=== PATIENT | male | born 1955 | race Caucasian/White ===

== ENCOUNTER 2017-07-03 13:27 | Emergency (ER) | payer BC ==
[2017-07-03] MEDS ORDERED: ONDANSETRON HCL INJ/PF 4 MG/2 ML SDV IV ONE (14:34)
[2017-07-03] MEDS ORDERED: NORMAL SALINE 1000 ML 1,000 ML IV ONE ×2 (14:34→18:09)
--- NOTE | 2017-07-03 14:38 | ER Document Report ---
ED Medical Screen (RME) - General Chief Complaint: Nausea Stated Complaint: NAUSEA Time Seen by Provider: 07/03/17 14:34 Notes: Patient states since Monday he has had some left lower quadrant pain and persistent nausea. As well as right flank pain. He states he has a history of kidney stones and diverticulitis in the past. TRAVEL OUTSIDE OF THE [place] IN LAST 30 DAYS: No - Related Data Allergies/Adverse Reactions: bismuth subsalicylate [From Pepto-Bismol] Allergy (Verified 07/03/17 13:29) Past Medical History - Past Medical History Cardiac Medical History: Reports: Hx Atrial Fibrillation, Hx Hypercholesterolemia, Hx Hypertension Neurological Medical History: Denies: Hx Seizures Endocrine Medical History: Reports: Hx Diabetes Mellitus Type 2 Renal/ Medical History: Reports: Hx Kidney Stones GI Medical History: Reports: Hx Diverticulitis Past Surgical History: Reports: Hx Cardiac Surgery - ABLASION, Hx Tonsillectomy - Immunizations Hx Diphtheria, Pertussis, Tetanus Vaccination: No Physical Exam - Vital signs Vitals: Temp Pulse Resp BP Pulse Ox 99.0 F 93 20 115/65 93 07/03/17 13:51 07/03/17 13:51 07/03/17 13:51 07/03/17 13:51 07/03/17 13:51 Course - Vital Signs Vital signs: Temp Pulse Resp BP Pulse Ox 99.0 F 93 20 115/65 93 07/03/17 13:51 07/03/17 13:51 07/03/17 13:51 07/03/17 13:51 07/03/17 13:51
[2017-07-03 15:30] LABS: ABSOLUTE BASOPHILS # (AUTO) 0.1 10^3/uL (0.0-0.2); ABSOLUTE EOSINOPHILS # (AUTO) 0.1 10^3/uL (0.0-0.6); ABSOLUTE LYMPHOCYTES (AUTO) 1.4 10^3/uL (0.5-4.7); ABSOLUTE MONOCYTES (AUTO) 1.2 10^3/uL (0.1-1.4); ABSOLUTE NEUT (AUTO) 11.9 10^3/uL (1.7-8.2); BASOPHILS % (AUTO) 0.4 % (0-2); EOSINOPHILS % (AUTO) 0.4 % (0-6); HEMATOCRIT 45.3 % (37.9-51.0); LYMPHOCYTES % (AUTO) 9.7 % (13-45); MEAN CORPUSCULAR HEMOGLOBIN 27.2 pg (27.0-33.4); MEAN CORPUSCULAR HGB CONC 33.2 g/dL (32.0-36.0); MEAN CORPUSCULAR VOLUME 82 fl (80-97); MONOCYTES % (AUTO) 7.9 % (3-13); PLATELET COUNT 273 10^3/uL (150-450); RED BLOOD COUNT 5.53 10^6/uL (4.35-5.55); RED CELL DISTRIBUTION WIDTH 15.3 % (11.5-14.0); SEGMENTED NEUTROPHILS % (AUTO) 81.6 % (42-78); TOTAL CELLS COUNTED % (AUTO) 100 %; WHITE BLOOD COUNT 14.5 10^3/uL (4.0-10.5)
[2017-07-03 15:49] LABS: ALANINE AMINOTRANSFERASE 70 U/L (21-72); ALBUMIN 4.6 g/dL (3.5-5.0); ALKALINE PHOSPHATASE 100 U/L (38-126); ANION GAP 14 (5-19); APPEARANCE,URINE CLOUDY; ASPARTATE AMINO TRANSFERASE 36 U/L (17-59); BILIRUBIN,DIRECT 0.5 mg/dL (0.0-0.4); BILIRUBIN,TOTAL 1.5 mg/dL (0.2-1.3); BILIRUBIN,URINE NEGATIVE (NEGATIVE); BLOOD UREA NITROGEN 24 mg/dL (7-20); CALCIUM 9.9 mg/dL (8.4-10.2); CALCIUM OXALATE CRYSTALS,URINE RARE /HPF; CARBON DIOXIDE 22 mmol/L (22-30); CHLORIDE 100 mmol/L (98-107); COLOR,URINE YELLOW; GLUCOSE 152 mg/dL (75-110); GLUCOSE, URINE NEGATIVE (NEGATIVE); KETONES,URINE TRACE mg/dL (NEGATIVE); LEUKOCYTE ESTERASE,URINE SMALL (NEGATIVE); LIPASE 69.1 U/L (23-300); NITRITE,URINE NEGATIVE (NEGATIVE); POTASSIUM 5.5 mmol/L (3.6-5.0); PROTEIN,URINE NEGATIVE (NEGATIVE); SODIUM 135.6 mmol/L (137-145); TOTAL PROTEIN 7.6 g/dL (6.3-8.2); TRIPLE PHOSPHATE CRYSTAL,URINE RARE /HPF; URINE SPECIFIC GRAVITY 1.021; UROBILINOGEN,URINE NEGATIVE mg/dL (<2.0)
--- NOTE | 2017-07-03 16:15 | RADIOLOGY REPORT (SQ) ---
EXAM DESCRIPTION: CT ABD/PELVIS NO ORAL OR IV COMPLETED DATE/TIME: 07/03/2017 3:56 pm REASON FOR STUDY: pain COMPARISON: 06/19/2014 TECHNIQUE: CT scan of the abdomen and pelvis performed without intravenous or oral contrast. Images reviewed with lung, soft tissue, and bone windows. Reconstructed coronal and sagittal MPR images revi ewed. All images stored on PACS. All CT scanners at this facility use dose modulation, iterative reconstruction, and/or weight based d osing when appropriate to reduce radiation dose to as low as reasonably achievable (ALARA). [facility]: Dose Right [facility]: CareDose [facility]: Dose Right [facility]: Teradose 4D [facility]: Smart [employer] RADIATION DOSE: CT Rad equipment meets quality standard of care and radiation dose reduction techniq ues were employed. CTDIvol: 19.2 mGy. DLP: 1154 mGy-cm.mGy. LIMITATIONS: None. FINDINGS: LOWER CHEST: No significant findings. No nodules or infiltrates. NON-CONTRASTED LIVER, SPLEEN, ADRENALS: The liver is somewhat low in density. There are no masses. The spleen and adrenal glands are normal. PANCREAS: No masses. No peripancreatic inflammatory changes. GALLBLADDER: The gallbladder appears to be contracted. There are no stones. RIGHT KIDNEY AND URETER: No suspicious masses. Assessment limited by lack of IV contrast. There is a 2 mm nonobstructing calculus. No hydronephrosis or hydroureter. LEFT KIDNEY AND URETER: No suspicious masses. Assessment limited by lack of IV contrast. There is a 10 x 12 mm intrarenal calculus. There is a 3 mm calculus at the left ureteral vesicle junction. M ild left hydronephrosis. AORTA AND RETROPERITONEUM: No aneurysm. No retroperitoneal masses or adenopathy. BOWEL AND PERITONEAL CAVITY: No obvious masses or inflammatory changes. No free fluid. APPENDIX: Normal. PELVIS, BLADDER, AND ABDOMINAL WALL:No abnormal masses. No free fluid. Bladder normal. BONES: No significant findings. OTHER: No other significant finding. IMPRESSION: 1. There is a relatively faint 3 mm calculus at the left ureteral vesicle junction resu lting in mild left hydronephrosis. 2. There is a 10 x 12 mm intrarenal calculus on the left. 3. There is fatty infiltration of the liver. COMMENT: Quality ID # [id number]: Final reports with documentation of one or more dose reduction techniques (e.g., Automated exposure control, adjustment of the mA and/or kV according to patient size, use of iterative reconstruction technique) TECHNICAL DOCUMENTATION: JOB ID: [id number] [employer]- All Rights Reserved Reading location - IP/workstation name: [email or web address]
[2017-07-03] MEDS ORDERED: METOCLOPRAMIDE HCL INJ/PF 10 MG/2 ML SDV IV ONE (18:09)
--- NOTE | 2017-07-03 18:09 | ER Document Report ---
ED GI/ - General Mode of Arrival: Ambulatory Information source: Patient TRAVEL OUTSIDE OF THE [place]. IN LAST 30 DAYS: No <TAMANNA QUINTERO - Last Filed: 07/03/17 21:04> <YANET HUI - Last Filed: 07/03/17 22:14> - General Chief Complaint: Nausea Stated Complaint: NAUSEA Time Seen by Provider: 07/03/17 14:34 Notes: Patient is a 62 year old male with a history of HTN, Type 2 diabetes,high cholesterol, diverticulitis and kidney stones presents to the emergency department complaining of left lower quadrant abdominal pain with associated symptoms of nausea and right flank pain onset 2 days ago. Patient states that he has been continuously vomiting for 2 days and states that this is his most concerning symptom. Patient denies any dysuria or fever. Patient states that he recently had a heart ablation. (TAMANNA QUINTERO) - Related Data Allergies/Adverse Reactions: bismuth subsalicylate [From Pepto-Bismol] Allergy (Verified 07/03/17 13:29) Past Medical History - General Information source: Patient - Social History Smoking Status: Unknown if Ever Smoked Chew tobacco use (# tins/day): No Frequency of alcohol use: None Drug Abuse: None Family History: Reviewed & Not Pertinent Patient has suicidal ideation: No Patient has homicidal ideation: No - Past Medical History Cardiac Medical History: Reports: Hx Atrial Fibrillation - ablation, Hx Hypercholesterolemia, Hx Hypertension Endocrine Medical History: Reports: Hx Diabetes Mellitus Type 2 Renal/ Medical History: Reports: Hx Kidney Stones GI Medical History: Reports: Hx Diverticulitis Past Surgical History: Reports: Hx Cardiac Surgery - ablation, Hx Tonsillectomy - Immunizations Hx Diphtheria, Pertussis, Tetanus Vaccination: No <TAMANNA QUINTERO - Last Filed: 07/03/17 21:04> Review of Systems - Review of Systems Constitutional: No symptoms reported EENT: No symptoms reported Cardiovascular: No symptoms reported Respiratory: No symptoms reported Gastrointestinal: See HPI, Abdominal pain, Nausea, Vomiting Genitourinary: See HPI, Flank pain Male Genitourinary: No symptoms reported Musculoskeletal: No symptoms reported Skin: No symptoms reported Hematologic/Lymphatic: No symptoms reported Neurological/Psychological: No symptoms reported -: Yes All other systems reviewed and negative <TAMANNA QUINTERO - Last Filed: 07/03/17 21:04> Physical Exam <LEONTAMANNA - Last Filed: 07/03/17 21:04> <YANET HUI - Last Filed: 07/03/17 22:14> - Vital signs Vitals: Temp Pulse Resp BP Pulse Ox 99.0 F 93 20 115/65 93 07/03/17 13:51 07/03/17 13:51 07/03/17 13:51 07/03/17 13:51 07/03/17 13:51 - Notes Notes: GENERAL: Alert, interacts well. No acute distress. Apeears uncomfortable. HEAD: Normocephalic, atraumatic. EYES: Pupils equal, round, and reactive to light. Extraocular movements intact. ENT: Oral mucosa dry, tongue midline. NECK: Full range of motion. Supple. Trachea midline. LUNGS: Clear to auscultation bilaterally, no wheezes, rales, or rhonchi. No respiratory distress. HEART: Regular rate and rhythm. No murmurs, gallops, or rubs. ABDOMEN: Soft, tender to palpation to the left pelvic area. Non-distended. Bowel sounds present in all 4 quadrants. EXTREMITIES: Moves all 4 extremities spontaneously. NEUROLOGICAL: Alert and oriented x3. Normal speech. PSYCH: Normal affect, normal mood. SKIN: Warm, dry, normal turgor. No rashes or lesions noted. (TAMANNA QUINTERO) Course - Laboratory Result Diagrams: 07/03/17 15:12 07/03/17 15:12 <TAMANNA QUINTERO - Last Filed: 07/03/17 21:04> - Laboratory Result Diagrams: 07/03/17 15:12 07/03/17 15:12 - Diagnostic Test Radiology reviewed: Reports reviewed <YANET HUI - Last Filed: 07/03/17 22:14> - Re-evaluation Re-evalutation: 07/03/17 18:36 Dr. Santana states the patient does not need to be transferred to [place] unless he spikes a fever. 07/03/17 19:48 Patient states he is currently feeling better. (TAMANNA QUINTERO) Patient presents with abdominal pain nausea and vomiting. Took Zofran at home without relief. CT showing ureteral stone. Patient also with some bacteria in urine. Discussed with Dr. Santana at [facility] who does not feel that the patient needs to be transferred at this time. Feels that elevation in BUN and creatinine is from vomiting. Patient was given Reglan and nausea able to take p.o. without difficulty. Pain is resolved. Nausea is resolved. Patient would prefer to go home at this time. He will be discharged home with medication for pain and nausea, as well as a prescription for Keflex. Urine culture has been sent. Patient is instructed to follow-up with urology and return immediately if there are any worsening or concerning symptoms. Understands and agrees with plan. Stable for discharge. (YANET HUI) - Vital Signs Vital signs: Temp Pulse Resp BP Pulse Ox 98.3 F 86 20 153/80 H 93 07/03/17 20:48 07/03/17 20:48 07/03/17 20:48 07/03/17 20:48 07/03/17 20:48 - Laboratory Laboratory results interpreted by me: 07/03/17 07/03/17 07/03/17 15:12 15:12 15:12 WBC 14.5 H RDW 15.3 H Seg Neutrophils % 81.6 H Lymphocytes % 9.7 L Absolute Neutrophils 11.9 H Sodium 135.6 L Potassium 5.5 H BUN 24 H Creatinine 1.58 H Est GFR ( Amer) 54 L Est GFR (Non-Af Amer) 45 L Glucose 152 H Total Bilirubin 1.5 H Direct Bilirubin 0.5 H Urine Ketones TRACE H Urine Blood MODERATE H Ur Leukocyte Esterase SMALL H Urine Ascorbic Acid 40 H Discharge <TAMANNA QUINTERO - Last Filed: 07/03/17 21:04> <YANET HUI - Last Filed: 07/03/17 22:14> - Discharge Clinical Impression: Ureteral stone UTI (urinary tract infection) Qualifiers: Urinary tract infection type: site unspecified Hematuria presence: with hematuria Qualified Code(s): N39.0 - Urinary tract infection, site not specified ; R31.9 - Hematuria, unspecified; R31.9 - Hematuria, unspecified Condition: Stable Disposition: HOME, SELF-CARE Instructions: Kidney Stone ([facility]), Urinary Tract Infection ([facility]) Additional Instructions: Please strain your urine. Follow-up with urology this week. Return immediately if you have any worsening or concerning symptoms. Prescriptions: Hydrocodone/Acetaminophen [[place] 5-325 mg Tablet] 1 tab PO Q4HP PRN #20 tablet PRN Reason: Cephalexin Monohydrate [Keflex 500 mg Capsule] 500 mg PO Q6H 5 Days #40 capsule Metoclopramide HCl [Reglan 10 mg Tablet] 1 tab PO TIDP PRN #25 tablet PRN Reason: Oxycodone HCl/Acetaminophen [Percocet 5-325 mg Tablet] 1 - 2 tab PO Q4H PRN #20 tablet PRN Reason: Referrals: WENDI SANTANA MD [NO LOCAL MD] - Follow up in 3-5 days CHARLIE MALDONADO MD [Primary Care Provider] - Follow up tomorrow Scribe Attestation: 07/03/17 22:14 I personally performed the services described in the documentation, reviewed and edited the documentation which was dictated to the scribe in my presence, and it accurately records my words and actions. (YANET HUI) Scribe Documentation - Scribe Written by Marcell:: Marcell Winters, 07/03/2017 18:33 acting as scribe for :: Jeanie <TAMANNA QUINTERO - Last Filed: 07/03/17 21:04>
[2017-07-03] MEDS ORDERED: CEPHALEXIN 500 MG CAPSULE PO ONE (20:09)
[2017-07-03] MEDS ORDERED: HYDROCODONE/ACETAMINOPHEN 5-325 MG (6 TAB/ER DISP) PO PRN (20:39)
[2017-07-03 21:06] VITALS: BP 153/80
== END 2017-07-03 21:06 | disposition home or self-care (01) ==
LOC: ER 13:27
DX: N13.2 Hydronephrosis with renal and ureteral calculous obstruction (principal); N39.0 Urinary tract infection, site not specified; R31.9 Hematuria, unspecified; R10.32 Left lower quadrant pain; R11.2 Nausea with vomiting, unspecified; I10 Essential (primary) hypertension; E11.9 Type 2 diabetes mellitus without complications; Z87.19 Personal history of other diseases of the digestive system; Z98.890 Other specified postprocedural states; Z88.8 Allergy status to other drugs, medicaments and biological substances
CPT/HCPCS: 99284; 96361; 96374; 96375; 36415; 87086; 83690; 85025; 80053; 81001; 74176; J2765; J2405; J7030

== ENCOUNTER 2017-10-21 15:42 | Emergency (ER) | payer BC ==
[2017-10-21] MEDS ORDERED: OXYCODONE-ACETAMINOPHEN 5-325 MG TABLET PO ONE (16:21)
[2017-10-21] MEDS ORDERED: ONDANSETRON 4 MG TAB.RAPDIS PO ONE (16:21)
--- NOTE | 2017-10-21 16:25 | ER Document Report ---
ED Medical Screen (RME) - General TRAVEL OUTSIDE OF THE [place]. IN LAST 30 DAYS: No <OLIVIA WARD - Last Filed: 10/21/17 16:25> <KYLEIGH HAND - Last Filed: 10/21/17 16:28> <MARLENI GARZA - Last Filed: 10/21/17 18:02> - General Chief Complaint: Flank Pain Stated Complaint: BLOOD IN URINE, SIDE PAIN, NAUSEA Time Seen by Provider: 10/21/17 16:13 Notes: Patient presents with hematuria and left lower quadrant pain for the last day. Feels similar to previous kidney stones he has had in the past. Chart review shows that patient had 3 mm left sided ureter vesicular junction stone back in June of this year. However, he also had a 10 x 12 mm stone that was intrarenal on the left. concern of if stone has displaced that he would possibly need lithotripsy versus stenting. Therefore, we will perform CT of abdomen pelvis for concern of obstructing stone. (KYLEIGH HAND) - Related Data Allergies/Adverse Reactions: bismuth subsalicylate [From Pepto-Bismol] Allergy (Verified 10/21/17 16:16) Past Medical History - Social History Chew tobacco use (# tins/day): No Frequency of alcohol use: None Drug Abuse: None - Past Medical History Cardiac Medical History: Reports: Hx Atrial Fibrillation - ablation, Hx Hypercholesterolemia, Hx Hypertension Neurological Medical History: Denies: Hx Seizures Endocrine Medical History: Reports: Hx Diabetes Mellitus Type 2 Renal/ Medical History: Reports: Hx Kidney Stones. Denies: Hx Peritoneal Dialysis GI Medical History: Reports: Hx Diverticulitis Past Surgical History: Reports: Hx Cardiac Surgery - ablation, Hx Tonsillectomy - Immunizations Hx Diphtheria, Pertussis, Tetanus Vaccination: No <OLIVIA WARD - Last Filed: 10/21/17 16:25> - Vital signs Vitals: Temp Pulse Resp BP Pulse Ox 97.7 F 86 20 119/72 94 10/21/17 15:59 10/21/17 15:59 10/21/17 15:59 10/21/17 15:59 10/21/17 15:59 Course - Laboratory Result Diagrams: 10/21/17 16:40 10/21/17 16:40 <MARLENI GARZA - Last Filed: 10/21/17 18:02> - Vital Signs Vital signs: Temp Pulse Resp BP Pulse Ox 97.7 F 86 20 119/72 94 10/21/17 15:59 10/21/17 15:59 10/21/17 15:59 10/21/17 15:59 10/21/17 15:59 - Laboratory Laboratory results interpreted by me: 10/21/17 10/21/17 10/21/17 16:30 16:40 16:40 WBC 15.0 H RDW 14.1 H Absolute Neutrophils 11.1 H Absolute Monocytes 1.8 H BUN 27 H Creatinine 1.30 H Est GFR (Non-Af Amer) 56 L Glucose 167 H Total Bilirubin 1.4 H Urine Ketones TRACE H Doctor's Discharge <OLIVIA WARD - Last Filed: 10/21/17 16:25> <KYLEIGH HAND - Last Filed: 10/21/17 16:28> <MARLENI GARZA - Last Filed: 10/21/17 18:02> - Discharge Referrals: CHARLIE MALDONADO MD [Primary Care Provider] - Follow up as needed
[2017-10-21] MEDS ORDERED: HYDROCODONE/ACETAMINOPHEN 5-325 MG TABLET PO ONE (16:32)
[2017-10-21 17:05] LABS: ABSOLUTE EOSINOPHILS # (AUTO) 0.1 10^3/uL (0.0-0.6); ABSOLUTE MONOCYTES (AUTO) 1.8 10^3/uL (0.1-1.4); ABSOLUTE NEUT (AUTO) 11.1 10^3/uL (1.7-8.2); BASOPHILS % (AUTO) 0.3 % (0-2); EOSINOPHILS % (AUTO) 0.5 % (0-6); HEMOGLOBIN 15.2 g/dL (13.5-17.0); LYMPHOCYTES % (AUTO) 13.3 % (13-45); MEAN CORPUSCULAR HEMOGLOBIN 28.2 pg (27.0-33.4); MEAN CORPUSCULAR HGB CONC 33.6 g/dL (32.0-36.0); MEAN CORPUSCULAR VOLUME 84 fl (80-97); MONOCYTES % (AUTO) 12.2 % (3-13); PLATELET COUNT 269 10^3/uL (150-450); RED BLOOD COUNT 5.38 10^6/uL (4.35-5.55); RED CELL DISTRIBUTION WIDTH 14.1 % (11.5-14.0); SEGMENTED NEUTROPHILS % (AUTO) 73.7 % (42-78); TOTAL CELLS COUNTED % (AUTO) 100 %
[2017-10-21 17:14] LABS: APPEARANCE,URINE SLIGHTLY-CLOUDY; BILIRUBIN,URINE NEGATIVE (NEGATIVE); CALCIUM OXALATE CRYSTALS,URINE MODERATE /HPF; COLOR,URINE YELLOW; GLUCOSE, URINE NEGATIVE (NEGATIVE); KETONES,URINE TRACE mg/dL (NEGATIVE); LEUKOCYTE ESTERASE,URINE NEGATIVE (NEGATIVE); NITRITE,URINE NEGATIVE (NEGATIVE); PROTEIN,URINE NEGATIVE (NEGATIVE); URINE SPECIFIC GRAVITY 1.023; UROBILINOGEN,URINE NEGATIVE mg/dL (<2.0)
--- NOTE | 2017-10-21 17:15 | RADIOLOGY REPORT (SQ) ---
EXAM DESCRIPTION: CT ABD/PELVIS NO ORAL OR IV COMPLETED DATE/TIME: 10/21/2017 4:59 pm REASON FOR STUDY: kidney stone COMPARISON: 07/03/2017 TECHNIQUE: CT scan of the abdomen and pelvis performed without intravenous or oral contrast. Images reviewed with lung, soft tissue, and bone windows. Reconstructed coronal and sagittal MPR images revi ewed. All images stored on PACS. All CT scanners at this facility use dose modulation, iterative reconstruction, and/or weight based d osing when appropriate to reduce radiation dose to as low as reasonably achievable (ALARA). [facility]: Dose Right [facility]: CareDose [facility]: Dose Right [facility]: Teradose 4D [facility]: [employer] RADIATION DOSE: CT Rad equipment meets quality standard of care and radiation dose reduction techniq ues were employed. CTDIvol: 19.2 mGy. DLP: 1183 mGy-cm.mGy. LIMITATIONS: None. FINDINGS: LOWER CHEST: No significant findings. No nodules or infiltrates. NON-CONTRASTED LIVER, SPLEEN, ADRENALS: Evaluation limited by lack of IV contrast. No identified sign ificant masses. Hepatic steatosis. PANCREAS: No masses. No peripancreatic inflammatory changes. GALLBLADDER: No identified stones by CT criteria. No inflammatory changes to suggest cholecystitis. RIGHT KIDNEY AND URETER: No suspicious masses. Assessment limited by lack of IV contrast. 2 punctat e, nonobstructing nephroliths. No hydronephrosis or hydroureter. LEFT KIDNEY AND URETER: No suspicious masses. Assessment limited by lack of IV contrast. Moderate h ydronephrosis on the basis of a 1.1 x 0.9 x 1.3 cm proximal ureterolith. AORTA AND RETROPERITONEUM: No aneurysm. No retroperitoneal masses or adenopathy. BOWEL AND PERITONEAL CAVITY: No obvious masses or inflammatory changes. No free fluid. APPENDIX: Normal. PELVIS, BLADDER, AND ABDOMINAL WALL:No abnormal masses. No free fluid. Bladder normal. BONES: No significant findings. OTHER: No other significant finding. IMPRESSION: 1. Moderate left-sided hydronephrosis on the basis of a 1.1 x 0.9 x 1.3 cm proximal ure terolith. 2. Hepatic steatosis. COMMENT: Quality ID # [id number]: Final reports with documentation of one or more dose reduction techniques (e.g., Automated exposure control, adjustment of the mA and/or kV according to patient size, use of iterative reconstruction technique) TECHNICAL DOCUMENTATION: JOB ID: [id number] [employer]- All Rights Reserved Reading location - IP/workstation name: [email or web address]
--- NOTE | 2017-10-21 17:15 | ER Document Report ---
ED General - General Chief Complaint: Flank Pain Stated Complaint: BLOOD IN URINE, SIDE PAIN, NAUSEA Time Seen by Provider: 10/21/17 16:13 Mode of Arrival: Ambulatory Information source: Patient Notes: 62-year-old male presents emergency department planes of left flank, left lower quadrant pain and hematuria. Patient states that this is been going on for 1 day. He states that he has had some kidney stones in the past. He states that this feels similar to his previous stones. He states that the last time he had a stone was in June. He says it was 3 mm in size. Patient has had associated nausea vomiting. He denies any diarrhea, constipation, penile discharge, testicular pain. TRAVEL OUTSIDE OF THE [place] IN LAST 30 DAYS: No - HPI Onset: Yesterday Onset/Duration: Sudden Quality of pain: Achy, Stabbing, Throbbing Severity: Moderate Associated symptoms: Nausea, Vomiting Exacerbated by: Denies Relieved by: Denies Similar symptoms previously: Yes Recently seen / treated by doctor: No - Related Data Allergies/Adverse Reactions: bismuth subsalicylate [From Pepto-Bismol] Allergy (Verified 10/21/17 16:16) Past Medical History - Social History Smoking Status: Never Smoker Chew tobacco use (# tins/day): No Frequency of alcohol use: None Drug Abuse: None Family History: Reviewed & Not Pertinent Patient has suicidal ideation: No Patient has homicidal ideation: No - Past Medical History Cardiac Medical History: Reports: Hx Atrial Fibrillation - ablation, Hx Hypercholesterolemia, Hx Hypertension Neurological Medical History: Denies: Hx Seizures Endocrine Medical History: Reports: Hx Diabetes Mellitus Type 2 Renal/ Medical History: Reports: Hx Kidney Stones. Denies: Hx Peritoneal Dialysis GI Medical History: Reports: Hx Diverticulitis Past Surgical History: Reports: Hx Cardiac Surgery - ablation, Hx Tonsillectomy - Immunizations Hx Diphtheria, Pertussis, Tetanus Vaccination: No Review of Systems - Review of Systems Constitutional: No symptoms reported EENT: No symptoms reported Cardiovascular: No symptoms reported Respiratory: No symptoms reported Gastrointestinal: Abdominal pain, Nausea, Vomiting Genitourinary: No symptoms reported Male Genitourinary: No symptoms reported Musculoskeletal: No symptoms reported Skin: No symptoms reported Hematologic/Lymphatic: No symptoms reported Neurological/Psychological: No symptoms reported -: Yes All other systems reviewed and negative Physical Exam - Vital signs Vitals: Temp Pulse Resp BP Pulse Ox 97.7 F 86 20 119/72 94 10/21/17 15:59 10/21/17 15:59 10/21/17 15:59 10/21/17 15:59 10/21/17 15:59 Interpretation: Normal - Notes Notes: PHYSICAL EXAMINATION: GENERAL: Well-appearing, well-nourished and in no acute distress. HEAD: Atraumatic, normocephalic. EYES: Pupils equal round and reactive to light, extraocular movements intact, sclera anicteric, conjunctiva are normal. ENT: Nares patent, oropharynx clear without exudates. Moist mucous membranes. NECK: Normal range of motion, supple without lymphadenopathy LUNGS: Breath sounds clear to auscultation bilaterally and equal. No wheezes rales or rhonchi. HEART: Regular rate and rhythm without murmurs ABDOMEN: Soft, nontender, nondistended abdomen. No guarding, no rebound. No masses appreciated. Musculoskeletal: Normal range of motion, no pitting or edema. No cyanosis. NEUROLOGICAL: Cranial nerves grossly intact. Normal speech, normal gait. Normal sensory, motor exams PSYCH: Normal mood, normal affect. SKIN: Warm, Dry, normal turgor, no rashes or lesions noted. Course - Re-evaluation Re-evalutation: 10/21/17 17:58 Exam unremarkable. Labs and imaging obtained. Labs significant for elevated WBC and slightly elevated creatinine. UA is significant for bacteria. CT abd/pelvis shows a L proximal ureter stone that has been previously evaluated. I will start the patient on antibiotics, pain medicine, nausea medicine and have him follow-up with urology. Patient is currently stable and asymptomatic. I discussed plan of care with the patient. He is agreeable with discharge home. 10/21/17 19:07 - Vital Signs Vital signs: Temp Pulse Resp BP Pulse Ox 97.7 F 86 20 119/72 94 10/21/17 15:59 10/21/17 15:59 10/21/17 15:59 10/21/17 15:59 10/21/17 15:59 - Laboratory Result Diagrams: 10/21/17 16:40 10/21/17 16:40 Laboratory results interpreted by me: 10/21/17 10/21/17 10/21/17 16:30 16:40 16:40 WBC 15.0 H RDW 14.1 H Absolute Neutrophils 11.1 H Absolute Monocytes 1.8 H BUN 27 H Creatinine 1.30 H Est GFR (Non-Af Amer) 56 L Glucose 167 H Total Bilirubin 1.4 H Urine Ketones TRACE H Discharge - Discharge Clinical Impression: Left flank pain Condition: Good Disposition: HOME, SELF-CARE Instructions: Abdominal Pain ([facility]) Prescriptions: Hydrocodone/Acetaminophen [[place] 5-325 mg Tablet] 1 tab PO Q4 #5 tablet Ondansetron [Zofran Odt 4 mg Tablet] 1 - 2 tab PO Q4H PRN #15 tab.rapdis PRN Reason: For Nausea/Vomiting Referrals: CHARLIE MALDONADO MD [Primary Care Provider] - Follow up as needed JACK HOLLAND II, MD [[facility]] - Follow up as needed
[2017-10-21 17:17] LABS: ALANINE AMINOTRANSFERASE 67 U/L (21-72); ALKALINE PHOSPHATASE 70 U/L (38-126); ANION GAP 13 (5-19); ASPARTATE AMINO TRANSFERASE 54 U/L (17-59); BILIRUBIN,DIRECT 0.3 mg/dL (0.0-0.4); BILIRUBIN,TOTAL 1.4 mg/dL (0.2-1.3); BLOOD UREA NITROGEN 27 mg/dL (7-20); CALCIUM 9.3 mg/dL (8.4-10.2); CARBON DIOXIDE 26 mmol/L (22-30); CHLORIDE 98 mmol/L (98-107); GLUCOSE 167 mg/dL (75-110); POTASSIUM 4.9 mmol/L (3.6-5.0); SODIUM 137.2 mmol/L (137-145); TOTAL PROTEIN 6.7 g/dL (6.3-8.2)
[2017-10-21 20:27] VITALS: BP 140/75
== END 2017-10-21 20:00 | disposition home or self-care (01) ==
LOC: ER 15:42
DX: N13.2 Hydronephrosis with renal and ureteral calculous obstruction (principal); R31.9 Hematuria, unspecified; R10.32 Left lower quadrant pain; R10.9 Unspecified abdominal pain; R11.2 Nausea with vomiting, unspecified; D72.829 Elevated white blood cell count, unspecified; I10 Essential (primary) hypertension; E11.9 Type 2 diabetes mellitus without complications; Z88.8 Allergy status to other drugs, medicaments and biological substances
CPT/HCPCS: 99284; 36415; 87086; 85025; 87088; 80053; 81001; 74176; S0119

== ENCOUNTER 2017-10-22 18:31 | Inpatient (IN) | payer BC ==
[2017-10-22] MEDS ORDERED: HYDROMORPHONE HCL INJ/PF 2 MG/ML AMPULE IV ONE (19:37)
[2017-10-22] MEDS ORDERED: NORMAL SALINE 1000 ML 1,000 ML IV ONE (19:37)
[2017-10-22] MEDS ORDERED: METOCLOPRAMIDE HCL INJ/PF 10 MG/2 ML SDV IV ONE (19:37)
--- NOTE | 2017-10-22 19:37 | ER Document Report ---
ED Medical Screen (RME) - General Chief Complaint: Possible Kidney Stone Stated Complaint: LEFT FLANK PAIN,NAUSEA Time Seen by Provider: 10/22/17 19:36 Mode of Arrival: Ambulatory Information source: Patient, COUNTS INCLUDE 234 BEDS AT THE [facility] Records Notes: 62-year-old male who was diagnosed with a kidney stone yesterday presents with complaints of continued pain nausea vomiting inability to keep anything down I have greeted and performed a rapid initial assessment of this patient. A comprehensive ED assessment and evaluation of the patient, analysis of test results and completion of the medical decision making process will be conducted by additional ED providers. PHYSICAL EXAMINATION: GENERAL: Well-appearing, well-nourished and in no acute distress. HEAD: Atraumatic, normocephalic. EYES: Pupils equal round extraocular movements intact, conjunctiva are normal. ENT: Nares patent NECK: Normal range of motion LUNGS: No respiratory distress Musculoskeletal: Normal range of motion NEUROLOGICAL: Normal speech, normal gait. PSYCH: Normal mood, normal affect. SKIN: Warm, Dry, normal turgor, no rashes or lesions noted. TRAVEL OUTSIDE OF THE [place] IN LAST 30 DAYS: No - Related Data Allergies/Adverse Reactions: bismuth subsalicylate [From Pepto-Bismol] Allergy (Verified 10/22/17 19:31) Past Medical History - Social History Chew tobacco use (# tins/day): No Frequency of alcohol use: None Drug Abuse: None - Past Medical History Cardiac Medical History: Reports: Hx Atrial Fibrillation - ablation, Hx Hypercholesterolemia, Hx Hypertension Neurological Medical History: Denies: Hx Seizures Endocrine Medical History: Reports: Hx Diabetes Mellitus Type 2 Renal/ Medical History: Reports: Hx Kidney Stones. Denies: Hx Peritoneal Dialysis GI Medical History: Reports: Hx Diverticulitis Past Surgical History: Reports: Hx Cardiac Surgery - ablation, Hx Tonsillectomy - Immunizations Hx Diphtheria, Pertussis, Tetanus Vaccination: No Physical Exam - Vital signs Vitals: Temp Pulse Resp BP Pulse Ox 98.4 F 98 24 H 141/77 H 96 10/22/17 18:50 10/22/17 18:50 10/22/17 18:50 10/22/17 18:50 10/22/17 18:50 Course - Vital Signs Vital signs: Temp Pulse Resp BP Pulse Ox 98.4 F 98 24 H 141/77 H 96 10/22/17 18:50 10/22/17 18:50 10/22/17 18:50 10/22/17 18:50 10/22/17 18:50 Doctor's Discharge - Discharge Referrals: CHARLIE MALDONADO MD [Primary Care Provider] - Follow up as needed
[2017-10-22 20:35] LABS: ABSOLUTE LYMPHOCYTES (AUTO) 1.5 10^3/uL (0.5-4.7); ABSOLUTE MONOCYTES (AUTO) 1.4 10^3/uL (0.1-1.4); ABSOLUTE NEUT (AUTO) 11.4 10^3/uL (1.7-8.2); BASOPHILS % (AUTO) 0.1 % (0-2); EOSINOPHILS % (AUTO) 0.3 % (0-6); HEMOGLOBIN 14.7 g/dL (13.5-17.0); LYMPHOCYTES % (AUTO) 10.3 % (13-45); MEAN CORPUSCULAR HEMOGLOBIN 27.8 pg (27.0-33.4); MEAN CORPUSCULAR HGB CONC 33.4 g/dL (32.0-36.0); MEAN CORPUSCULAR VOLUME 83 fl (80-97); MONOCYTES % (AUTO) 9.8 % (3-13); PLATELET COUNT 285 10^3/uL (150-450); RED BLOOD COUNT 5.28 10^6/uL (4.35-5.55); RED CELL DISTRIBUTION WIDTH 14.2 % (11.5-14.0); SEGMENTED NEUTROPHILS % (AUTO) 79.5 % (42-78); TOTAL CELLS COUNTED % (AUTO) 100 %; WHITE BLOOD COUNT 14.3 10^3/uL (4.0-10.5)
[2017-10-22 20:51] LABS: ALANINE AMINOTRANSFERASE 65 U/L (21-72); ALKALINE PHOSPHATASE 81 U/L (38-126); ANION GAP 15 (5-19); ASPARTATE AMINO TRANSFERASE 43 U/L (17-59); BILIRUBIN,DIRECT 0.5 mg/dL (0.0-0.4); BILIRUBIN,TOTAL 1.8 mg/dL (0.2-1.3); BLOOD UREA NITROGEN 24 mg/dL (7-20); CALCIUM 9.3 mg/dL (8.4-10.2); CARBON DIOXIDE 24 mmol/L (22-30); CHLORIDE 96 mmol/L (98-107); GLUCOSE 197 mg/dL (75-110); POTASSIUM 4.8 mmol/L (3.6-5.0); SODIUM 135.4 mmol/L (137-145); TOTAL PROTEIN 6.7 g/dL (6.3-8.2)
--- NOTE | 2017-10-22 21:14 | ER Document Report ---
ED GI/ - General Chief Complaint: Possible Kidney Stone Stated Complaint: LEFT FLANK PAIN,NAUSEA Time Seen by Provider: 10/22/17 19:36 Mode of Arrival: Ambulatory Notes: Patient is a 62-year-old male that comes emergency department for chief complaint of pain to his left flank and abdomen on the left side along with being very nauseated and having multiple episodes of dry heaves today. He has had about 5 episodes of vomiting today. Patient was seen here yesterday, diagnosed with a left-sided ureterolithiasis, patient states that he wanted to go home, he is taking his medications at home but they do not seem to be working. Patient denies fever or chills. Denies dysuria. Denies any other complaints. Patient has had kidney stones in the past which he has passed. Other medical history includes atrial fibrillation (post ablation) and Eliquis although he has not taken Eliquis for the past 5 days anticipating a back injection. TRAVEL OUTSIDE OF THE [place] IN LAST 30 DAYS: No - Related Data Allergies/Adverse Reactions: bismuth subsalicylate [From Pepto-Bismol] Allergy (Verified 10/22/17 19:31) Past Medical History - General Information source: Patient, [facility] Records - Social History Smoking Status: Never Smoker Chew tobacco use (# tins/day): No Frequency of alcohol use: None Drug Abuse: None Family History: Reviewed & Not Pertinent Patient has suicidal ideation: No Patient has homicidal ideation: No - Past Medical History Cardiac Medical History: Reports: Hx Atrial Fibrillation - ablation, Hx Hypercholesterolemia, Hx Hypertension Neurological Medical History: Denies: Hx Seizures Endocrine Medical History: Reports: Hx Diabetes Mellitus Type 2 Renal/ Medical History: Reports: Hx Kidney Stones. Denies: Hx Peritoneal Dialysis GI Medical History: Reports: Hx Diverticulitis Past Surgical History: Reports: Hx Cardiac Surgery - ablation, Hx Tonsillectomy - Immunizations Hx Diphtheria, Pertussis, Tetanus Vaccination: No Review of Systems - Review of Systems Constitutional: No symptoms reported EENT: No symptoms reported Cardiovascular: No symptoms reported Respiratory: No symptoms reported Gastrointestinal: See HPI Genitourinary: See HPI Male Genitourinary: No symptoms reported Musculoskeletal: No symptoms reported Skin: No symptoms reported Hematologic/Lymphatic: No symptoms reported Neurological/Psychological: No symptoms reported Physical Exam - Vital signs Vitals: Temp Pulse Resp BP Pulse Ox 98.4 F 98 24 H 141/77 H 96 10/22/17 18:50 10/22/17 18:50 10/22/17 18:50 10/22/17 18:50 10/22/17 18:50 - Notes Notes: GENERAL: Alert, interacts well. Patient slightly restless and mildly uncomfortable in appearance but no severe distress. HEAD: Normocephalic, atraumatic. EYES: Pupils equal, round, and reactive to light. Extraocular movements intact. ENT: Oral mucosa moist, tongue midline. NECK: Full range of motion. Supple. Trachea midline. LUNGS: Clear to auscultation bilaterally, no wheezes, rales, or rhonchi. No respiratory distress. HEART: Regular rate and rhythm. No murmur ABDOMEN: Soft, non-tender. Non-distended. Bowel sounds present in all 4 quadrants. EXTREMITIES: Moves all 4 extremities spontaneously. No edema, normal radial and dorsalis pedis pulses bilaterally. No cyanosis. BACK: no cervical, thoracic, lumbar midline tenderness. Right CVA tenderness. Normal distal neurovascular exam. NEUROLOGICAL: Alert and oriented x3. Normal speech. [cranial nerves II through XII grossly intact]. SKIN: Warm, dry, normal turgor. No rashes or lesions noted. Course - Re-evaluation Re-evalutation: Patient appears mildly uncomfortable but not in any severe distress. Soft abdomen. He still reports he is extremely nauseated. He has had dry heaves multiple times a day although he did take his medications earlier. No fever. CBC without significant change, chemistry shows renal insufficiency but similar to prior. Urine shows ketones and elevated specific gravity consistent with dehydration. Giving IV fluids and medications. Patient's CAT scan shows a left proximal ureter obstructing stone with hydronephrosis, this is a very large stone at 1.3 cm. Unfortunately patient has done very poorly with outpatient management, even though this was attempted and patient wanted to attempt this. Called and spoke with Dr. Elliott, urology flight information expediter, after discussion recommendation is for patient to be admitted to hospitalist service with urology consult, requests the patient be kept n.p.o. after midnight and not be given his Eliquis. He states that he might need to keep patient until Monday, might need the laser. 10/22/17 21:35 Patient requesting to be given his Tekosyn, told never to miss a dose by his pen tender. Called and spoke with Dr. Monroy, on-call for Dr. Bassett (patient's primary care provider), patient will be admitted to telemetry full admission. - Vital Signs Vital signs: Temp Pulse Resp BP Pulse Ox 98.4 F 98 24 H 141/77 H 96 10/22/17 18:50 10/22/17 18:50 10/22/17 18:50 10/22/17 18:50 10/22/17 18:50 - Laboratory Result Diagrams: 10/22/17 19:46 10/22/17 19:46 Laboratory results interpreted by me: 10/22/17 10/22/17 10/22/17 19:46 19:46 21:20 WBC 14.3 H RDW 14.2 H Seg Neutrophils % 79.5 H Lymphocytes % 10.3 L Absolute Neutrophils 11.4 H Sodium 135.4 L Chloride 96 L BUN 24 H Creatinine 1.37 H Est GFR (Non-Af Amer) 53 L Glucose 197 H Total Bilirubin 1.8 H Direct Bilirubin 0.5 H Urine Protein 30 H Urine Glucose (UA) 50 H Urine Ketones 20 H Urine Urobilinogen 2.0 H Urine Ascorbic Acid 40 H Discharge - Discharge Clinical Impression: Ureterolithiasis, Flank pain, Acute renal insufficiency Vomiting Qualifiers: Vomiting type: unspecified Vomiting Intractability: intractable Nausea presence : with nausea Qualified Code(s): R11.2 - Nausea with vomiting, unspecified Condition: Stable Disposition: ADMITTED INPATIENT Admitting Provider: Eliana - for Dr. Bassett Unit Admitted: Telemetry
[2017-10-22] MEDS ORDERED: DIPHENHYDRAMINE HCL 50 MG/ML VIAL IV ONE (21:27)
[2017-10-22] MEDS ORDERED: DOFETILIDE 125 MCG CAPSULE PO ONE (21:34)
[2017-10-22] MEDS ORDERED: DOFETILIDE 125 MCG CAPSULE ONE (21:46)
[2017-10-22 21:55] LABS: APPEARANCE,URINE SLIGHTLY-CLOUDY; BILIRUBIN,URINE NEGATIVE (NEGATIVE); COLOR,URINE AMBER; GLUCOSE, URINE 50 mg/dL (NEGATIVE); KETONES,URINE 20 mg/dL (NEGATIVE); LEUKOCYTE ESTERASE,URINE NEGATIVE (NEGATIVE); NITRITE,URINE NEGATIVE (NEGATIVE); PROTEIN,URINE 30 mg/dL (NEGATIVE); URINE SPECIFIC GRAVITY 1.028
[2017-10-22] MEDS ORDERED: OXYCODONE-ACETAMINOPHEN 5-325 MG TABLET PO PRN (22:19)
[2017-10-22] MEDS ORDERED: NORMAL SALINE 1000 ML 1,000 ML IV PRN (22:21)
[2017-10-22] MEDS ORDERED: ATORVASTATIN CALCIUM 10 MG TABLET PO ONE (22:30)
[2017-10-22] MEDS: CEPHALEXIN 500 MG CAPSULE PO SCH (23:15)
[2017-10-23] MEDS: HYDROCODONE/ACETAMINOPHEN 5-325 MG TABLET PO SCH ×2 (01:51→06:10)
[2017-10-23] MEDS ORDERED: MORPHINE SULFATE 10 MG/ML INJ IV ONE (05:00)
[2017-10-23] MEDS: HEPARIN SOD (PORCINE) 5,000 UNIT/ML 1 ML SYRINGE SUBCUT SCH ×3 (05:28→23:26)
[2017-10-23] MEDS: CEPHALEXIN 500 MG CAPSULE PO SCH ×2 (05:28→23:26)
[2017-10-23 07:13] LABS: ABSOLUTE EOSINOPHILS # (AUTO) 0.1 10^3/uL (0.0-0.6); ABSOLUTE LYMPHOCYTES (AUTO) 1.4 10^3/uL (0.5-4.7); ABSOLUTE MONOCYTES (AUTO) 1.5 10^3/uL (0.1-1.4); ABSOLUTE NEUT (AUTO) 8.2 10^3/uL (1.7-8.2); BASOPHILS % (AUTO) 0.2 % (0-2); EOSINOPHILS % (AUTO) 0.7 % (0-6); HEMATOCRIT 41.6 % (37.9-51.0); HEMOGLOBIN 13.9 g/dL (13.5-17.0); LYMPHOCYTES % (AUTO) 12.8 % (13-45); MEAN CORPUSCULAR HEMOGLOBIN 28.1 pg (27.0-33.4); MEAN CORPUSCULAR HGB CONC 33.5 g/dL (32.0-36.0); MEAN CORPUSCULAR VOLUME 84 fl (80-97); PLATELET COUNT 203 10^3/uL (150-450); RED BLOOD COUNT 4.97 10^6/uL (4.35-5.55); RED CELL DISTRIBUTION WIDTH 13.8 % (11.5-14.0); SEGMENTED NEUTROPHILS % (AUTO) 73.3 % (42-78); TOTAL CELLS COUNTED % (AUTO) 100 %; WHITE BLOOD COUNT 11.2 10^3/uL (4.0-10.5)
[2017-10-23 07:35] LABS: BLOOD UREA NITROGEN 22 mg/dL (7-20); CALCIUM 8.6 mg/dL (8.4-10.2); GLUCOSE 135 mg/dL (75-110)
[2017-10-23 07:36] LABS: ANION GAP 11 (5-19); CARBON DIOXIDE 27 mmol/L (22-30); CHLORIDE 99 mmol/L (98-107); POTASSIUM 4.3 mmol/L (3.6-5.0); SODIUM 137.2 mmol/L (137-145)
--- NOTE | 2017-10-23 07:36 | PDOC CONSULTATION ---
Consultation Consult Date: 10/23/17 Consult reason:: Left UPJ stone History of Present Illness Admission Date/PCP: 10/22/17 22:15 CHARLIE MALDONADO Patient complains of: Left flank pain and nausea for 3 days History of Present Illness: LEATHA CAPONE is a 62 year old male Past Medical History Cardiac Medical History: Reports: Atrial Fibrillation - ablation, Hyperlipidema , Hypertension Neurological Medical History: Denies: Seizures Endocrine Medical History: Reports: Diabetes Mellitus Type 2 GI Medical History: Reports: Diverticulitis Past Surgical History Past Surgical History: Reports: Tonsillectomy Social History Smoking Status: Never Smoker Frequency of Alcohol Use: None Hx Recreational Drug Use: No Drugs: None Hx Prescription Drug Abuse: No Family History Family History: Reviewed & Not Pertinent Parental Family History Reviewed: No Children Family History Reviewed: No Sibling(s) Family History Reviewed.: No Medication/Allergy Home Medications: Atorvastatin Calcium [Lipitor] 10 mg PO DAILY #30 tablet 06/26/14 Glimepiride [Amaryl 4 mg Tablet] 4 mg PO DAILY #30 tablet 06/26/14 Isosorbide Mononitrate [Imdur 60 mg Tablet.er] 120 mg PO DAILY #30 tab.er.24h Tamsulosin HCl 0.4 mg PO DAILY #30 cap.er.24h 06/26/14 Doxazosin Mesylate 4 mg PO QHS 06/09/15 Metformin HCl [Glucophage 850 mg Tablet] 850 mg PO BID 06/09/15 Olmesartan Medoxomil [Benicar] 40 mg PO DAILY 06/09/15 Apixaban [Eliquis 5 mg Tablet] 5 mg PO Q12 01/04/17 Diltiazem HCl [Diltiazem 24Hr ER] 360 mg PO DAILY 01/04/17 Dofetilide [Dofetilide] 250 mcg PO BID 01/04/17 Fluticasone Propionate [Flonase Nasal [place] 50 Mcg/[place] 16 gm] 1 spray NASL DAILY 01/04/17 Labetalol HCl [Trandate] 300 mg PO BID 01/04/17 Levocetirizine Dihydrochloride [Xyzal] 5 mg PO QPM 01/04/17 Ondansetron [Zofran Odt 4 mg Tablet] 4 mg PO Q4HP PRN 01/04/17 Spironolactone 25 mg PO DAILY 01/04/17 Cephalexin Monohydrate [Keflex 500 mg Capsule] 500 mg PO Q6H 5 Days #40 capsule 07/03/17 Hydrocodone/Acetaminophen [Sloan 5-325 mg Tablet] 1 tab PO Q4HP PRN #20 tablet 07/03/17 Metoclopramide HCl [Reglan 10 mg Tablet] 1 tab PO TIDP PRN #25 tablet 07/03/17 Oxycodone HCl/Acetaminophen [Percocet 5-325 mg Tablet] 1 - 2 tab PO Q4H PRN #20 tablet 07/03/17 Cephalexin Monohydrate [Keflex 500 mg Capsule] 500 mg PO Q6H 5 Days #20 capsule 10/21/17 Hydrocodone/Acetaminophen [Sloan 5-325 mg Tablet] 1 tab PO Q4 #5 tablet Ondansetron [Zofran Odt 4 mg Tablet] 1 - 2 tab PO Q4H PRN #15 tab.rapdis Allergies/Adverse Reactions: bismuth subsalicylate [From Pepto-Bismol] Allergy (Verified 10/22/17 19:31) Physical Exam Vital Signs: Temp Pulse Resp BP Pulse Ox 97.4 F 74 22 H 166/92 H 94 10/23/17 03:39 10/23/17 03:39 10/23/17 03:39 10/23/17 05:31 10/23/17 03:39 Intake & Output 10/22/17 10/23/17 10/24/17 06:59 06:59 06:59 Intake Total 560 Balance 560 Weight 142.4 kg Results Laboratory Results: 10/23/17 06:32 10/23/17 06:32 WBC 11.2 H RBC 4.97 Hgb 13.9 Hct 41.6 MCV 84 MCH 28.1 MCHC 33.5 RDW 13.8 Plt Count 203 Seg Neutrophils % 73.3 Lymphocytes % 12.8 L Monocytes % 13.0 Eosinophils % 0.7 Basophils % 0.2 Absolute Neutrophils 8.2 Absolute Lymphocytes 1.4 Absolute Monocytes 1.5 H Absolute Eosinophils 0.1 Absolute Basophils 0.0 Status: Image reviewed by me - There is an 11 X 9 mm stone in the left UPJ Assessment & Plan - Plan Summary Plan Summary: This patient is a 62 year old male with a history of stones in the past. He has had this stone since 2012 and it has progressively gotten larger. He has been to the ER twice with it recently. It is of a size that will probably not pass. Options were discussed with him for treatment or observation. He wishes to proceed with ureteroscopy and laser stone fragmentation. He will need a stent and that was discussed with him I will post him in the OR and hope the laser is available.
--- NOTE | 2017-10-23 08:36 | PDOC H&P ---
History of Present Illness Admission Date/PCP: 10/22/17 22:15 CHARLIE ОЛЕГHIGINIOHernán Patient complains of: Left flank pain, Nausea History of Present Illness: LEATHA CAPONE is a 62 year old male known to my practice who presented to the ED with compliant of left flank pain with nausea and vomiting as well as dry heaving. Patient has his of left side ureterolithiasis and noticed episode of hematuria about 3 days prior to presentation to the ED. He denied any fever or chills. His initial evaluation in the ED did confirm left ureterolithiasis. He was managed with IV Diluadid and any anti emetic therapy with some pain nad symptom relief. He was seen in consultation by urologist with plan for possible ureteroscopy and laser blasting of the renal stone. His morbidities include chronic Atrial Fibrillation, Hypertension, Hyperlipidemia, BPH with LUTS, Diabetes mellitus type 2, seasonal Allergy, Morbid Obesity, and Hypogonadisim. He will be admitted to telemetry bed for further evaluation and management. Past Medical History Cardiac Medical History: Reports: Atrial Fibrillation - ablation, Hyperlipidema , Hypertension Neurological Medical History: Denies: Seizures Endocrine Medical History: Reports: Diabetes Mellitus Type 2 GI Medical History: Reports: Diverticulitis Past Surgical History Past Surgical History: Reports: Tonsillectomy Social History Smoking Status: Never Smoker Frequency of Alcohol Use: None Hx Recreational Drug Use: No Drugs: None Hx Prescription Drug Abuse: No Family History Family History: Reviewed & Not Pertinent Parental Family History Reviewed: Yes Children Family History Reviewed: Yes Sibling(s) Family History Reviewed.: Yes Medication/Allergy Home Medications: Atorvastatin Calcium [Lipitor] 10 mg PO DAILY #30 tablet 06/26/14 Glimepiride [Amaryl 4 mg Tablet] 4 mg PO DAILY #30 tablet 06/26/14 Isosorbide Mononitrate [Imdur 60 mg Tablet.er] 120 mg PO DAILY #30 tab.er.24h Tamsulosin HCl 0.4 mg PO DAILY #30 cap.er.24h 06/26/14 Doxazosin Mesylate 4 mg PO QHS 06/09/15 Metformin HCl [Glucophage 850 mg Tablet] 850 mg PO BID 06/09/15 Olmesartan Medoxomil [Benicar] 40 mg PO DAILY 06/09/15 Apixaban [Eliquis 5 mg Tablet] 5 mg PO Q12 01/04/17 Diltiazem HCl [Diltiazem 24Hr ER] 360 mg PO DAILY 01/04/17 Dofetilide [Dofetilide] 250 mcg PO BID 01/04/17 Fluticasone Propionate [Flonase Nasal [place] 50 Mcg/[place] 16 gm] 1 spray NAREB DAILY 01/04/17 Labetalol HCl [Trandate] 300 mg PO Q12 01/04/17 Levocetirizine Dihydrochloride [Xyzal] 5 mg PO QPM 01/04/17 Spironolactone 25 mg PO DAILY 01/04/17 Gabapentin [Neurontin 300 mg Capsule] 300 mg PO Q8HP PRN 10/23/17 Promethazine HCl [Phenergan 25 mg Tablet] 25 mg PO Q6HP PRN 10/23/17 Allergies/Adverse Reactions: bismuth subsalicylate [From Pepto-Bismol] Allergy (Verified 10/22/17 19:31) Review of Systems Constitutional: ABSENT: chills, fever(s), headache(s), weight gain, weight loss Eyes: ABSENT: visual disturbances Ears: ABSENT: hearing changes Nose, Mouth, and Throat: ABSENT: as per HPI, headache(s), mouth pain, sore throat, vertigo, other Cardiovascular: ABSENT: chest pain, dyspnea on exertion, edema, orthropnea, palpitations Respiratory: ABSENT: cough, hemoptysis Gastrointestinal: PRESENT: abdominal pain - left flank region, nausea, vomiting. ABSENT: as per HPI, bloating, coffee ground emesis, constipation, diarrhea, dysphagia, heartburn, hematemesis, hematochezia, melena, other Genitourinary: PRESENT: hematuria. ABSENT: as per HPI, difficulty urinating, dysuria, nocturia, other Musculoskeletal: ABSENT: joint swelling Integumentary: ABSENT: rash, wounds Neurological: ABSENT: abnormal gait, abnormal speech, confusion, dizziness, focal weakness, syncope Psychiatric: ABSENT: anxiety, depression, homidical ideation, suicidal ideation Endocrine: ABSENT: cold intolerance, heat intolerance, polydipsia, polyuria Hematologic/Lymphatic: ABSENT: easy bleeding, easy bruising, lymphadenopathy Allergic/Immunologic: ABSENT: seasonal rhinorrhea Physical Exam Vital Signs: Temp Pulse Resp BP Pulse Ox 97.4 F 74 22 H 166/92 H 94 10/23/17 03:39 10/23/17 03:39 10/23/17 03:39 10/23/17 05:31 10/23/17 03:39 Intake & Output 10/22/17 10/23/17 10/24/17 06:59 06:59 06:59 Intake Total 560 Balance 560 Weight 142.4 kg General appearance: PRESENT: mild distress - from renal stone pain, morbidly obese Head exam: PRESENT: atraumatic, normocephalic Eye exam: PRESENT: conjunctiva pink, EOMI, PERRLA. ABSENT: scleral icterus Ear exam: PRESENT: normal external ear exam Mouth exam: PRESENT: moist, tongue midline Neck exam: PRESENT: full ROM. ABSENT: carotid bruit, JVD, lymphadenopathy, thyromegaly Respiratory exam: PRESENT: clear to auscultation warner Cardiovascular exam: PRESENT: RRR. ABSENT: diastolic murmur, rubs, systolic murmur Pulses: PRESENT: +2 pedal pulses bilateral Vascular exam: PRESENT: normal capillary refill. ABSENT: pallor GI/Abdominal exam: PRESENT: normal bowel sounds, soft, tenderness - Left CVA tenderness. ABSENT: distended, guarding, mass, organolmegaly, rebound Rectal exam: PRESENT: deferred Extremities exam: ABSENT: pedal edema Musculoskeletal exam: PRESENT: normal inspection Neurological exam: PRESENT: alert, awake, oriented to person, oriented to place , oriented to time, oriented to situation, CN II-XII grossly intact. ABSENT: motor sensory deficit Psychiatric exam: PRESENT: appropriate affect, normal mood. ABSENT: homicidal ideation, suicidal ideation Skin exam: PRESENT: dry, intact, warm. ABSENT: cyanosis, rash Results Laboratory Results: 10/23/17 06:32 10/23/17 06:32 10/23/17 10/23/17 06:32 06:32 WBC 11.2 H RBC 4.97 Hgb 13.9 Hct 41.6 MCV 84 MCH 28.1 MCHC 33.5 RDW 13.8 Plt Count 203 Seg Neutrophils % 73.3 Lymphocytes % 12.8 L Monocytes % 13.0 Eosinophils % 0.7 Basophils % 0.2 Absolute Neutrophils 8.2 Absolute Lymphocytes 1.4 Absolute Monocytes 1.5 H Absolute Eosinophils 0.1 Absolute Basophils 0.0 Sodium 137.2 Potassium 4.3 Chloride 99 Carbon Dioxide 27 Anion Gap 11 BUN 22 H Creatinine 1.28 H Est GFR ( Amer) > 60 Est GFR (Non-Af Amer) 57 L Glucose 135 H Calcium 8.6 Assessment & Plan - Diagnosis (1) Ureterolithiasis Is this a current diagnosis for this admission?: Yes Plan: See admitting attending physician orders. (2) BPH loc w urin obs/LUTS Is this a current diagnosis for this admission?: Yes Plan: See admitting attending physician orders. (3) Diabetes mellitus Qualifiers: Diabetes mellitus type: type 2 Diabetes mellitus long-term insulin use: without watermelon inspector use Diabetes mellitus complication status: with hyperglycemia Qualified Code(s): E11.65 - Type 2 diabetes mellitus with hyperglycemia Is this a current diagnosis for this admission?: Yes Plan: See admitting attending physician orders. (4) Chronic atrial fibrillation Is this a current diagnosis for this admission?: Yes Plan: See admitting attending physician orders. (5) Hypertension Qualifiers: Hypertension type: essential hypertension Qualified Code(s): I10 - Essential (primary) hypertension Is this a current diagnosis for this admission?: Yes Plan: See admitting attending physician orders. (6) HLD (hyperlipidemia) Qualifiers: Hyperlipidemia type: pure hypercholesterolemia Qualified Code(s): E78.00 - Pure hypercholesterolemia, unspecified; E78.0 - Pure hypercholesterolemia Is this a current diagnosis for this admission?: Yes Plan: See admitting attending physician orders. (7) Seasonal allergic rhinitis Qualifiers: Allergic rhinitis trigger: unspecified Qualified Code(s): J30.2 - Other seasonal allergic rhinitis Is this a current diagnosis for this admission?: Yes Plan: See admitting attending physician orders. (8) Hypogonadism in male Is this a current diagnosis for this admission?: Yes Plan: See admitting attending physician orders. (9) Morbid obesity with BMI of 40.0-44.9, adult Is this a current diagnosis for this admission?: Yes Plan: See admitting attending physician orders. - Time Time Spent: 50 to 70 Minutes Medications reviewed and adjusted accordingly: Yes Anticipated discharge: Home Within: Other - Inpatient Certification Based on my medical assessment, after consideration of the patient's comorbidities, presenting symptoms, or acuity I expect that the services needed warrant INPATIENT care.: Yes I certify that my determination is in accordance with my understanding of Medicare's requirements for reasonable and necessary INPATIENT services [42 CFR 412.3e].: Yes Medical Necessity: Need Close Monitoring Due to Risk of Patient Decompensation, Need For IV Fluids, Need For Continuous Telemetry Monitoring, Need for IV Antibiotics, Need for Surgery, Risk of Complication if Not Cared For in Hospital Post Hospital Care: D/C Spice Mixer Documentation - Plan Summary Plan Summary: See admitting attending physician orders.
[2017-10-23] MEDS ORDERED: HYDROMORPHONE HCL INJ/PF 2 MG/ML AMPULE IV PRN ×2 (08:37→16:41)
[2017-10-23] MEDS ORDERED: DEXTROSE 40% GEL 15 GM TUBE PO PRN ×2 (08:39)
[2017-10-23] MEDS ORDERED: GLUCAGON,HUMAN RECOMB 1 MG INJ IM PRN (08:39)
[2017-10-23] MEDS ORDERED: DEXTROSE 50%-WATER 25 GM/50 ML DISP.SYRIN IV PRN ×2 (08:39)
[2017-10-23] MEDS: FLUTICASONE NASAL SPRAY 50 MCG/SPRY 120 SPRAY/16 GM NAREB SCH (09:16)
[2017-10-23] MEDS: LABETALOL HCL 200 MG TABLET PO SCH ×2 (09:16→18:59)
[2017-10-23] MEDS: DOFETILIDE 125 MCG CAPSULE PO SCH ×2 (09:18→18:59)
[2017-10-23] MEDS: SPIRONOLACTONE 25 MG TABLET PO SCH (09:19)
[2017-10-23] MEDS: ISOSORBIDE MONONITRATE 60 MG TAB.ER.24H PO SCH (09:19)
[2017-10-23] MEDS: TAMSULOSIN HCL 0.4 MG CAP.SR.24H PO SCH (09:19)
[2017-10-23] MEDS: DILTIAZEM HCL 120 MG CAP.SR.24H PO SCH (09:20)
[2017-10-23] MEDS ORDERED: LIDOCAINE 2% URO-JET 5 ML KIT ONE (10:27)
[2017-10-23] MEDS ORDERED: CEFTRIAXONE SODIUM 1,000 MG in DEXTROSE 5%-WATER 50 ML IV ONE (12:00)
[2017-10-23] MEDS ORDERED: LIDOCAINE 2% INJ-PF (20 MG/ML) 10 ML AMPUL ONE (13:01)
[2017-10-23] MEDS ORDERED: DEXAMETHASONE SOD PHOSPHATE INJ 4 MG/1 ML VIAL ONE (13:02)
[2017-10-23] MEDS ORDERED: MIDAZOLAM 2 MG/2 ML INJ ONE (13:02)
[2017-10-23] MEDS ORDERED: FENTANYL CITRATE INJ/PF 100 MCG/2 ML AMPUL ONE (13:02)
[2017-10-23] MEDS ORDERED: PROPOFOL INJ 200 MG/20 ML VIAL IV ONE (13:02)
[2017-10-23] MEDS ORDERED: SUCCINYLCHOLINE CHLORIDE INJ 200 MG/10 ML VIAL ONE (14:19)
[2017-10-23] MEDS ORDERED: DIPHENHYDRAMINE HCL 50 MG/ML VIAL IV PRN (16:21)
[2017-10-23] MEDS ORDERED: PROMETHAZINE HCL INJ 25 MG/1 ML VIAL IV PRN ×2 (16:21)
[2017-10-23] MEDS ORDERED: FENTANYL CITRATE INJ/PF 100 MCG/2 ML AMPUL IV PRN ×3 (16:21)
[2017-10-23] MEDS ORDERED: MEPERIDINE HCL/PF INJ 25 MG/1 ML DISP.SYRIN IV PRN (16:21)
[2017-10-23] MEDS ORDERED: MORPHINE SULFATE 10 MG/ML INJ IV PRN (16:21)
[2017-10-23] MEDS ORDERED: ONDANSETRON HCL INJ/PF 4 MG/2 ML SDV IV PRN (16:21)
--- NOTE | 2017-10-23 16:34 | Operative Report ---
Operative Report DATE OF SURGERY: 10/23/17 PREOPERATIVE DIAGNOSIS: Left UPJ stone with obstruction POSTOPERATIVE DIAGNOSIS: Same OPERATION: Cystoscopy, flexible ureteroscopy, holmium laser stone fragmentation , stone dusting, placement of left ureteral stent SURGEON: JACK HOLLAND II ANESTHESIA: GA TISSUE REMOVED OR ALTERED: Left UPJ stone fragmented PROCEDURE: Operative note Preop diagnosis: Left UPJ stone with obstruction Postoperative diagnosis: Same Procedure: Cystoscopy, ureteroscopy, laser stone fragmentation and stone dusting , placement of left ureteral stent, 6 [place] 26 cm graft Anesthesia: General Surgeon: Earl Seizure: The patient was taken to the cystoscopy suite and placed on the table. After adequate general anesthesia he was placed into the lithotomy position and prepped and draped in usual sterile fashion. Cystoscopy was carried out with a 22 [place] panendoscope. The left ureteral orifice was visualized. It was cannulated with a 0.035 guidewire. Guidewire was left in place and the cystoscope removed. A flexible ureteroscope was then placed beside the guidewire and advanced to the stone. The holmium laser was then used to fragment the stone into smaller pieces. The stone migrated proximally into the lower pole of the left kidney. The flexible ureteroscope was used to locate the stone and fragmentation continued. Small pieces of the stone were noted during the fragmentation process. At the termination of the procedure no definite stone fragments could be identified. It is possible that there are some larger stone fragments still present however it is felt that most of these would pass especially after stent placement. The procedure was terminated, the guidewire was used then to place a 6 [place] 26 cm double-pigtail stent in the left ureter utilizing the exchange technique. Once the stent was in good position fluoroscopically and by direct vision in the bladder, the cystoscope was then used to drain the bladder and the cystoscope removed. The patient was returned to PACU in satisfactory condition.
[2017-10-23] MEDS ORDERED: ONDANSETRON 4 MG TAB.RAPDIS PO PRN (16:41)
[2017-10-23] MEDS ORDERED: KETOROLAC TROMETHAMINE INJ/PF 30 MG/1 ML SDV IV PRN (16:42)
[2017-10-23] MEDS: NORMAL SALINE 1000 ML 1,000 ML IV PRN (17:14)
[2017-10-23] MEDS: METOCLOPRAMIDE HCL INJ/PF 10 MG/2 ML SDV IV PRN (17:40)
--- NOTE | 2017-10-23 18:41 | RADIOLOGY REPORT (SQ) ---
EXAM DESCRIPTION: NO CHG FLUORO; PYELOGRAM RETROGRADE COMPLETED DATE/TIME: 10/23/2017 4:23 pm; 10/23/2017 4:24 pm REASON FOR STUDY: RETROGRADE LEFT SIDE WITH LITHROTRISPY COMPARISON: CT scan 04/05/2016 FLUOROSCOPY TIME: 3 minutes 24 seconds 20 Images saved to PACS LIMITATIONS: None. PROCEDURE: Instrumentation of the left ureter with ureteral stent. FINDINGS: Instrumentation left ureter with ureteral stent. IMPRESSION: Instrumentation left ureter with ureteral stent. COMMENT: PQRS 6045F: Fluoroscopy time of the procedure is documented in the report. TECHNICAL DOCUMENTATION: JOB ID: [id number] [employer]- All Rights Reserved Reading location - IP/workstation name: [email or web address]
--- NOTE | 2017-10-23 18:41 | RADIOLOGY REPORT (SQ) ---
EXAM DESCRIPTION: NO CHG FLUORO; PYELOGRAM RETROGRADE COMPLETED DATE/TIME: 10/23/2017 4:23 pm; 10/23/2017 4:24 pm REASON FOR STUDY: RETROGRADE LEFT SIDE WITH LITHROTRISPY COMPARISON: CT scan 04/05/2016 FLUOROSCOPY TIME: 3 minutes 24 seconds 20 Images saved to PACS LIMITATIONS: None. PROCEDURE: Instrumentation of the left ureter with ureteral stent. FINDINGS: Instrumentation left ureter with ureteral stent. IMPRESSION: Instrumentation left ureter with ureteral stent. COMMENT: PQRS 6045F: Fluoroscopy time of the procedure is documented in the report. TECHNICAL DOCUMENTATION: JOB ID: [id number] [employer]- All Rights Reserved Reading location - IP/workstation name: [email or web address]
[2017-10-23] MEDS: INSULIN LISPRO 100 UNIT/ML 3 ML VIAL SUBCUT PRN (18:47)
[2017-10-23] MEDS: HYDROMORPHONE HCL INJ/PF 2 MG/ML AMPULE IV PRN (21:42)
[2017-10-23] MEDS ORDERED: DOXAZOSIN MESYLATE 4 MG TABLET PO SCH (22:00)
[2017-10-23] MEDS ORDERED: ATORVASTATIN CALCIUM 10 MG TABLET PO SCH (22:00)
[2017-10-23] MEDS ORDERED: DOXAZOSIN MESYLATE 2 MG TABLET PO SCH (22:00)
[2017-10-24] MEDS: INSULIN LISPRO 100 UNIT/ML 3 ML VIAL SUBCUT PRN ×2 (00:29→12:25)
[2017-10-24] MEDS: NORMAL SALINE 1000 ML 1,000 ML IV PRN ×3 (01:33→18:12)
[2017-10-24] MEDS: HYDROMORPHONE HCL INJ/PF 2 MG/ML AMPULE IV PRN (04:06)
[2017-10-24] MEDS: METOCLOPRAMIDE HCL INJ/PF 10 MG/2 ML SDV IV PRN ×2 (04:07→16:00)
[2017-10-24 04:42] LABS: ABSOLUTE LYMPHOCYTES (AUTO) 1.1 10^3/uL (0.5-4.7); ABSOLUTE MONOCYTES (AUTO) 1.3 10^3/uL (0.1-1.4); ABSOLUTE NEUT (AUTO) 9.2 10^3/uL (1.7-8.2); BASOPHILS % (AUTO) 0.3 % (0-2); EOSINOPHILS % (AUTO) 0.1 % (0-6); HEMATOCRIT 40.2 % (37.9-51.0); HEMOGLOBIN 13.6 g/dL (13.5-17.0); LYMPHOCYTES % (AUTO) 9.5 % (13-45); MEAN CORPUSCULAR HEMOGLOBIN 28.1 pg (27.0-33.4); MEAN CORPUSCULAR HGB CONC 33.8 g/dL (32.0-36.0); MEAN CORPUSCULAR VOLUME 83 fl (80-97); MONOCYTES % (AUTO) 10.8 % (3-13); PLATELET COUNT 241 10^3/uL (150-450); RED BLOOD COUNT 4.84 10^6/uL (4.35-5.55); RED CELL DISTRIBUTION WIDTH 14.1 % (11.5-14.0); SEGMENTED NEUTROPHILS % (AUTO) 79.3 % (42-78); TOTAL CELLS COUNTED % (AUTO) 100 %; WHITE BLOOD COUNT 11.6 10^3/uL (4.0-10.5)
[2017-10-24 04:57] LABS: ANION GAP 12 (5-19); BLOOD UREA NITROGEN 25 mg/dL (7-20); CALCIUM 8.3 mg/dL (8.4-10.2); CARBON DIOXIDE 25 mmol/L (22-30); CHLORIDE 103 mmol/L (98-107); GLUCOSE 266 mg/dL (75-110); POTASSIUM 4.4 mmol/L (3.6-5.0); SODIUM 140.1 mmol/L (137-145)
[2017-10-24] MEDS: CEPHALEXIN 500 MG CAPSULE PO SCH ×3 (06:27→18:03)
[2017-10-24] MEDS: HEPARIN SOD (PORCINE) 5,000 UNIT/ML 1 ML SYRINGE SUBCUT SCH ×2 (06:27→14:29)
--- NOTE | 2017-10-24 08:19 | PDOC PROGRESS REPORT ---
Subjective Progress Note for:: 10/24/17 Subjective:: No fever or chills. Hematuria continue. Left flank pain less. No nausea or vomiting. No chest pain or difficulty with breathing. Hyperglycemia is improving. There is persistent leukocytosis with left shift.. Urine culture pending. Reason For Visit: LEFT KIDNEY STONE,LEFT HYDRONEPHROSIS Physical Exam Vital Signs: Temp Pulse Resp BP Pulse Ox 97.6 F 72 17 159/86 H 94 10/24/17 03:15 10/24/17 03:15 10/23/17 22:05 10/24/17 03:15 10/24/17 03:15 Intake & Output 10/23/17 10/24/17 10/25/17 06:59 06:59 06:59 Intake Total 560 6510 Output Total 2900 Balance 560 3610 Weight 142.4 kg 144.8 kg General appearance: PRESENT: no acute distress, morbidly obese Head exam: PRESENT: atraumatic, normocephalic Mouth exam: PRESENT: moist Respiratory exam: PRESENT: clear to auscultation warner Cardiovascular exam: PRESENT: RRR. ABSENT: diastolic murmur, rubs, systolic murmur Vascular exam: ABSENT: pallor GI/Abdominal exam: PRESENT: normal bowel sounds, soft. ABSENT: distended, guarding, mass, organolmegaly, rebound, tenderness Extremities exam: ABSENT: pedal edema Musculoskeletal exam: PRESENT: normal inspection Neurological exam: PRESENT: alert, awake, oriented to person, oriented to place , oriented to time, oriented to situation, CN II-XII grossly intact. ABSENT: motor sensory deficit Psychiatric exam: PRESENT: appropriate affect, normal mood. ABSENT: homicidal ideation, suicidal ideation Skin exam: PRESENT: dry, intact, warm. ABSENT: cyanosis, rash Results Laboratory Results: 10/24/17 04:14 10/24/17 04:14 10/24/17 10/24/17 04:14 04:14 WBC 11.6 H RBC 4.84 Hgb 13.6 Hct 40.2 MCV 83 MCH 28.1 MCHC 33.8 RDW 14.1 H Plt Count 241 Seg Neutrophils % 79.3 H Lymphocytes % 9.5 L Monocytes % 10.8 Eosinophils % 0.1 Basophils % 0.3 Absolute Neutrophils 9.2 H Absolute Lymphocytes 1.1 Absolute Monocytes 1.3 Absolute Eosinophils 0.0 Absolute Basophils 0.0 Sodium 140.1 Potassium 4.4 Chloride 103 Carbon Dioxide 25 Anion Gap 12 BUN 25 H Creatinine 1.23 Est GFR ( Amer) > 60 Est GFR (Non-Af Amer) > 60 Glucose 266 H Calcium 8.3 L Impressions: Fluoroscopy 10/23/17 00:00 IMPRESSION: Instrumentation left ureter with ureteral stent. Retrograde Pyelogram 10/23/17 00:00 IMPRESSION: Instrumentation left ureter with ureteral stent. Assessment & Plan - Diagnosis (1) Ureterolithiasis Is this a current diagnosis for this admission?: Yes Plan: Status post cystoscopy, flexible ureteroscopy, holmium laser stone fragmentation , stone dusting, and placement of left ureteral stent. Monitor hematuria improvement. Follow up on urine culture. Continue oral Keflex coverage. (2) BPH loc w urin obs/LUTS Is this a current diagnosis for this admission?: Yes Plan: Continue current mediation management. (3) Diabetes mellitus Qualifiers: Diabetes mellitus type: type 2 Diabetes mellitus custodial insulin use: without dedicated intermodal truck driver use Diabetes mellitus complication status: with hyperglycemia Qualified Code(s): E11.65 - Type 2 diabetes mellitus with hyperglycemia Is this a current diagnosis for this admission?: Yes Plan: Continue current mediation management. (4) Chronic atrial fibrillation Is this a current diagnosis for this admission?: Yes Plan: Continue current mediation management. (5) Hypertension Qualifiers: Hypertension type: essential hypertension Qualified Code(s): I10 - Essential (primary) hypertension Is this a current diagnosis for this admission?: Yes Plan: Continue current mediation management. (6) HLD (hyperlipidemia) Qualifiers: Hyperlipidemia type: pure hypercholesterolemia Qualified Code(s): E78.00 - Pure hypercholesterolemia, unspecified; E78.0 - Pure hypercholesterolemia Is this a current diagnosis for this admission?: Yes Plan: Continue current mediation management. (7) Seasonal allergic rhinitis Qualifiers: Allergic rhinitis trigger: unspecified Qualified Code(s): J30.2 - Other seasonal allergic rhinitis Is this a current diagnosis for this admission?: Yes Plan: Continue current mediation management. (8) Hypogonadism in male Is this a current diagnosis for this admission?: Yes Plan: Continue current mediation management. (9) Morbid obesity with BMI of 40.0-44.9, adult Is this a current diagnosis for this admission?: Yes Plan: Continue current management. - Time Time Spent with patient: 25-34 minutes Medications reviewed and adjusted accordingly: Yes Anticipated discharge: Home Within: Other - Inpatient Certification Based on my medical assessment, after consideration of the patient's comorbidities, presenting symptoms, or acuity I expect that the services needed warrant INPATIENT care.: Yes I certify that my determination is in accordance with my understanding of Medicare's requirements for reasonable and necessary INPATIENT services [42 CFR 412.3e].: Yes Medical Necessity: Need Close Monitoring Due to Risk of Patient Decompensation, Need For IV Fluids, Need For Continuous Telemetry Monitoring, Risk of Complication if Not Cared For in Hospital Post Hospital Care: D/C Cleaner And Preparer Documentation - Plan Summary Plan Summary: Continue current mediation management. Follow up on urine culture findings.
[2017-10-24] MEDS ORDERED: GLIMEPIRIDE 4 MG TABLET PO SCH (10:00)
[2017-10-24] MEDS ORDERED: MULTIVITAMIN TABLET PO SCH (10:00)
[2017-10-24] MEDS ORDERED: DOFETILIDE 125 MCG CAPSULE PO SCH (10:00)
[2017-10-24] MEDS ORDERED: LOSARTAN POTASSIUM 50 MG TABLET PO SCH (10:00)
[2017-10-24] MEDS ORDERED: (PENDING PHARMACY ID) (Olmesartan Medoxomil [Benicar] 40 MG) PO SCH (10:00)
[2017-10-24] MEDS: DILTIAZEM HCL 120 MG CAP.SR.24H PO SCH (10:51)
[2017-10-24] MEDS: TAMSULOSIN HCL 0.4 MG CAP.SR.24H PO SCH (10:51)
[2017-10-24] MEDS: ISOSORBIDE MONONITRATE 60 MG TAB.ER.24H PO SCH (10:51)
[2017-10-24] MEDS: SPIRONOLACTONE 25 MG TABLET PO SCH (10:52)
[2017-10-24] MEDS: FLUTICASONE NASAL SPRAY 50 MCG/SPRY 120 SPRAY/16 GM NAREB SCH (10:56)
[2017-10-24] MEDS: METFORMIN HCL 850 MG TABLET PO SCH ×2 (10:56→17:59)
[2017-10-24] MEDS: LABETALOL HCL 200 MG TABLET PO SCH ×2 (10:59→18:01)
[2017-10-24 11:08] LABS: APPEARANCE,URINE CLOUDY; BILIRUBIN,URINE NEGATIVE (NEGATIVE); COLOR,URINE YELLOW; GLUCOSE, URINE >=500 mg/dL (NEGATIVE); KETONES,URINE NEGATIVE (NEGATIVE); LEUKOCYTE ESTERASE,URINE SMALL (NEGATIVE); NITRITE,URINE NEGATIVE (NEGATIVE); PROTEIN,URINE 100 mg/dL (NEGATIVE)
[2017-10-24] MEDS ORDERED: CETIRIZINE 5 MG TABLET PO SCH (18:00)
[2017-10-25 00:24] VITALS: BP 123/75
--- NOTE | 2017-10-27 12:00 | PDOC DISCHARGE SUMMARY ---
General - Admit/Disc Date/PCP Admission Date/Primary Care Provider: 10/22/17 22:15 CHARLIERUBEN MALDONADO Discharge Date: 10/24/17 - Discharge Diagnosis (1) Ureterolithiasis Is this a current diagnosis for this admission?: Yes Summary: post cystoscopy and flexible ureteroscopy with laser fragmentation and ureter stent placement. Less hematuria and no left flank pain so far today. (2) BPH loc w urin obs/LUTS Is this a current diagnosis for this admission?: Yes Summary: Continue all preadmission medication management. (3) Diabetes mellitus Is this a current diagnosis for this admission?: Yes Summary: Continue all preadmission medication management. (4) Chronic atrial fibrillation Is this a current diagnosis for this admission?: Yes Summary: Continue all preadmission medication management. Hold restart on Eliquis due to persistent hematuria. (5) Hypertension Is this a current diagnosis for this admission?: Yes Summary: Continue all preadmission medication management. (6) HLD (hyperlipidemia) Is this a current diagnosis for this admission?: Yes Summary: Continue all preadmission medication management. (7) Seasonal allergic rhinitis Is this a current diagnosis for this admission?: Yes Summary: Continue all preadmission medication management. (8) Hypogonadism in male Is this a current diagnosis for this admission?: Yes Summary: Continue all preadmission medication management. (9) Morbid obesity with BMI of 40.0-44.9, adult Is this a current diagnosis for this admission?: Yes Summary: Continue all preadmission medication management. - Additional Information Resuscitation Status: Full Code Prescriptions: Metoclopramide HCl [Metoclopramide HCl Odt] 5 mg PO QIDP PRN #20 tab.rapdis PRN Reason: For Nausea/Vomiting Home Medications: Glimepiride [Amaryl 4 mg Tablet] 4 mg PO DAILY #30 tablet 06/26/14 Isosorbide Mononitrate [Imdur 60 mg Tablet.er] 120 mg PO DAILY #30 tab.er.24h Doxazosin Mesylate 4 mg PO QHS 06/09/15 Metformin HCl [Glucophage 850 mg Tablet] 850 mg PO BID 06/09/15 Olmesartan Medoxomil [Benicar] 40 mg PO DAILY 06/09/15 Apixaban [Eliquis 5 mg Tablet] 5 mg PO Q12 01/04/17 Diltiazem HCl [Diltiazem 24Hr ER] 360 mg PO DAILY 01/04/17 Dofetilide 250 mcg PO Q12 01/04/17 Fluticasone Propionate [Flonase Nasal [place] 50 Mcg/[place] 16 gm] 1 spray NAREB DAILY 01/04/17 Labetalol HCl [Trandate] 150 mg PO Q12 01/04/17 Levocetirizine Dihydrochloride [Xyzal] 5 mg PO QPM 01/04/17 Spironolactone 25 mg PO DAILY 01/04/17 Ascorbic Acid [Vitamin C 500 mg Tablet] 1,000 mg PO DAILY 10/23/17 Atorvastatin Calcium [Lipitor 10 mg Tablet] 10 mg PO QHS 10/23/17 Cephalexin Monohydrate [Keflex 500 mg Capsule] 500 mg PO Q6 MDD STARTED 10/22 Multivitamin [Tab-A-Priyank (Multiple Vitamin) Tablet] 1 tab PO DAILY 10/23/17 Promethazine HCl [Phenergan 25 mg Tablet] 25 mg PO Q6HP PRN 10/23/17 Tamsulosin HCl [Flomax 0.4 mg Cap.sr] 0.4 mg PO QPM 10/23/17 Metoclopramide HCl [Metoclopramide HCl Odt] 5 mg PO QIDP PRN #20 tab.rapdis 07/09 History of Present Illness Patient complains of: Left flank pain History of Present Illness: LEATHA CAPONE is a 62 year old male known to my practice who presented to the ED with compliant of left flank pain with nausea and vomiting as well as dry heaving. Patient has his of left side ureterolithiasis and noticed episode of hematuria about 3 days prior to presentation to the ED. He denied any fever or chills. His initial evaluation in the ED did confirm left ureterolithiasis. He was managed with IV Diluadid and any anti emetic therapy with some pain nad symptom relief. He was seen in consultation by urologist with plan for possible ureteroscopy and laser blasting of the renal stone. His morbidities include chronic Atrial Fibrillation, Hypertension, Hyperlipidemia, BPH with LUTS, Diabetes mellitus type 2, seasonal Allergy, Morbid Obesity, and Hypogonadisim. He will be admitted to telemetry bed for further evaluation and management. Hospital Course Hospital Course: Patient was admitted to Telemetry bed and seen in consultation by urologist, Dr. Elliott. He had cystoscopy with flexible ureteroscopy with laser fragmentation of left UPJ renal calculi. Post operatively pain was adequately controlled on IV Dilaudid and eventually weaned off. His nausea and vomiting was managed with IV Reglan and eventually transition to oral. He remain pain free today prior to his discharge. No fever or chills. Hematuria did persist but lighting up. Patient will continue on oral Keflex coverage. We will follow up on is urine culture findings but so far no growth to date. He will be discharge home today and follow up in the office as instructed upon discharge. Physical Exam Vital Signs: Temp Pulse Resp BP Pulse Ox 98.6 F 81 21 H 132/62 H 97 10/24/17 16:05 10/24/17 16:05 10/24/17 16:05 10/24/17 16:05 10/24/17 16:05 Intake & Output 10/23/17 10/24/17 10/25/17 06:59 06:59 06:59 Intake Total 560 6510 852 Output Total 2900 1250 Balance 560 3610 -398 Weight 142.4 kg 144.8 kg Physical Exam: General appearance: PRESENT: no acute distress, morbidly obese Head exam: PRESENT: atraumatic, normocephalic Mouth exam: PRESENT: moist Respiratory exam: PRESENT: clear to auscultation warner Cardiovascular exam: PRESENT: RRR. ABSENT: diastolic murmur, rubs, systolic murmur Vascular exam: ABSENT: pallor GI/Abdominal exam: PRESENT: normal bowel sounds, soft. ABSENT: distended, guarding, mass, organolmegaly, rebound, tenderness Extremities exam: ABSENT: pedal edema Musculoskeletal exam: PRESENT: normal inspection Neurological exam: PRESENT: alert, awake, oriented to person, oriented to place , oriented to time, oriented to situation, CN II-XII grossly intact. ABSENT: motor sensory deficit Psychiatric exam: PRESENT: appropriate affect, normal mood. ABSENT: homicidal ideation, suicidal ideation Skin exam: PRESENT: dry, intact, warm. ABSENT: cyanosis, rash Results Laboratory Results: 10/24/17 04:14 10/24/17 04:14 10/24/17 10/24/17 10/24/17 04:14 04:14 10:44 WBC 11.6 H RBC 4.84 Hgb 13.6 Hct 40.2 MCV 83 MCH 28.1 MCHC 33.8 RDW 14.1 H Plt Count 241 Seg Neutrophils % 79.3 H Lymphocytes % 9.5 L Monocytes % 10.8 Eosinophils % 0.1 Basophils % 0.3 Absolute Neutrophils 9.2 H Absolute Lymphocytes 1.1 Absolute Monocytes 1.3 Absolute Eosinophils 0.0 Absolute Basophils 0.0 Sodium 140.1 Potassium 4.4 Chloride 103 Carbon Dioxide 25 Anion Gap 12 BUN 25 H Creatinine 1.23 Est GFR ( Amer) > 60 Est GFR (Non-Af Amer) > 60 Glucose 266 H Calcium 8.3 L Urine Color YELLOW Urine Appearance CLOUDY Urine pH 5.0 Ur Specific [place] 1.020 Urine Protein 100 H Urine Glucose (UA) >=500 H Urine Ketones NEGATIVE Urine Blood LARGE H Urine Nitrite NEGATIVE Ur Leukocyte Esterase SMALL H Urine WBC (Auto) 56 Urine RBC (Auto) >182 Impressions: Fluoroscopy 10/23/17 00:00 IMPRESSION: Instrumentation left ureter with ureteral stent. Retrograde Pyelogram 10/23/17 00:00 IMPRESSION: Instrumentation left ureter with ureteral stent. Qualifiers - * PATIENT BEING DISCHARGED WITH ANY OF THE FOLLOWING DIAGNOSIS: No Plan Discharge Plan: D/C home today. Follow up in the office as instructed upon discharge.
[2017-11-02 12:40] LABS: COLOR Tan (.); URIC ACID 100 % (.); WEIGHT 9.3 mg (.)
[2017-11-02 14:00] LABS: STONE ANALYSIS COMMENT 2 Note: (.)
== END 2017-10-24 21:00 | disposition home or self-care (01) | DRG 660 ==
LOC: ER 18:31 → EH 22:15 → 5 10-23 03:36
PROVIDERS: ADMIT Internal Medicine Geriatric Medicine; ATTEND Internal Medicine Geriatric Medicine
PROC: 0TC78ZZ Extirpation of Matter from Left Ureter, Via Natural or Artificial Opening Endoscopic (ICD-10-PCS; 2017-10-23)
PROC: 0T778DZ Dilation of Left Ureter with Intraluminal Device, Via Natural or Artificial Opening Endoscopic (ICD-10-PCS; 2017-10-23)
PROC: 0TC18ZZ Extirpation of Matter from Left Kidney, Via Natural or Artificial Opening Endoscopic (ICD-10-PCS; principal; 2017-10-23 13:30)
DX: N20.2 Calculus of kidney with calculus of ureter (principal); Z68.41 Body mass index [BMI] 40.0-44.9, adult; I10 Essential (primary) hypertension; N40.1 Benign prostatic hyperplasia with lower urinary tract symptoms; E29.1 Testicular hypofunction; E66.01 Morbid (severe) obesity due to excess calories; Z79.84 Long term (current) use of oral hypoglycemic drugs; E11.65 Type 2 diabetes mellitus with hyperglycemia; I48.2 Chronic atrial fibrillation; J30.2 Other seasonal allergic rhinitis; Z79.899 Other long term (current) drug therapy
CPT/HCPCS: 36415; 74420; 80048; 80053; 81001; 82370; 82962; 85025; 87086; 918; 96361; 96374; 96375; 99285; C1758; C1769; C2617; J0330; J0696; J1100; J1170; J1200; J1644; J1815; J1885; J2250; J2270; J2704; J2765; J3010; J3490; J7030

== ENCOUNTER → 2017-11-03 | Outpatient (CLI) | payer BC ==
--- NOTE | 2017-11-03 10:23 | RADIOLOGY REPORT (SQ) ---
EXAM DESCRIPTION: KUB/ABDOMEN (SINGLE VIEW) COMPLETED DATE/TIME: 11/03/2017 10:05 am REASON FOR STUDY: ENCOUNTER FOR SURGICAL AFTCR FOLLOWING SURGERY ON THE SYS Z48.816 ENCOUNTER FO R SURGICAL AFTCR FOLLOWING SURGERY ON TH COMPARISON: None. NUMBER OF VIEWS: One view. TECHNIQUE: Supine radiographic image of the abdomen acquired. LIMITATIONS: None. FINDINGS: BOWEL GAS PATTERN: Normal bowel gas pattern. No dilated loops. CALCIFICATIONS: No suspicious calcifications. SOFT TISSUES: No gross mass or suggestion of organomegaly. HARDWARE: Double-J stent is identified in position on the left. BONES: No acute fracture. No worrisome bone lesions. OTHER: No other significant finding. IMPRESSION: NO RADIOGRAPHIC EVIDENCE FOR ACUTE ABDOMINAL DISEASE. TECHNICAL DOCUMENTATION: JOB ID: [id number] [employer]- All Rights Reserved Reading location - IP/workstation name: [email or web address]
== END ==
LOC: RAD 09:44
PROVIDERS: ATTEND Internal Medicine Geriatric Medicine
DX: Z48.816 Encounter for surgical aftercare following surgery on the genitourinary system (principal)
CPT/HCPCS: 74018

== ENCOUNTER 2017-11-08 00:23 | Emergency (ER) | payer BC ==
[2017-11-08] MEDS ORDERED: METOCLOPRAMIDE HCL INJ/PF 10 MG/2 ML SDV IV ONE (01:01)
[2017-11-08] MEDS ORDERED: FENTANYL CITRATE INJ/PF 100 MCG/2 ML AMPUL IV ONE (01:01)
[2017-11-08] MEDS ORDERED: NORMAL SALINE 1000 ML 1,000 ML IV ONE (01:01)
--- NOTE | 2017-11-08 01:04 | ER Document Report ---
ED GI/ - General Chief Complaint: Back Pain Stated Complaint: BACK AND RIGHT SIDE PAIN Time Seen by Provider: 11/08/17 00:57 Notes: Patient is a 62-year-old male comes emergency department for chief complaint of sudden onset right mid to lower abdominal pain with radiation around to his right flank, he has vomited 4 times, he does have a history of kidney stones, he actually had a left-sided stent removed earlier today after successfully passing a 13 cm kidney stone from the left kidney. He denies fever or chills. TRAVEL OUTSIDE OF THE [place] IN LAST 30 DAYS: No - Related Data Allergies/Adverse Reactions: bismuth subsalicylate [From Pepto-Bismol] Allergy (Verified 10/22/17 19:31) Past Medical History - General Information source: Patient, Relative - Social History Smoking Status: Never Smoker Frequency of alcohol use: None Drug Abuse: None Lives with: Family Family History: Reviewed & Not Pertinent - Past Medical History Cardiac Medical History: Reports: Hx Atrial Fibrillation - ablation, Hx Hypercholesterolemia, Hx Hypertension Neurological Medical History: Denies: Hx Seizures Endocrine Medical History: Reports: Hx Diabetes Mellitus Type 2 Renal/ Medical History: Reports: Hx Kidney Stones. Denies: Hx Peritoneal Dialysis GI Medical History: Reports: Hx Diverticulitis Past Surgical History: Reports: Hx Cardiac Surgery - ablation, Hx Tonsillectomy - Immunizations Hx Diphtheria, Pertussis, Tetanus Vaccination: No Hx Pneumococcal Vaccination: 04/24/15 Review of Systems - Review of Systems Constitutional: No symptoms reported EENT: No symptoms reported Cardiovascular: No symptoms reported Respiratory: No symptoms reported Gastrointestinal: See HPI Genitourinary: See HPI Male Genitourinary: No symptoms reported Musculoskeletal: No symptoms reported Skin: No symptoms reported Hematologic/Lymphatic: No symptoms reported Neurological/Psychological: No symptoms reported Physical Exam - Vital signs Vitals: Resp 20 11/08/17 01:08 - Notes Notes: GENERAL: Alert, interacts well. Patient appears to be in a lot of pain, flushed , having trouble holding still HEAD: Normocephalic, atraumatic. EYES: Pupils equal, round, and reactive to light. Extraocular movements intact. ENT: Oral mucosa moist, tongue midline. NECK: Full range of motion. Supple. Trachea midline. LUNGS: Clear to auscultation bilaterally, no wheezes, rales, or rhonchi. No respiratory distress. HEART: Regular rate and rhythm. No murmur ABDOMEN: Tender in the mid right to lower right abdominal areas, remaining abdomen is benign, no rigidity or rebound tenderness. EXTREMITIES: Moves all 4 extremities spontaneously. No edema, normal radial and dorsalis pedis pulses bilaterally. No cyanosis. BACK: no cervical, thoracic, lumbar midline tenderness. No saddle anesthesia, normal distal neurovascular exam. NEUROLOGICAL: Alert and oriented x3. Normal speech. [cranial nerves II through XII grossly intact]. PSYCH: Anxious SKIN: Warm, dry, normal turgor. No rashes or lesions noted. Course - Re-evaluation Re-evalutation: Patient appears to be in a lot of pain, has right abdominal tenderness in the mid to lower abdomen, no overt CVA tenderness. He has been vomiting. Pain started acutely. No guarding or rigidity suggesting perforation. Patient still in a lot of pain after medications. CBC, chemistry unremarkable. Urine is still pending. Discussed with patient. Initially ultrasound was ordered but now because of his refractory persistent pain decision was made to perform CAT scan again after discussion. Unfortunately ultrasound was not canceled in time and he ended up having both on accident. CAT scan showing recently passed right-sided stone, current left- sided ureterolithiasis, nephrolithiasis. No other acute findings. Discussed this in detail with patient. He requests a copy of his CD and report. Urinalysis shows blood but not infection. Patient is actually finally asymptomatic. Patient will be provided with medications, he has urology follow- up already scheduled, discussed return precautions, patient and state understanding and agreement. - Vital Signs Vital signs: Temp Pulse Resp BP Pulse Ox 16 143/77 H 94 11/08/17 05:01 11/08/17 05:01 11/08/17 05:01 - Laboratory Result Diagrams: 11/08/17 01:24 11/08/17 01:24 Laboratory results interpreted by me: 11/08/17 11/08/17 11/08/17 01:24 01:24 03:33 RDW 14.2 H BUN 25 H Glucose 337 H Direct Bilirubin 0.5 H Urine Glucose (UA) >=500 H Urine Blood LARGE H Discharge - Discharge Clinical Impression: Flank pain, Ureterolithiasis Abdominal pain Qualifiers: Abdominal location: lower abdomen, unspecified Qualified Code(s): R10.30 - Lower abdominal pain, unspecified Condition: Stable Disposition: HOME, SELF-CARE Additional Instructions: Your evaluation is consistent with a recently passed stone probably from the right side, he also have additional stones in your kidneys and one in your left ureter as we discussed. Please follow-up with urology for additional management , bring the your CAT scan and report copies. Take pain medication and nausea medication as prescribed if needed. Return if you worsen including returned or severe pain, vomiting, fever of 100.4 or greater, or any other concerning symptoms. Prescriptions: Morphine Sulfate [Morphine Ir 15 Mg Tablet] 15 mg PO Q4HP PRN #20 tablet PRN Reason: Ondansetron [Zofran Odt 4 mg Tablet] 1 - 2 tab PO Q4H PRN #20 tab.rapdis PRN Reason: For Nausea/Vomiting Promethazine HCl [Phenergan 25 mg Tablet] 1 - 2 tab PO Q6H PRN #20 tablet PRN Reason: Referrals: CHARLIE MALDONADO MD [Primary Care Provider] - Follow up as needed
[2017-11-08] MEDS ORDERED: HYDROMORPHONE HCL INJ/PF 2 MG/ML AMPULE IV ONE ×2 (01:41→02:27)
[2017-11-08 01:48] LABS: ALANINE AMINOTRANSFERASE 50 U/L (21-72); ALBUMIN 4.3 g/dL (3.5-5.0); ALKALINE PHOSPHATASE 89 U/L (38-126); ANION GAP 17 (5-19); ASPARTATE AMINO TRANSFERASE 57 U/L (17-59); BILIRUBIN,DIRECT 0.5 mg/dL (0.0-0.4); BILIRUBIN,TOTAL 0.9 mg/dL (0.2-1.3); BLOOD UREA NITROGEN 25 mg/dL (7-20); CALCIUM 9.8 mg/dL (8.4-10.2); CARBON DIOXIDE 22 mmol/L (22-30); CHLORIDE 102 mmol/L (98-107); GLUCOSE 337 mg/dL (75-110); LIPASE 154.3 U/L (23-300); SODIUM 141.1 mmol/L (137-145); TOTAL PROTEIN 7.5 g/dL (6.3-8.2)
[2017-11-08 01:55] LABS: ABSOLUTE EOSINOPHILS # (AUTO) 0.1 10^3/uL (0.0-0.6); ABSOLUTE LYMPHOCYTES (AUTO) 1.6 10^3/uL (0.5-4.7); ABSOLUTE MONOCYTES (AUTO) 0.7 10^3/uL (0.1-1.4); ABSOLUTE NEUT (AUTO) 6.9 10^3/uL (1.7-8.2); BASOPHILS % (AUTO) 0.3 % (0-2); EOSINOPHILS % (AUTO) 1.3 % (0-6); HEMATOCRIT 42.8 % (37.9-51.0); HEMOGLOBIN 14.2 g/dL (13.5-17.0); LYMPHOCYTES % (AUTO) 16.8 % (13-45); MEAN CORPUSCULAR HEMOGLOBIN 28.5 pg (27.0-33.4); MEAN CORPUSCULAR HGB CONC 33.3 g/dL (32.0-36.0); MEAN CORPUSCULAR VOLUME 86 fl (80-97); MONOCYTES % (AUTO) 7.9 % (3-13); PLATELET COUNT 270 10^3/uL (150-450); RED CELL DISTRIBUTION WIDTH 14.2 % (11.5-14.0); SEGMENTED NEUTROPHILS % (AUTO) 73.7 % (42-78); TOTAL CELLS COUNTED % (AUTO) 100 %; WHITE BLOOD COUNT 9.4 10^3/uL (4.0-10.5)
--- NOTE | 2017-11-08 03:35 | RADIOLOGY REPORT (SQ) ---
CT abdomen and pelvis without contrast on 11/08/2017at 2:54 AM CLINICAL INDICATION: Severe right-sided abdominal pain, back pain, status post stent removal TECHNIQUE: Multiple axial images are obtained throughout the abdomen and pelvis without the administration of contrast. This exam was performed according to our departmental dose-optimization program, which includes automated exposure control, adjustment of the mA and/or kV according to patient size and/or use of iterative reconstruction technique. Total DLP is 1781.41 mGy*cm. COMPARISON: 10/21/2017 FINDINGS: Abdomen: There is mild elevation of the right hemidiaphragm. The lung bases are clear. There is fatty infiltration of the liver. There is new mild right hydronephrosis and hydroureter to the level of the bladder without ureteral stone visualized. There is new right perinephric stranding. The findings could be related to recently passed right-sided stone, tiny nonvisualized stone or right-sided infection. Please correlate with urinalysis. There is a very small nonobstructing right renal stone again noted. There are nonobstructing stones in the lower pole of the left kidney with the largest measuring 8 mm. There has been improvement in left hydronephrosis with very mild left hydronephrosis and hydroureter remaining with a small residual 2-3 mm stone in the left mid ureter at the pelvic inlet. The unenhanced solid abdominal organs are otherwise unremarkable. There is no abdominal adenopathy. Mild vascular calcifications are noted. There is no free fluid or free air within the abdomen. The abdominal portion of the GI tract is unremarkable. Pelvis: Small amount of air is noted in the bladder consistent with the recent instrumentation. There is no free fluid in the pelvis. There is no pelvic adenopathy. The pelvic portion of the GI tract including the appendix is unremarkable. There is a tiny calcification in the posterior midline bladder consistent with a tiny bladder stone. Degenerative changes are noted in the spine. IMPRESSION: 1. New mild right hydronephrosis and hydroureter to the level of the bladder without identifiable ureteral stone. There is a tiny calcification in the posterior bladder that may represent recently passed right-sided stone. Cannot exclude right-sided renal infection and please correlate with urinalysis. 2. Left greater than right nephrolithiasis. 3. Continued small 2-3 mm left mid ureteral stone. 4. Fatty infiltration of the liver.
--- NOTE | 2017-11-08 04:02 | RADIOLOGY REPORT (SQ) ---
Ultrasound retroperitoneum limited on 11/08/2017 at 3:10 AM CLINICAL INDICATION: Right-sided back pain COMPARISON: CT from 11/08/2017 FINDINGS: Multiple sonographic images are obtained throughout the kidneys and bladder, both transverse and sagittal images are obtained. The right kidney measures approximately 14.1 cm in greatest [id number] length. Left kidney measures approximately 13.8 cm in greatest [id number] length. Stone in the lower pole of the left kidney is visualized as was noted on CT. The patient's known mild bilateral hydronephrosis is better visualized on CT. Left ureteral jet is visualized. Right ureteral jet is not visualized. No bladder wall thickening or intraluminal filling defect is noted. IMPRESSION: 1. Nonvisualization of the patient's right ureteral jet. 2. Left nephrolithiasis visualized. 3. The patient's known mild bilateral hydronephrosis is better visualized on the recent CT.
[2017-11-08 04:51] LABS: APPEARANCE,URINE CLEAR; BILIRUBIN,URINE NEGATIVE (NEGATIVE); COLOR,URINE STRAW; GLUCOSE, URINE >=500 mg/dL (NEGATIVE); KETONES,URINE NEGATIVE (NEGATIVE); LEUKOCYTE ESTERASE,URINE NEGATIVE (NEGATIVE); NITRITE,URINE NEGATIVE (NEGATIVE); PROTEIN,URINE NEGATIVE (NEGATIVE); URINE SPECIFIC GRAVITY 1.012; UROBILINOGEN,URINE NEGATIVE mg/dL (<2.0)
[2017-11-08] MEDS ORDERED: ONDANSETRON ODT 4 MG TAB (6 TAB/ER DISP) PO PRN (05:07)
[2017-11-08] MEDS ORDERED: HYDROCODONE/ACETAMINOPHEN 5-325 MG (6 TAB/ER DISP) PO PRN (05:07)
[2017-11-08 05:20] VITALS: BP 143/77
[2017-11-08] MEDS ORDERED: MORPHINE SULFATE IR 15 MG TABLET PO ONE (05:54)
[2017-11-08] MEDS ORDERED: PROMETHAZINE HCL 25 MG TABLET PO ONE (05:54)
== END 2017-11-08 05:55 | disposition home or self-care (01) ==
LOC: ER 00:23
DX: N20.1 Calculus of ureter (principal); R10.30 Lower abdominal pain, unspecified; M54.9 Dorsalgia, unspecified; R11.10 Vomiting, unspecified; I48.91 Unspecified atrial fibrillation; E78.00 Pure hypercholesterolemia, unspecified; I10 Essential (primary) hypertension; E11.9 Type 2 diabetes mellitus without complications; Z87.442 Personal history of urinary calculi
CPT/HCPCS: 96376; 99284; 96361; 96374; 96375; 36415; 83690; 85025; 80053; 81001; 76775; 74176; J3010; J2765; J1170; J7030

== ENCOUNTER 2017-11-14 10:40 | Inpatient (IN) | payer BC ==
[2017-11-14] MEDS ORDERED: NORMAL SALINE 1000 ML 1,000 ML IV ONE (11:17)
[2017-11-14] MEDS ORDERED: ONDANSETRON HCL INJ/PF 4 MG/2 ML SDV IV ONE (11:18)
--- NOTE | 2017-11-14 11:23 | ER Document Report ---
ED Medical Screen (RME) - General Chief Complaint: Flank Pain Stated Complaint: NAUSEA, SIDE PAIN Time Seen by Provider: 11/14/17 11:16 Notes: Patient is complaining of bilateral lower tunnel pains for the past few weeks. He was admitted to this hospital with a left-sided stone and had a stent placed on the left side and was discharged on October 24. Stent was removed on November 07. Began having pain on the right side and was found to have a stone in the right ureter on 07 November. Saw urologist , this morning and he was referred here for further evaluation. Patient's primary complaint at this time is extreme nausea and inability to keep any fluids down or take any N. That has been very bad for the past 2 days, since Monday morning. Having normal bowel movements. Not having any fever but is having some sweats. PMH: NIDDM, hypertension, high cholesterol, history of atrial fibrillation with ablation therapy. TRAVEL OUTSIDE OF THE [place] IN LAST 30 DAYS: No - Related Data Allergies/Adverse Reactions: bismuth subsalicylate [From Pepto-Bismol] Allergy (Verified 11/14/17 11:03) Past Medical History - Social History Chew tobacco use (# tins/day): No Frequency of alcohol use: None Drug Abuse: None - Past Medical History Cardiac Medical History: Reports: Hx Atrial Fibrillation - ablation, Hx Hypercholesterolemia, Hx Hypertension Neurological Medical History: Denies: Hx Seizures Endocrine Medical History: Reports: Hx Diabetes Mellitus Type 2 Renal/ Medical History: Reports: Hx Kidney Stones. Denies: Hx Peritoneal Dialysis GI Medical History: Reports: Hx Diverticulitis Past Surgical History: Reports: Hx Cardiac Surgery - ablation, Hx Tonsillectomy - Immunizations Hx Diphtheria, Pertussis, Tetanus Vaccination: No History of Influenza Vaccine for 01/2017 - 06/2017 Season: Yes Physical Exam - Vital signs Vitals: Temp Pulse Resp BP Pulse Ox 98.0 F 88 18 119/74 97 11/14/17 10:51 11/14/17 10:51 11/14/17 10:51 11/14/17 10:51 11/14/17 10:51 Course - Vital Signs Vital signs: Temp Pulse Resp BP Pulse Ox 98.0 F 88 18 119/74 97 11/14/17 10:51 11/14/17 10:51 11/14/17 10:51 11/14/17 10:51 11/14/17 10:51 Doctor's Discharge - Discharge Referrals: KAYLENE URBAN MD [Primary Care Provider] - Follow up as needed
[2017-11-14] MEDS ORDERED: METOCLOPRAMIDE HCL INJ/PF 10 MG/2 ML SDV IV ONE (11:43)
[2017-11-14] MEDS ORDERED: DIPHENHYDRAMINE HCL 50 MG/ML VIAL IV ONE (11:44)
[2017-11-14 11:57] LABS: ABSOLUTE BASOPHILS # (AUTO) 0.1 10^3/uL (0.0-0.2); ABSOLUTE EOSINOPHILS # (AUTO) 0.2 10^3/uL (0.0-0.6); ABSOLUTE LYMPHOCYTES (AUTO) 2.4 10^3/uL (0.5-4.7); ABSOLUTE MONOCYTES (AUTO) 1.4 10^3/uL (0.1-1.4); ABSOLUTE NEUT (AUTO) 8.4 10^3/uL (1.7-8.2); BASOPHILS % (AUTO) 0.4 % (0-2); EOSINOPHILS % (AUTO) 1.3 % (0-6); HEMATOCRIT 44.5 % (37.9-51.0); HEMOGLOBIN 15.1 g/dL (13.5-17.0); LYMPHOCYTES % (AUTO) 19.1 % (13-45); MEAN CORPUSCULAR HEMOGLOBIN 28.4 pg (27.0-33.4); MEAN CORPUSCULAR VOLUME 84 fl (80-97); MONOCYTES % (AUTO) 11.6 % (3-13); PLATELET COUNT 313 10^3/uL (150-450); RED BLOOD COUNT 5.32 10^6/uL (4.35-5.55); RED CELL DISTRIBUTION WIDTH 13.9 % (11.5-14.0); SEGMENTED NEUTROPHILS % (AUTO) 67.6 % (42-78); TOTAL CELLS COUNTED % (AUTO) 100 %; WHITE BLOOD COUNT 12.4 10^3/uL (4.0-10.5)
[2017-11-14 12:16] LABS: ALANINE AMINOTRANSFERASE 51 U/L (21-72); ALBUMIN 4.3 g/dL (3.5-5.0); ALKALINE PHOSPHATASE 96 U/L (38-126); ANION GAP 15 (5-19); ASPARTATE AMINO TRANSFERASE 43 U/L (17-59); BILIRUBIN,DIRECT 0.4 mg/dL (0.0-0.4); BILIRUBIN,TOTAL 1.6 mg/dL (0.2-1.3); BLOOD UREA NITROGEN 25 mg/dL (7-20); CALCIUM 9.2 mg/dL (8.4-10.2); CARBON DIOXIDE 24 mmol/L (22-30); CHLORIDE 97 mmol/L (98-107); GLUCOSE 209 mg/dL (75-110); POTASSIUM 4.9 mmol/L (3.6-5.0); SODIUM 135.6 mmol/L (137-145); TOTAL PROTEIN 7.5 g/dL (6.3-8.2)
--- NOTE | 2017-11-14 12:36 | RADIOLOGY REPORT (SQ) ---
EXAM DESCRIPTION: CT LTD RENAL STONE PROTOCOL ON COMPLETED DATE/TIME: 11/14/2017 12:10 pm REASON FOR STUDY: History of stones on both sides in past couple wks COMPARISON: Abdominal CT scan dated 11/08/2017 TECHNIQUE: CT scan of the abdomen and pelvis performed without intravenous or oral contrast. Images reviewed with lung, soft tissue, and bone windows. Reconstructed coronal and sagittal MPR images revi ewed. All images stored on PACS. All CT scanners at this facility use dose modulation, iterative reconstruction, and/or weight based d osing when appropriate to reduce radiation dose to as low as reasonably achievable (ALARA). [facility]: Dose Right [facility]: CareDose [facility]: Dose Right [facility]: Teradose 4D [facility]: [email or web address] RADIATION DOSE: mGy. LIMITATIONS: None. FINDINGS: LOWER CHEST: No significant findings. No nodules or infiltrates. NON-CONTRASTED LIVER, SPLEEN, ADRENALS: Evaluation limited by lack of IV contrast. No identified sign ificant masses. Again there is fatty infiltration of the liver. PANCREAS: No masses. No peripancreatic inflammatory changes. GALLBLADDER: No identified stones by CT criteria. There is relative increased density in the gallbla dder lumen which I cannot exclude is biliary sludge. No inflammatory changes to suggest cholecystiti s. RIGHT KIDNEY AND URETER: No suspicious masses. Assessment limited by lack of IV contrast. Tiny nono bstructing renal calculus is identified. No ureteric calculi are identified. No hydronephrosis or hydroureter. LEFT KIDNEY AND URETER: No suspicious masses. Assessment limited by lack of IV contrast. Nonobstruc ting renal calculi are again identified. An obstructing 6.9 mm in diameter calculus is identified in the proximal left ureter best seen on image number 41. There appears to be a 2nd calculus just supe rior to the obstructing calculus in the proximal left ureter. There is hydronephrosis of the left k idney and fullness of the left ureter to the level of the obstructing calculus. AORTA AND RETROPERITONEUM: No aneurysm. No retroperitoneal masses or adenopathy. BOWEL AND PERITONEAL CAVITY: No obvious masses or inflammatory changes. No free fluid. APPENDIX: Normal. PELVIS, BLADDER, AND ABDOMINAL WALL:No abnormal masses. No free fluid. Bladder normal. BONES: No significant findings. OTHER: No other significant finding. IMPRESSION: Obstructing 6.9 mm in diameter calculus in the proximal left ureter. There appears to b e a 2nd calculus just superior to the obstructing calculus in the proximal left ureter. Bilateral no nobstructing renal calculi. Other findings as noted above. COMMENT: Quality ID # [id number]: Final reports with documentation of one or more dose reduction techniques (e.g., Automated exposure control, adjustment of the mA and/or kV according to patient size, use of iterative reconstruction technique) TECHNICAL DOCUMENTATION: JOB ID: [id number] [employer]- All Rights Reserved Reading location - IP/workstation name: [email or web address]
--- NOTE | 2017-11-14 12:53 | ER Document Report ---
ED GI/ - General Chief Complaint: Flank Pain Stated Complaint: NAUSEA, SIDE PAIN Time Seen by Provider: 11/14/17 11:16 Information source: Patient Notes: Patient is a 62-year-old male with past medical history as recorded with multiple episodes of kidney stones in the past. Patient had lithotripsy performed on October 23 with a stent placed on the left side. Stent was removed on the . Patient started to have some more abdominal pain more on the right side and was diagnosed with a right-sided kidney stone over the last week. Monday morning the patient started to have pain again in the left flank radiating to the left abdomen with nausea without vomiting. He denies any fevers, diarrhea, or dysuria. Patient went to see the urologist today, Dr. Layton , who sent the patient for repeat imaging as well as for nausea control. Patient on examination denies any pain or nausea at this time. Patient has urinated twice without difficulty here in the emergency department. TRAVEL OUTSIDE OF THE [place] IN LAST 30 DAYS: No - HPI Patient complains to provider of: Flank pain Onset: Other - See above Timing/Duration: Gradual Quality of pain: No pain Severity at maximum: Moderate Severity in ED: None Pain Level: 3 Location: Left flank Associated symptoms: Other - See above Exacerbated by: Denies Relieved by: Denies Similar symptoms previously: Yes Recently seen / treated by doctor: Yes - Related Data Allergies/Adverse Reactions: bismuth subsalicylate [From Pepto-Bismol] Allergy (Verified 11/14/17 11:03) Past Medical History - General Information source: Patient - Social History Smoking Status: Never Smoker Cigarette use (# per day): No Chew tobacco use (# tins/day): No Smoking Education Provided: No Frequency of alcohol use: None Drug Abuse: None Family History: Reviewed & Not Pertinent Patient has suicidal ideation: No Patient has homicidal ideation: No - Past Medical History Cardiac Medical History: Reports: Hx Atrial Fibrillation - ablation, Hx Hypercholesterolemia, Hx Hypertension Neurological Medical History: Denies: Hx Seizures Endocrine Medical History: Reports: Hx Diabetes Mellitus Type 2 Renal/ Medical History: Reports: Hx Kidney Stones. Denies: Hx Peritoneal Dialysis GI Medical History: Reports: Hx Diverticulitis Past Surgical History: Reports: Hx Cardiac Surgery - ablation, Hx Tonsillectomy - Immunizations Hx Diphtheria, Pertussis, Tetanus Vaccination: No Hx Pneumococcal Vaccination: 04/24/15 Review of Systems - Review of Systems Constitutional: denies: Fever EENT: denies: Eye discharge, Nose discharge Cardiovascular: denies: Chest pain, Palpitations Respiratory: denies: Short of breath Gastrointestinal: denies: Vomiting Genitourinary: denies: Dysuria Musculoskeletal: denies: Leg swelling Skin: Other - no hives. denies: Rash Neurological/Psychological: Other - no slurred speech -: Yes All other systems reviewed and negative Physical Exam - Vital signs Vitals: Temp Pulse Resp BP Pulse Ox 98.0 F 88 18 119/74 97 11/14/17 10:51 11/14/17 10:51 11/14/17 10:51 11/14/17 10:51 11/14/17 10:51 Notes: Reviewed vital signs and nursing note as charted by RN. CONSTITUTIONAL: Alert and oriented and responds appropriately to questions. Well -appearing; well-nourished HEAD: Normocephalic; atraumatic CARD: Regular rate and rhythm; no murmurs, no clicks, no rubs, no gallops; symmetric distal pulses RESP: Normal chest excursion without splinting or tachypnea; breath sounds clear and equal bilaterally ABD/GI: Normal bowel sounds; elevated BMI; soft, non-tender to deep palpation of all 4 quadrants of the abdomen, no rebound, no guarding; no palpable organomegaly or masses BACK: The back appears normal and is non-tender to palpation, there is no CVA tenderness on the current examination EXT: Normal ROM in all joints; non-tender to palpation; no cyanosis, no effusions, no edema SKIN: No acute lesions noted NEURO: Moves all extremities equally; Motor and sensory function intact PSYCH: The patient's mood and manner are appropriate. Grooming and personal hygiene are appropriate. Course - Re-evaluation Re-evalutation: 11/14/17 12:53 Given the above history and physical examination a repeat CT scan renal colic protocol as well as basic labs, urinalysis, and nausea medications have been provided. We would like to evaluate for the possibility of a recurrent kidney stone requiring urologic intervention or possible urinary tract infection complicating a kidney stone management. 11/14/17 13:00 CT scan of the abdomen and pelvis as recorded. No obvious signs of urinary tract infection. Creatinine is slightly increased. Patient still has not vomited but still is very nauseous. Dr. Layton has called back and believe he will most likely try to perform a double-J this evening. He is asked that I admit to the hospitalist. This has been performed. - Vital Signs Vital signs: Temp Pulse Resp BP Pulse Ox 98.0 F 88 18 119/74 97 11/14/17 10:51 11/14/17 10:51 11/14/17 10:51 11/14/17 10:51 11/14/17 10:51 - Laboratory Result Diagrams: 11/14/17 11:38 11/14/17 11:38 Laboratory results interpreted by me: 11/14/17 11/14/17 11:38 11:38 WBC 12.4 H Absolute Neutrophils 8.4 H Sodium 135.6 L Chloride 97 L BUN 25 H Creatinine 1.62 H Est GFR ( Amer) 53 L Est GFR (Non-Af Amer) 43 L Glucose 209 H Total Bilirubin 1.6 H Discharge - Discharge Clinical Impression: Kidney stone on left side Condition: Fair Disposition: ADMITTED OBSERVATION Admitting Provider: Hospitalist Unit Admitted: Medical Floor Referrals: KAYLENE LAYTON MD [Primary Care Provider] - Follow up as needed
[2017-11-14] MEDS ORDERED: ONDANSETRON HCL INJ/PF 4 MG/2 ML SDV IV PRN (14:04)
[2017-11-14] MEDS ORDERED: MORPHINE SULFATE IR 15 MG TABLET PO PRN (14:10)
[2017-11-14] MEDS ORDERED: GLUCAGON,HUMAN RECOMB 1 MG INJ IM PRN (14:14)
[2017-11-14] MEDS ORDERED: DEXTROSE 50%-WATER 25 GM/50 ML DISP.SYRIN IV PRN ×2 (14:14)
[2017-11-14] MEDS ORDERED: DEXTROSE 40% GEL 15 GM TUBE PO PRN ×2 (14:14)
--- NOTE | 2017-11-14 14:34 | PDOC H&P ---
History of Present Illness Admission Date/PCP: KAYLENE URBAN MD History of Present Illness: LEATHA CAPONE is a 62 year old male who was sent over from the urologist office due to a concern for obstructing ureteral stones. He been nauseated for about 3 days but has been taking his medication. He has not been running a fever. He thinks he has been urinating normally. He recently had a ureteral stent on the right side and then had it subsequently removed. He said he underwent lithotripsy sometime during that event as well. CT scan of the ER confirmed that he had an obstructing ureteral stone on the left. The ER provider tells me that the urologist is planning on putting a double-J stent later on today. Past Medical History Cardiac Medical History: Reports: Atrial Fibrillation - ablation, Hyperlipidema , Hypertension Neurological Medical History: Denies: Seizures Endocrine Medical History: Reports: Diabetes Mellitus Type 2 GI Medical History: Reports: Diverticulitis Past Surgical History Past Surgical History: Reports: Tonsillectomy Social History Information Source: Patient Lives with: Spouse/Significant other Smoking Status: Never Smoker Frequency of Alcohol Use: None Hx Recreational Drug Use: No Drugs: None Hx Prescription Drug Abuse: No Family History Family History: Reviewed & Not Pertinent Parental Family History Reviewed: No - Noncontributory Children Family History Reviewed: No - Noncontributory Sibling(s) Family History Reviewed.: No - Noncontributory Medication/Allergy Home Medications: Glimepiride [Amaryl 4 mg Tablet] 4 mg PO DAILY #30 tablet 06/26/14 Isosorbide Mononitrate [Imdur 60 mg Tablet.er] 120 mg PO DAILY #30 tab.er.24h Doxazosin Mesylate 4 mg PO QHS 06/09/15 Metformin HCl [Glucophage 850 mg Tablet] 850 mg PO BID 06/09/15 Olmesartan Medoxomil [Benicar] 40 mg PO DAILY 06/09/15 Apixaban [Eliquis 5 mg Tablet] 5 mg PO Q12 01/04/17 Diltiazem HCl [Diltiazem 24Hr ER] 360 mg PO DAILY 01/04/17 Dofetilide 250 mcg PO Q12 01/04/17 Fluticasone Propionate [Flonase Nasal Warren 50 Mcg/Warren 16 gm] 1 spray NAREB DAILY 01/04/17 Labetalol HCl [Trandate] 150 mg PO Q12 01/04/17 Levocetirizine Dihydrochloride [Xyzal] 5 mg PO QPM 01/04/17 Spironolactone 25 mg PO DAILY 01/04/17 Ascorbic Acid [Vitamin C 500 mg Tablet] 1,000 mg PO DAILY 10/23/17 Atorvastatin Calcium [Lipitor 10 mg Tablet] 10 mg PO QHS 10/23/17 Cephalexin Monohydrate [Keflex 500 mg Capsule] 500 mg PO Q6 MDD STARTED 10/22 Multivitamin [Tab-A-Priyank (Multiple Vitamin) Tablet] 1 tab PO DAILY 10/23/17 Promethazine HCl [Phenergan 25 mg Tablet] 25 mg PO Q6HP PRN 10/23/17 Tamsulosin HCl [Flomax 0.4 mg Cap.sr] 0.4 mg PO QPM 10/23/17 Metoclopramide HCl [Metoclopramide HCl Odt] 5 mg PO QIDP PRN #20 tab.rapdis 07/09 Morphine Sulfate [Morphine Ir 15 Mg Tablet] 15 mg PO Q4HP PRN #20 tablet Ondansetron [Zofran Odt 4 mg Tablet] 1 - 2 tab PO Q4H PRN #20 tab.rapdis Promethazine HCl [Phenergan 25 mg Tablet] 1 - 2 tab PO Q6H PRN #20 tablet Allergies/Adverse Reactions: bismuth subsalicylate [From Pepto-Bismol] Allergy (Verified 11/14/17 11:03) Review of Systems All systems: reviewed and no additional remarkable complaints except as stated - A 10 point review of systems was conducted with the patient was negative except as noted above Physical Exam Vital Signs: Temp Pulse Resp BP Pulse Ox 98.0 F 88 18 119/74 97 11/14/17 10:51 11/14/17 10:51 11/14/17 10:51 11/14/17 10:51 11/14/17 10:51 Intake & Output 11/13/17 11/14/17 11/15/17 06:59 06:59 06:59 Intake Total 1000 Balance 1000 Weight 136.9 kg General appearance: PRESENT: cooperative, mild distress, morbidly obese Head exam: PRESENT: atraumatic, normocephalic Eye exam: PRESENT: conjunctiva pink, EOMI, PERRLA. ABSENT: conjunctival injection, scleral icterus Ear exam: PRESENT: normal external ear exam Mouth exam: PRESENT: moist, neck supple. ABSENT: dry mucosa Throat exam: ABSENT: tonsillar exudate, tonsillogmegaly Neck exam: PRESENT: full ROM. ABSENT: carotid bruit, JVD, tenderness Respiratory exam: PRESENT: clear to auscultation warner, unlabored. ABSENT: accessory muscle use, crackles, retraction, rhonchi Cardiovascular exam: PRESENT: RRR. ABSENT: systolic murmur Vascular exam: PRESENT: normal capillary refill. ABSENT: pallor GI/Abdominal exam: PRESENT: normal bowel sounds. ABSENT: guarding, mass, rebound Extremities exam: PRESENT: full ROM. ABSENT: pedal edema Musculoskeletal exam: PRESENT: ambulatory, normal inspection. ABSENT: deformity Neurological exam: PRESENT: alert, awake, oriented to person, oriented to place , oriented to time, CN II-XII grossly intact Psychiatric exam: PRESENT: appropriate affect, normal mood Skin exam: PRESENT: dry, warm Results Laboratory Results: 11/14/17 11:38 11/14/17 11:38 11/14/17 11/14/17 11:38 11:38 WBC 12.4 H RBC 5.32 Hgb 15.1 Hct 44.5 MCV 84 MCH 28.4 MCHC 34.0 RDW 13.9 Plt Count 313 Seg Neutrophils % 67.6 Lymphocytes % 19.1 Monocytes % 11.6 Eosinophils % 1.3 Basophils % 0.4 Absolute Neutrophils 8.4 H Absolute Lymphocytes 2.4 Absolute Monocytes 1.4 Absolute Eosinophils 0.2 Absolute Basophils 0.1 Sodium 135.6 L Potassium 4.9 Chloride 97 L Carbon Dioxide 24 Anion Gap 15 BUN 25 H Creatinine 1.62 H Est GFR ( Amer) 53 L Est GFR (Non-Af Amer) 43 L Glucose 209 H Calcium 9.2 Total Bilirubin 1.6 H AST 43 ALT 51 Alkaline Phosphatase 96 Total Protein 7.5 Albumin 4.3 Lipase 128.0 Impressions: Limited or Localized CT 11/14/17 11:21 IMPRESSION: Obstructing 6.9 mm in diameter calculus in the proximal left ureter. There appears to be a 2nd calculus just superior to the obstructing calculus in the proximal left ureter. Bilateral nonobstructing renal calculi. Other findings as noted above. Assessment & Plan - Diagnosis (1) Ureteral obstruction, left Is this a current diagnosis for this admission?: Yes Plan: Urology to see for possible stenting (2) Acute kidney injury Is this a current diagnosis for this admission?: Yes Plan: IV fluids. Monitor urine output. Should resolve after the ureteral obstruction is relieved. (3) Chronic atrial fibrillation Is this a current diagnosis for this admission?: Yes Plan: Currently in sinus rhythm. We will continue his home medications. (4) Morbid obesity with BMI of 40.0-44.9, adult Is this a current diagnosis for this admission?: Yes Plan: Encourage lifestyle modification - Time Time Spent: 50 to 70 Minutes Medications reviewed and adjusted accordingly: Yes Anticipated discharge: Home Within: within 48 hours - Inpatient Certification Based on my medical assessment, after consideration of the patient's comorbidities, presenting symptoms, or acuity I expect that the services needed warrant INPATIENT care.: Yes I certify that my determination is in accordance with my understanding of Medicare's requirements for reasonable and necessary INPATIENT services [42 CFR 412.3e].: Yes Medical Necessity: Need for Surgery - Placement of ureteral stent Post Hospital Care: D/C Store Lead Documentation
[2017-11-14] MEDS: NORMAL SALINE 1000 ML 1,000 ML IV PRN (14:45)
[2017-11-14] MEDS ORDERED: DEXAMETHASONE SOD PHOSPHATE INJ 4 MG/1 ML VIAL ONE (14:58)
[2017-11-14] MEDS ORDERED: FENTANYL CITRATE INJ/PF 100 MCG/2 ML AMPUL ONE (14:58)
[2017-11-14] MEDS ORDERED: ONDANSETRON HCL INJ/PF 4 MG/2 ML SDV ONE (14:58)
[2017-11-14] MEDS ORDERED: MIDAZOLAM 2 MG/2 ML INJ ONE (14:58)
[2017-11-14] MEDS ORDERED: LIDOCAINE 2% INJ-PF (20 MG/ML) 10 ML AMPUL ONE (14:58)
[2017-11-14] MEDS ORDERED: PROPOFOL INJ 200 MG/20 ML VIAL IV ONE (14:59)
--- NOTE | 2017-11-14 16:31 | Operative Report ---
Operative Report DATE OF SURGERY: 11/14/17 Operative Report: left obstructing ureteral stone PREOPERATIVE DIAGNOSIS: left obsctucting ureteral stone POSTOPERATIVE DIAGNOSIS: same OPERATION: cystoscopy, left retrograde and insertion of left double j catheter SURGEON: KAYLENE URBAN ANESTHESIA: GA TISSUE REMOVED OR ALTERED: 0 COMPLICATIONS: 0 ESTIMATED BLOOD LOSS: 0 INTRAOPERATIVE FINDINGS: obstructed left kidney PROCEDURE: with the patient in the lithotomy position after the induction of GA, the whole area prepped and scrubed. then # 21 cystoscope was inserted into the bladder , the left ureteral orifice was identified, # 5 ureteral catheter over a guide wire was inerted into the left ureter, retrograde was done the proximal stone was giving negative impression , then the guide was was advanced to the renal pelvis, then # 26-4.8 double j catheter was introduced, under flousocopy was secured in the renal pelvis, hydronephrotic flow seen coming through the double j. the guide wire and the scope were removed. patient tolerated the procedure and left theOR in good condition.
--- NOTE | 2017-11-14 16:47 | RADIOLOGY REPORT (SQ) ---
EXAM DESCRIPTION: PYELOGRAM RETROGRADE COMPLETED DATE/TIME: 11/14/2017 4:33 pm REASON FOR STUDY: LEFT STENT PLACEMENT COMPARISON: None. FLUOROSCOPY TIME: 29 seconds 3 images saved to PACS. TECHNIQUE: Intra-operative images acquired during surgical procedure to evaluate progress. NUMBER OF IMAGES: 3 LIMITATIONS: None. FINDINGS: Selected images from retrograde pyelogram on the left. There is deployment of a ureteral stent. IMPRESSION: IMAGE(S) OBTAINED DURING PROCEDURE. COMMENT: Quality ID [id number]: Final reports for procedures using fluoroscopy that document radiation exp osure indices, or exposure time and number of fluorographic images (if radiation exposure indices are not available) Please consult full operative report of the attending physician for description of the procedure. TECHNICAL DOCUMENTATION: JOB ID: [id number] [employer]- All Rights Reserved Reading location - IP/workstation name: [email or web address]
[2017-11-14] MEDS ORDERED: TAMSULOSIN HCL 0.4 MG CAP.SR.24H PO SCH (18:00)
[2017-11-14 20:53] LABS: APPEARANCE,URINE SLIGHTLY-CLOUDY; BILIRUBIN,URINE NEGATIVE (NEGATIVE); COLOR,URINE YELLOW; GLUCOSE, URINE NEGATIVE (NEGATIVE); KETONES,URINE TRACE mg/dL (NEGATIVE); LEUKOCYTE ESTERASE,URINE MODERATE (NEGATIVE); NITRITE,URINE NEGATIVE (NEGATIVE); PROTEIN,URINE 30 mg/dL (NEGATIVE); URINE SPECIFIC GRAVITY 1.012; UROBILINOGEN,URINE NEGATIVE mg/dL (<2.0)
[2017-11-14] MEDS ORDERED: DOXAZOSIN MESYLATE 4 MG TABLET PO SCH (22:00)
[2017-11-14] MEDS: INSULIN REG, HUMAN 100 UNIT/ML 3 ML VIAL (PYX) SUBCUT PRN (22:02)
[2017-11-14] MEDS: DOFETILIDE 125 MCG CAPSULE PO SCH (22:03)
[2017-11-14] MEDS: PROMETHAZINE HCL 25 MG TABLET PO PRN (22:54)
--- NOTE | 2017-11-15 00:18 | EKG REPORT ---
SEVERITY:- ABNORMAL ECG - SINUS RHYTHM FIRST DEGREE AV BLOCK BORDERLINE PROLONGED QT INTERVAL : Confirmed by: Rand Marshall MD 15-Nov-2017 00:16:46
[2017-11-15 04:17] LABS: HEMOGLOBIN 13.4 g/dL (13.5-17.0); MEAN CORPUSCULAR HEMOGLOBIN 28.6 pg (27.0-33.4); MEAN CORPUSCULAR HGB CONC 34.3 g/dL (32.0-36.0); MEAN CORPUSCULAR VOLUME 83 fl (80-97); PLATELET COUNT 248 10^3/uL (150-450); RED BLOOD COUNT 4.68 10^6/uL (4.35-5.55); RED CELL DISTRIBUTION WIDTH 14.1 % (11.5-14.0); WHITE BLOOD COUNT 9.4 10^3/uL (4.0-10.5)
[2017-11-15 04:31] LABS: ANION GAP 12 (5-19); BLOOD UREA NITROGEN 30 mg/dL (7-20); CALCIUM 8.9 mg/dL (8.4-10.2); CARBON DIOXIDE 24 mmol/L (22-30); CHLORIDE 102 mmol/L (98-107); GLUCOSE 305 mg/dL (75-110); POTASSIUM 5.3 mmol/L (3.6-5.0); SODIUM 137.5 mmol/L (137-145)
[2017-11-15] MEDS: INSULIN REG, HUMAN 100 UNIT/ML 3 ML VIAL (PYX) SUBCUT PRN (05:44)
[2017-11-15] MEDS: PROMETHAZINE HCL 25 MG TABLET PO PRN (08:19)
[2017-11-15] MEDS: NORMAL SALINE 1000 ML 1,000 ML IV PRN (08:21)
[2017-11-15] MEDS: DOFETILIDE 125 MCG CAPSULE PO SCH (09:21)
[2017-11-15] MEDS ORDERED: DILTIAZEM HCL 180 MG CAPSULE.CR PO SCH (10:00)
[2017-11-15 12:48] VITALS: BP 157/85
[2017-11-15] MEDS ORDERED: SUCCINYLCHOLINE CHLORIDE INJ 200 MG/10 ML VIAL ONE (14:44)
--- NOTE | 2017-11-15 20:16 | PDOC DISCHARGE SUMMARY ---
General - Admit/Disc Date/PCP Admission Date/Primary Care Provider: 11/14/17 14:21 KAYLENE URBAN MD Discharge Date: 11/15/17 - Discharge Diagnosis (1) Ureteral obstruction, left Is this a current diagnosis for this admission?: Yes Summary: Had a double-J stent in the left ureter, tolerated it well, will follow up with urology as an outpatient. (2) Acute kidney injury Is this a current diagnosis for this admission?: Yes Summary: Improved after stenting which relieved the obstruction (3) Chronic atrial fibrillation Is this a current diagnosis for this admission?: Yes Summary: Continue on his usual medication regimen (4) Morbid obesity with BMI of 40.0-44.9, adult Is this a current diagnosis for this admission?: Yes Summary: Encouraged lifestyle modification - Additional Information Discharge Diet: Cardiac, Diabetic Discharge Activity: Activity As Tolerated Home Medications: Glimepiride [Amaryl 4 mg Tablet] 4 mg PO DAILY #30 tablet 06/26/14 Isosorbide Mononitrate [Imdur 60 mg Tablet.er] 120 mg PO DAILY #30 tab.er.24h Doxazosin Mesylate 4 mg PO QHS 06/09/15 Metformin HCl [Glucophage 850 mg Tablet] 850 mg PO BID 06/09/15 Olmesartan Medoxomil [Benicar] 40 mg PO DAILY 06/09/15 Apixaban [Eliquis 5 mg Tablet] 5 mg PO Q12 01/04/17 Diltiazem HCl [Diltiazem 24Hr ER] 360 mg PO DAILY 01/04/17 Dofetilide 250 mcg PO Q12 01/04/17 Fluticasone Propionate [Flonase Nasal Keyes 50 Mcg/Keyes 16 gm] 1 spray NAREB DAILY 01/04/17 Labetalol HCl [Trandate] 150 mg PO Q12 01/04/17 Levocetirizine Dihydrochloride [Xyzal] 5 mg PO QPM 01/04/17 Spironolactone 25 mg PO DAILY 01/04/17 Atorvastatin Calcium [Lipitor 10 mg Tablet] 10 mg PO QHS 10/23/17 Multivitamin [Tab-A-Priyank (Multiple Vitamin) Tablet] 1 tab PO DAILY 10/23/17 Tamsulosin HCl [Flomax 0.4 mg Cap.sr] 0.4 mg PO QPM 10/23/17 History of Present Illness History of Present Illness: LEATHA CAPONE is a 62 year old male who was sent over from the urologist office due to a concern for obstructing ureteral stones. He been nauseated for about 3 days but has been taking his medication. He has not been running a fever. He thinks he has been urinating normally. He recently had a ureteral stent on the right side and then had it subsequently removed. He said he underwent lithotripsy sometime during that event as well. CT scan of the ER confirmed that he had an obstructing ureteral stone on the left. The ER provider tells me that the urologist is planning on putting a double-J stent later on today. Hospital Course Hospital Course: He was seen in consultation by urology who put in a double-J stent in the left ureter. This procedure was successful and he already had improvement in his creatinine. His pain had gone away. He will go back on his usual medications. Urology will see him back in the office in 1-2 weeks for removal of the stent and possible lithotripsy. His labs and examination were reassuring he was discharged today in good condition. Physical Exam Vital Signs: Temp Pulse Resp BP Pulse Ox 98.7 F 92 19 157/85 H 97 11/15/17 11:35 11/15/17 11:35 11/15/17 11:35 11/15/17 11:35 11/15/17 11:35 Intake & Output 11/14/17 11/15/17 11/16/17 06:59 06:59 06:59 Intake Total 1355 Output Total 1000 Balance 355 Weight 136.5 kg General appearance: PRESENT: no acute distress, cooperative, morbidly obese Respiratory exam: PRESENT: clear to auscultation warner, unlabored. ABSENT: rales , rhonchi, tachypnea, wheezes Cardiovascular exam: PRESENT: RRR. ABSENT: systolic murmur GI/Abdominal exam: PRESENT: normal bowel sounds, soft. ABSENT: guarding, rebound, tenderness Extremities exam: ABSENT: clubbing, pedal edema Musculoskeletal exam: PRESENT: ambulatory, normal inspection. ABSENT: deformity Neurological exam: PRESENT: alert, awake, oriented to person, oriented to place , oriented to time Psychiatric exam: PRESENT: appropriate affect, normal mood Skin exam: PRESENT: dry, warm Results Laboratory Results: 11/15/17 04:09 11/15/17 04:09 11/14/17 11/15/17 11/15/17 20:30 04:09 04:09 WBC 9.4 RBC 4.68 Hgb 13.4 L Hct 39.0 MCV 83 MCH 28.6 MCHC 34.3 RDW 14.1 H Plt Count 248 Sodium 137.5 Potassium 5.3 H Chloride 102 Carbon Dioxide 24 Anion Gap 12 BUN 30 H Creatinine 1.44 H Est GFR ( Amer) > 60 Est GFR (Non-Af Amer) 50 L Glucose 305 H Calcium 8.9 Urine Color YELLOW Urine Appearance SLIGHTLY-CLOUDY Urine pH 5.0 Ur Specific Traver 1.012 Urine Protein 30 H Urine Glucose (UA) NEGATIVE Urine Ketones TRACE H Urine Blood LARGE H Urine Nitrite NEGATIVE Ur Leukocyte Esterase MODERATE H Urine WBC (Auto) 73 Urine RBC (Auto) >182 Impressions: Retrograde Pyelogram 11/14/17 00:00 IMPRESSION: IMAGE(S) OBTAINED DURING PROCEDURE. Limited or Localized CT 11/14/17 11:21 IMPRESSION: Obstructing 6.9 mm in diameter calculus in the proximal left ureter. There appears to be a 2nd calculus just superior to the obstructing calculus in the proximal left ureter. Bilateral nonobstructing renal calculi. Other findings as noted above. Qualifiers - * PATIENT BEING DISCHARGED WITH ANY OF THE FOLLOWING DIAGNOSIS: No
== END 2017-11-15 12:30 | disposition home or self-care (01) | DRG 690 ==
LOC: ER 10:40 → OBSVTOIN 14:21 → EH 14:21 → 5 18:22
PROVIDERS: ADMIT Internal Medicine; ATTEND Internal Medicine
PROC: 0T778DZ Dilation of Left Ureter with Intraluminal Device, Via Natural or Artificial Opening Endoscopic (ICD-10-PCS; principal; 2017-11-14)
DX: N13.5 Crossing vessel and stricture of ureter without hydronephrosis (principal); N17.9 Acute kidney failure, unspecified; Z68.41 Body mass index [BMI] 40.0-44.9, adult; I48.2 Chronic atrial fibrillation; E66.01 Morbid (severe) obesity due to excess calories; E78.00 Pure hypercholesterolemia, unspecified; I10 Essential (primary) hypertension; E11.9 Type 2 diabetes mellitus without complications; Z79.899 Other long term (current) drug therapy; Z88.8 Allergy status to other drugs, medicaments and biological substances
CPT/HCPCS: 36415; 74420; 76380; 80048; 80053; 81001; 82962; 83690; 85025; 85027; 87086; 910; 93005; 93010; 96374; 96375; 99285; J0330; J1100; J1200; J1815; J2250; J2405; J2704; J2765; J3010; J3490; J7030

== ENCOUNTER → 2017-11-14 | Outpatient (CLI) | payer BC ==
[~2017-11-14] MED LIST: DIPHENHYDRAMINE HCL 50 MG/ML VIAL IV PRN; FENTANYL CITRATE INJ/PF 100 MCG/2 ML AMPUL IV PRN; LIDOCAINE 2% URO-JET 5 ML KIT ONE; MEPERIDINE HCL/PF INJ 25 MG/1 ML DISP.SYRIN IV PRN; MORPHINE SULFATE 10 MG/ML INJ IV PRN; ONDANSETRON HCL INJ/PF 4 MG/2 ML SDV IV PRN; PROMETHAZINE HCL INJ 25 MG/1 ML VIAL IV PRN
[2017-11-14 10:17] LABS: ABSOLUTE EOSINOPHILS # (AUTO) 0.2 10^3/uL (0.0-0.6); ABSOLUTE LYMPHOCYTES (AUTO) 1.9 10^3/uL (0.5-4.7); ABSOLUTE MONOCYTES (AUTO) 1.2 10^3/uL (0.1-1.4); ABSOLUTE NEUT (AUTO) 7.7 10^3/uL (1.7-8.2); BASOPHILS % (AUTO) 0.3 % (0-2); EOSINOPHILS % (AUTO) 1.7 % (0-6); HEMATOCRIT 43.2 % (37.9-51.0); HEMOGLOBIN 14.6 g/dL (13.5-17.0); LYMPHOCYTES % (AUTO) 17.5 % (13-45); MEAN CORPUSCULAR HEMOGLOBIN 28.3 pg (27.0-33.4); MEAN CORPUSCULAR HGB CONC 33.8 g/dL (32.0-36.0); MEAN CORPUSCULAR VOLUME 84 fl (80-97); MONOCYTES % (AUTO) 10.9 % (3-13); PLATELET COUNT 299 10^3/uL (150-450); RED BLOOD COUNT 5.16 10^6/uL (4.35-5.55); SEGMENTED NEUTROPHILS % (AUTO) 69.6 % (42-78); TOTAL CELLS COUNTED % (AUTO) 100 %
[2017-11-14 10:47] LABS: ANION GAP 15 (5-19); BLOOD UREA NITROGEN 23 mg/dL (7-20); CALCIUM 9.3 mg/dL (8.4-10.2); CARBON DIOXIDE 24 mmol/L (22-30); CHLORIDE 97 mmol/L (98-107); GLUCOSE 238 mg/dL (75-110); POTASSIUM 4.8 mmol/L (3.6-5.0)
[2017-11-14 18:17] VITALS: BP 126/64
== END ==
LOC: OD 09:01
PROVIDERS: ATTEND Urology
DX: N20.0 Calculus of kidney (principal)
CPT/HCPCS: 36415; 85025; 80048; C1769; C2617; C1758; J3490

== ENCOUNTER 2017-12-20 11:17 | Day surgery (SDC) | payer BC ==
[~2017-12-20 11:17] MED LIST changes: +CEFAZOLIN 1 GM/D5W RTU 1 GM/50 ML RTUPB IV PRN; -DIPHENHYDRAMINE HCL 50 MG/ML VIAL IV PRN; -FENTANYL CITRATE INJ/PF 100 MCG/2 ML AMPUL IV PRN; +GLYCOPYRROLATE 1 MG/5 ML SYRINGE ONE; -LIDOCAINE 2% URO-JET 5 ML KIT ONE; -MEPERIDINE HCL/PF INJ 25 MG/1 ML DISP.SYRIN IV PRN; -MORPHINE SULFATE 10 MG/ML INJ IV PRN; +NEOSTIGMINE METHYLSULFATE 10 MG/10 ML VIAL ONE; -ONDANSETRON HCL INJ/PF 4 MG/2 ML SDV IV PRN; -PROMETHAZINE HCL INJ 25 MG/1 ML VIAL IV PRN; +ROCURONIUM BROMIDE INJ 50 MG/5 ML VIAL IV ONE; +SUCCINYLCHOLINE CHLORIDE INJ 200 MG/10 ML VIAL ONE
[2017-12-20] MEDS ORDERED: MIDAZOLAM 2 MG/2 ML INJ ONE (12:45)
[2017-12-20] MEDS ORDERED: FENTANYL CITRATE INJ/PF 100 MCG/2 ML AMPUL ONE (12:45)
[2017-12-20] MEDS ORDERED: PROPOFOL INJ 200 MG/20 ML VIAL IV ONE (12:45)
[2017-12-20] MEDS ORDERED: ACETAMINOPHEN 1,000 MG/100 ML RTUPB IV ONE (12:46)
[2017-12-20] MEDS ORDERED: HYDROMORPHONE HCL INJ/PF 2 MG/ML AMPULE ONE (12:46)
[2017-12-20] MEDS ORDERED: SUGAMMADEX SODIUM 200 MG/2 ML SDV IV ONE (12:46)
[2017-12-20] MEDS ORDERED: LIDOCAINE 2% INJ-PF (20 MG/ML) 10 ML AMPUL ONE (12:54)
[2017-12-20 13:14] LABS: INTERNATIONAL RATION (INR) 0.93; PROTHROMBIN TIME 12.9 SEC (11.4-15.4)
[2017-12-20] MEDS ORDERED: FENTANYL CITRATE INJ/PF 100 MCG/2 ML AMPUL IV PRN ×3 (14:48)
[2017-12-20] MEDS ORDERED: MEPERIDINE HCL/PF INJ 25 MG/1 ML DISP.SYRIN IV PRN (14:48)
[2017-12-20] MEDS ORDERED: DIPHENHYDRAMINE HCL 50 MG/ML VIAL IV PRN (14:48)
[2017-12-20] MEDS ORDERED: PROMETHAZINE HCL INJ 25 MG/1 ML VIAL IV PRN ×2 (14:48)
--- NOTE | 2017-12-20 15:43 | RADIOLOGY REPORT (SQ) ---
EXAM DESCRIPTION: PYELOGRAM RETROGRADE COMPLETED DATE/TIME: 12/20/2017 3:31 pm REASON FOR STUDY: RETROGRADE PYELOGRAM N20.1 CALCULUS OF URETER COMPARISON: None. FLUOROSCOPY TIME: 3.9 minutes Cine images saved to PACS. TECHNIQUE: Intra-operative images acquired during surgical procedure to evaluate progress. NUMBER OF IMAGES: 1 LIMITATIONS: None. FINDINGS: Fluoroscopy was provided for intraoperative procedure. Please refer to the operative repo rt for further discussion. IMPRESSION: IMAGE(S) OBTAINED DURING PROCEDURE. COMMENT: Quality ID [id number]: Final reports for procedures using fluoroscopy that document radiation exp osure indices, or exposure time and number of fluorographic images (if radiation exposure indices are not available) Please consult full operative report of the attending physician for description of the procedure. TECHNICAL DOCUMENTATION: JOB ID: [id number] [employer]- All Rights Reserved Reading location - IP/workstation name: [email or web address]
--- NOTE | 2017-12-20 16:30 | OPERATIVE REPORT E ---
Operative Report NAME: LEATHA CAPONE : 1955 AGE: 62Y DATE OF SURGERY: 12/20/2017 ROOM: PREOPERATIVE DIAGNOSIS: LEFT URETERAL CALCULUS. POSTOPERATIVE DIAGNOSIS: LEFT URETERAL CALCULUS. OPERATION: 1. Cystoscopy with left ureteroscopy, laser lithotripsy, and basket stone extraction. 2. Left pyelogram. SURGEON: JAIMEE CALDERON M.D. TEEN COUNSELOR: None. TISSUE REMOVED OR ALTERED: Ureteral calculus. ESTIMATED BLOOD LOSS: Minimal. COMPLICATIONS: None. INDICATIONS FOR PROCEDURE: The patient is a 62-year-old gentleman who had a left ureteral stent placed approximately 3 weeks ago because of an obstructing left proximal 6 mm ureteral calculus. Several weeks prior to that procedure, he had been treated with ureteroscopy with right laser lithotripsy by Dr. Elliott. The various options for treatment as well as risks and benefits were discussed. Potential complications that were discussed included but were not limited to bleeding, infection, failure to cure the problem, need for additional surgery, injury to the ureter, and need for a ureteral stent. The patient appeared to understand the various options for treatment as well as risks and benefits and He wished to proceed with the proposed surgery. OPERATION: After the patient was identified in the preoperative holding area, he was brought to the operating room. A timeout was performed, where the correct patient, side of procedure, and procedure was confirmed. He was then given general anesthesia. He was then positioned in a dorsal lithotomy position. All pressure points were padded. He was next prepped and draped in the routine sterile manner. A #23 sheath and panendoscope was used to examine the urethra. His urethra and prostatic urethra appeared normal. The stone was encrusted and the lumen was obstructed due to calcification. A grasping forceps was used to extract the stent to the level of the external urethral meatus but the lumen was occluded and a guidewire could not be passed through the lumen of the double-J stent. The patient was then re-cystoscoped and a guidewire was threaded up the left ureter. An access sheath which was 55 cm long and 12/14 Luxembourgish size was threaded over the guidewire under continuous fluoroscopic guidance. There was some resistance at the proximal ureter, most likely due to his ureteral stone. I did not force the access sheath any further. I then passed a ureteroscope through the lumen of the access sheath and there appeared to be a stone in the lumen with clot. I tried to irrigate this free but it migrated into the kidney. PYELOGRAM: A total of 10 mL of Omnipaque was used to fill the left collecting system and proximal ureter. There was a filling defect in the lower pole of the left kidney, consistent with a stone. IMPRESSION: Filling defect, left lower pole jw, consistent with a stone. URETEROSCOPY WITH LASER LITHOTRIPSY: A 200 micron fiber was passed through the ureteroscope and the stone was broken into many small fragments. The stone fragments were then extracted using a basket. Clot and debris was also extracted using the basket. Each of the calices were examined sequentially under fluoroscopic guidance. No remaining stone was noted. It should be noted that he had a calcification within a papilla and several of the calices, particularly in an upper portion of a middle pole jw. This accounts for the calcification noted in his kidney on his CT scan. The ureter was examined as the ureteroscope was removed and the ureter had not been injured. A small fragment of stone was engaged in the mid ureter and was extracted as well. Stone fragments were sent for analysis. The patient was returned to the recovery room, having tolerated this procedure well. All needle, sponge, and instrument counts were correct. DICTATING PHYSICIAN: JAIMEE CALDERON M.D. [id number] PHY#: [id number] ID: [id number] JOB#: [id number] ACCT: [id number] cc:JAIMEE CALDERON M.D. >
[2017-12-20] MEDS ORDERED: KETOROLAC TROMETHAMINE INJ/PF 30 MG/1 ML SDV ONE (16:44)
[2017-12-20] MEDS ORDERED: METOCLOPRAMIDE HCL INJ/PF 10 MG/2 ML SDV ONE (17:15)
[2017-12-20 18:52] VITALS: BP 158/94
== END 2017-12-20 17:50 | disposition home or self-care (01) ==
LOC: OROUT 11:17
PROVIDERS: ATTEND Urology
DX: N20.1 Calculus of ureter (principal); E11.9 Type 2 diabetes mellitus without complications; I10 Essential (primary) hypertension; G47.33 Obstructive sleep apnea (adult) (pediatric); E66.9 Obesity, unspecified; E78.5 Hyperlipidemia, unspecified; Z88.8 Allergy status to other drugs, medicaments and biological substances; Z79.01 Long term (current) use of anticoagulants; Z68.41 Body mass index [BMI] 40.0-44.9, adult; Z87.440 Personal history of urinary (tract) infections; Z79.84 Long term (current) use of oral hypoglycemic drugs; Z79.82 Long term (current) use of aspirin
CPT/HCPCS: 36415; 82962; 82370; 84132; 85610; 74420; 52353; C1769; C1758; J2250; J0690; J3490 ×3; J3010; J1885; J2765; J0330; J2704; J0131; 918; J1170

== ENCOUNTER 2017-12-26 06:21 | Inpatient (IN) | payer BC ==
--- NOTE | 2017-12-26 06:48 | ER Document Report ---
ED GI/ - General Mode of Arrival: Ambulatory Information source: Patient TRAVEL OUTSIDE OF THE [place] IN LAST 30 DAYS: No <OLIVIA WARD - Last Filed: 12/26/17 08:11> <SONNY FAULKNER - Last Filed: 12/26/17 10:50> - General Chief Complaint: Nausea/Vomiting Stated Complaint: NAUSEA/VOMITING Time Seen by Provider: 12/26/17 06:40 Notes: 62-year-old male who presents to the emergency department today with complaints of nausea. Patient had lithotripsy and ureteral stent removal on December 20. Patient started back on Eliquis on Monday. Patient states the day after the surgery he had pain, the next day for most of the day he felt fine without pain and then that night developed nausea which has continued. Patient states he has just been dry heaving now. Patient states his last bowel movement was yesterday morning. Patient states he has been urinating normally. Patient denies any fevers or pain. (OLIVIA WARD) - Related Data Allergies/Adverse Reactions: bismuth subsalicylate [From Pepto-Bismol] Allergy (Verified 11/14/17 11:03) hydrocodone Adverse Reaction (Verified 12/20/17 12:26) ondansetron [From Zofran] Adverse Reaction (Verified 12/20/17 12:26) oxycodone Adverse Reaction (Verified 12/20/17 12:26) Past Medical History - General Information source: Patient - Social History Smoking Status: Never Smoker Cigarette use (# per day): No Frequency of alcohol use: None Drug Abuse: None Lives with: Family Family History: Reviewed & Not Pertinent - Past Medical History Cardiac Medical History: Reports: Hx Atrial Fibrillation - ablation, Hx Hypercholesterolemia, Hx Hypertension Endocrine Medical History: Reports: Hx Diabetes Mellitus Type 2 Renal/ Medical History: Reports: Hx Kidney Stones GI Medical History: Reports: Hx Diverticulitis Past Surgical History: Reports: Hx Cardiac Surgery - ablation, Hx Tonsillectomy - Immunizations Hx Diphtheria, Pertussis, Tetanus Vaccination: Yes Hx Pneumococcal Vaccination: 04/24/15 <OLIVIA WARD - Last Filed: 12/26/17 08:11> Review of Systems - Review of Systems Constitutional: denies: Fever EENT: No symptoms reported Cardiovascular: No symptoms reported Respiratory: No symptoms reported Gastrointestinal: See HPI, Nausea. denies: Abdominal pain, Diarrhea Genitourinary: No symptoms reported Male Genitourinary: No symptoms reported Musculoskeletal: No symptoms reported Skin: No symptoms reported Hematologic/Lymphatic: No symptoms reported Neurological/Psychological: No symptoms reported -: Yes All other systems reviewed and negative <OLIVIA WARD - Last Filed: 12/26/17 08:11> Physical Exam <OLIVIA WARD - Last Filed: 12/26/17 08:11> <SONNY FAULKNER - Last Filed: 12/26/17 10:50> - Vital signs Vitals: Temp Pulse Resp BP Pulse Ox 98.1 F 106 H 22 H 147/90 H 96 12/26/17 06:25 12/26/17 06:25 12/26/17 06:25 12/26/17 06:25 12/26/17 06:25 - Notes Notes: Physical Exam: General: Alert, appears nauseated, holding emesis bag. HEENT: Normocephalic. Atraumatic. PERRL. Extraocular movements intact. Oropharynx clear. Neck: Supple. Non-tender. Respiratory: Mildly tachypneic. Clear and equal breath sounds bilaterally. Cardiovascular: Regular rate and rhythm. Abdominal: Obese. Non-tender. No distension. Normal Bowel Sounds. Back: Non-tender. No deformity or step off. Extremities: Moves all four extremities. Upper extremities: Normal inspection. Normal ROM. Lower extremities: Normal inspection. No edema. Normal ROM. Neurological: Normal cognition. AAOx4. Normal speech. Psychological: Normal affect. Normal Mood. Skin: Warm. Dry. Normal color. (OLIVIA WARD) Course - Laboratory Result Diagrams: 12/26/17 07:35 12/26/17 07:35 <OLIVIA WARD - Last Filed: 12/26/17 08:11> - Laboratory Result Diagrams: 12/26/17 07:35 12/26/17 07:35 - Consults Dr. Maldonado Time consulted: 10:50 Consulted provider: will see as inpatient <SONNY FAULKNER - Last Filed: 12/26/17 10:50> - Re-evaluation Re-evalutation: 12/26/17 08:21 Patient reports his nauseousness is much better now and he would like something to drink. He has not urinated yet. We will give additional IV fluids and let him have some ice water to drink. (SONNY FAULKNER) - Vital Signs Vital signs: Temp Pulse Resp BP Pulse Ox 98.1 F 106 H 22 H 147/90 H 96 12/26/17 06:25 12/26/17 06:25 12/26/17 06:25 12/26/17 06:25 12/26/17 06:25 - Laboratory Laboratory results interpreted by me: 12/26/17 12/26/17 12/26/17 07:35 07:35 09:22 WBC 17.0 H Seg Neuts % (Manual) 89 H Lymphocytes % (Manual) 6 L Abs Neuts (Manual) 15.1 H Sodium 136.4 L Chloride 97 L Creatinine 1.37 H Est GFR (Non-Af Amer) 53 L Glucose 206 H Total Bilirubin 1.5 H Urine Protein 30 H Urine Ketones TRACE H Urine Blood LARGE H Ur Leukocyte Esterase LARGE H Discharge <OLIVIA WARD - Last Filed: 12/26/17 08:11> - Discharge Admitting Provider: Danyelle Unit Admitted: Telemetry <SONNY FAULKNER - Last Filed: 12/26/17 10:50> - Discharge Clinical Impression: Dehydration Nausea and vomiting Qualifiers: Vomiting type: unspecified Vomiting Intractability: non-intractable Qualified Code(s): R11.2 - Nausea with vomiting, unspecified Leukocytosis Qualifiers: Leukocytosis type: unspecified Qualified Code(s): D72.829 - Elevated white blood cell count, unspecified Urinary tract infection Qualifiers: Urinary tract infection type: site unspecified Hematuria presence: with hematuria Qualified Code(s): N39.0 - Urinary tract infection, site not specified Condition: Stable Disposition: ADMITTED INPATIENT Referrals: CHARLIE MALDONADO MD [Primary Care Provider] - Follow up as needed Scribe Attestation: 12/26/17 09:04 I personally performed the services described in the documentation, reviewed and edited the documentation which was dictated to the scribe in my presence, and it accurately records my words and actions. (SONNY FAULKNER) Scribe Documentation - Scribe Written by Scribe:: Marcell Oglesby, 12/26/2017 0811 acting as scribe for :: Gianni <OLIVIA WARD - Last Filed: 12/26/17 08:11>
[2017-12-26] MEDS ORDERED: NORMAL SALINE 1000 ML 1,000 ML IV ONE ×2 (06:49→08:24)
[2017-12-26] MEDS ORDERED: METOCLOPRAMIDE HCL INJ/PF 10 MG/2 ML SDV IV ONE ×3 (06:53→19:00)
[2017-12-26 08:02] LABS: HEMATOCRIT 42.6 % (37.9-51.0); HEMOGLOBIN 14.3 g/dL (13.5-17.0); MEAN CORPUSCULAR HEMOGLOBIN 28.1 pg (27.0-33.4); MEAN CORPUSCULAR HGB CONC 33.5 g/dL (32.0-36.0); MEAN CORPUSCULAR VOLUME 84 fl (80-97); PLATELET COUNT 229 10^3/uL (150-450); RED BLOOD COUNT 5.08 10^6/uL (4.35-5.55)
[2017-12-26 08:19] LABS: ALANINE AMINOTRANSFERASE 42 U/L (21-72); ALBUMIN 4.1 g/dL (3.5-5.0); ALKALINE PHOSPHATASE 101 U/L (38-126); ANION GAP 16 (5-19); ASPARTATE AMINO TRANSFERASE 23 U/L (17-59); BILIRUBIN,DIRECT 0.4 mg/dL (0.0-0.4); BILIRUBIN,TOTAL 1.5 mg/dL (0.2-1.3); BLOOD UREA NITROGEN 18 mg/dL (7-20); CALCIUM 9.6 mg/dL (8.4-10.2); CARBON DIOXIDE 23 mmol/L (22-30); CHLORIDE 97 mmol/L (98-107); GLUCOSE 206 mg/dL (75-110); POTASSIUM 4.6 mmol/L (3.6-5.0); SODIUM 136.4 mmol/L (137-145); TOTAL PROTEIN 7.3 g/dL (6.3-8.2)
[2017-12-26 08:23] LABS: ABSOLUTE MONOCYTES # (MANUAL) 0.9 10^3/uL (0.1-1.4); ABSOLUTE NEUTROPHILS# (MANUAL) 15.1 10^3/uL (1.7-8.2); BASOPHILS % (MANUAL) 0 % (0-2); EOSINOPHILS % (MANUAL) 0 % (0-6); LYMPHOCYTES % (MANUAL) 6 % (13-45); MONOCYTES % (MANUAL) 5 % (3-13); SEGMENTED NEUTROPHILS % (MAN) 89 % (42-78); TOTAL CELLS COUNTED 100
[2017-12-26 08:26] LABS: ANISOCYTOSIS SLIGHT; PLATELET COMMENT ADEQUATE; TOXIC GRANULATION SLIGHT
[2017-12-26 09:56] LABS: APPEARANCE,URINE CLOUDY; BILIRUBIN,URINE NEGATIVE (NEGATIVE); COLOR,URINE YELLOW; GLUCOSE, URINE NEGATIVE (NEGATIVE); KETONES,URINE TRACE mg/dL (NEGATIVE); LEUKOCYTE ESTERASE,URINE LARGE (NEGATIVE); NITRITE,URINE NEGATIVE (NEGATIVE); PROTEIN,URINE 30 mg/dL (NEGATIVE); URINE SPECIFIC GRAVITY 1.009; UROBILINOGEN,URINE NEGATIVE mg/dL (<2.0)
[2017-12-26] MEDS ORDERED: LEVOFLOXACIN 750 MG/D5W RTU 750 MG/150 ML RTUPB IV ONE (10:12)
[2017-12-26] MEDS: METOCLOPRAMIDE HCL INJ/PF 10 MG/2 ML SDV IV PRN ×2 (14:42→22:59)
--- NOTE | 2017-12-26 15:03 | PDOC H&P ---
History of Present Illness Admission Date/PCP: 12/26/17 10:56 CHARLIEANA MARÍA KWANHernán Patient complains of: Nausea History of Present Illness: LEATHA CAPONE is a 62 year old male known to my practice who presented to the ED with worsening nausea and dry heaving. he denied definite vomiting or abdominal pain. no fever or chills. He denied dysuria, hematuria or flank pain. Patient has history of renal stone with recent lithotripsy and ureteral stent removal since 12/20/2017 without any post removal issue with his urination. he denied any diarrhea or constipation. His morbidities include Hypertension, chronic atrial fibrillation, hyperlipidemia, Diabetes Mellitus Type 2 and Renal stone. His initial evaluation in the ED revealed significant leukocytosis with left shift and urinalysis suggestive of infectious process. He was advised hospitalization for further evaluation and management. Past Medical History Cardiac Medical History: Reports: Atrial Fibrillation - ablation, Hyperlipidema , Hypertension Denies: Coronary Artery Disease, Myocardial Infarction Pulmonary Medical History: Denies: Asthma, Bronchitis, Chronic Obstructive Pulmonary Disease (COPD), Pneumonia Neurological Medical History: Denies: Seizures Endocrine Medical History: Reports: Diabetes Mellitus Type 2 GI Medical History: Reports: Diverticulitis Musculoskeltal Medical History: Denies: Arthritis Hematology: Denies: Anemia Past Surgical History Past Surgical History: Reports: Tonsillectomy Social History Lives with: Family Smoking Status: Never Smoker Frequency of Alcohol Use: None Hx Recreational Drug Use: No Drugs: None Hx Prescription Drug Abuse: No - Advance Directive Resuscitation Status: Full Code Family History Family History: Reviewed & Not Pertinent Parental Family History Reviewed: Yes Children Family History Reviewed: Yes Sibling(s) Family History Reviewed.: Yes Medication/Allergy Home Medications: Apixaban [Eliquis 5 mg Tablet] 5 mg PO Q12 12/26/17 Atorvastatin Calcium [Lipitor 10 mg Tablet] 10 mg PO QPM 12/26/17 Diltiazem HCl [Diltiazem ER] 360 mg PO DAILY 12/26/17 Dofetilide [Tikosyn] 250 mcg PO Q12 12/26/17 Doxazosin Mesylate [Cardura 4 mg Tablet] 4 mg PO QPM 12/26/17 Fluticasone Propionate [Flonase Nasal [place] 50 Mcg/[place] 16 gm] 1 spray NASL DAILY 12/26/17 Glimepiride [Amaryl 4 mg Tablet] 4 mg PO DAILY 12/26/17 Isosorbide Mononitrate [Isosorbide Mononitrate ER] 120 mg PO DAILY 12/26/17 Labetalol HCl [Trandate] 150 mg PO Q12 12/26/17 Levocetirizine Dihydrochloride [Xyzal] 5 mg PO QPM 12/26/17 Metformin HCl [Glucophage] 850 mg PO BID 12/26/17 Multivitamin [Multiple Vitamins] 1 each PO DAILY 12/26/17 Olmesartan Medoxomil [Benicar] 40 mg PO DAILY 12/26/17 Spironolactone [Aldactone 25 mg Tablet] 25 mg PO DAILY 12/26/17 Tamsulosin HCl [Flomax 0.4 mg Cap.sr] 0.4 mg PO QPM 12/26/17 Allergies/Adverse Reactions: bismuth subsalicylate [From Pepto-Bismol] Allergy (Verified 11/14/17 11:03) hydrocodone Adverse Reaction (Verified 12/20/17 12:26) ondansetron [From Zofran] Adverse Reaction (Verified 12/20/17 12:26) oxycodone Adverse Reaction (Verified 12/20/17 12:26) Review of Systems Constitutional: ABSENT: chills, fever(s), headache(s), weight gain, weight loss Eyes: PRESENT: visual disturbances - CAWG Ears: ABSENT: hearing changes Nose, Mouth, and Throat: ABSENT: as per HPI, headache(s), mouth pain, sore throat, vertigo, other Cardiovascular: ABSENT: chest pain, dyspnea on exertion, edema, orthropnea, palpitations Respiratory: ABSENT: cough, hemoptysis Gastrointestinal: PRESENT: nausea. ABSENT: as per HPI, abdominal pain, bloating , coffee ground emesis, constipation, diarrhea, dysphagia, heartburn, hematemesis, hematochezia, melena, vomiting, other Genitourinary: ABSENT: difficulty urinating, dysuria, hematuria Musculoskeletal: ABSENT: joint swelling Integumentary: ABSENT: rash, wounds Neurological: ABSENT: abnormal gait, abnormal speech, confusion, dizziness, focal weakness, syncope Psychiatric: ABSENT: anxiety, depression, homidical ideation, suicidal ideation Endocrine: ABSENT: cold intolerance, heat intolerance, polydipsia, polyuria Hematologic/Lymphatic: ABSENT: easy bleeding, easy bruising, lymphadenopathy Allergic/Immunologic: ABSENT: seasonal rhinorrhea Physical Exam Vital Signs: Temp Pulse Resp BP Pulse Ox 99.3 F 102 H 22 H 169/99 H 95 12/26/17 11:10 12/26/17 11:10 12/26/17 11:10 12/26/17 11:10 12/26/17 11:10 Intake & Output 12/25/17 12/26/17 12/27/17 06:59 06:59 06:59 Intake Total 150 Balance 150 General appearance: PRESENT: morbidly obese Head exam: PRESENT: atraumatic, normocephalic Eye exam: PRESENT: conjunctiva pink, EOMI, PERRLA. ABSENT: scleral icterus Ear exam: PRESENT: normal external ear exam Mouth exam: PRESENT: moist, tongue midline Teeth exam: ABSENT: dental caries, dental tenderness, edentulous, poor dentation , other Throat exam: ABSENT: post pharyngeal erythema, tonsillar erythema, tonsillar exudate, tonsillogmegaly, other Neck exam: PRESENT: full ROM. ABSENT: carotid bruit, JVD, lymphadenopathy, thyromegaly Respiratory exam: PRESENT: clear to auscultation warner Cardiovascular exam: PRESENT: RRR. ABSENT: diastolic murmur, rubs, systolic murmur Pulses: PRESENT: normal dorsalis pedis pul, +2 pedal pulses bilateral Vascular exam: PRESENT: normal capillary refill. ABSENT: pallor GI/Abdominal exam: PRESENT: normal bowel sounds, soft. ABSENT: distended, guarding, mass, organolmegaly, rebound, tenderness Rectal exam: PRESENT: deferred Extremities exam: ABSENT: pedal edema Musculoskeletal exam: PRESENT: normal inspection. ABSENT: tenderness Neurological exam: PRESENT: alert, awake, oriented to person, oriented to place , oriented to time, oriented to situation, CN II-XII grossly intact. ABSENT: motor sensory deficit Psychiatric exam: PRESENT: appropriate affect, normal mood. ABSENT: homicidal ideation, suicidal ideation Skin exam: PRESENT: dry, intact, warm. ABSENT: cyanosis, rash Results Laboratory Results: I reviewed his lab results on [employer] and form significant prt of my medical decision making. Assessment & Plan - Diagnosis (1) Complicated UTI (urinary tract infection) Is this a current diagnosis for this admission?: Yes Plan: See admitting attending physician orders. (2) Kidney stone on left side Is this a current diagnosis for this admission?: Yes Plan: See admitting attending physician orders. (3) Nausea alone Is this a current diagnosis for this admission?: Yes Plan: See admitting attending physician orders. (4) Acute kidney injury Is this a current diagnosis for this admission?: Yes Plan: See admitting attending physician orders. (5) Diabetes mellitus type 2 in obese Is this a current diagnosis for this admission?: Yes Plan: See admitting attending physician orders. (6) Chronic atrial fibrillation Is this a current diagnosis for this admission?: Yes Plan: See admitting attending physician orders. (7) Hypertension Qualifiers: Hypertension type: essential hypertension Qualified Code(s): I10 - Essential (primary) hypertension Is this a current diagnosis for this admission?: Yes Plan: See admitting attending physician orders. (8) HLD (hyperlipidemia) Qualifiers: Hyperlipidemia type: pure hypercholesterolemia Qualified Code(s): E78.00 - Pure hypercholesterolemia, unspecified; E78.0 - Pure hypercholesterolemia Is this a current diagnosis for this admission?: Yes Plan: See admitting attending physician orders. (9) BPH loc w urin obs/LUTS Is this a current diagnosis for this admission?: Yes Plan: See admitting attending physician orders. (10) Morbid obesity Is this a current diagnosis for this admission?: Yes Plan: See admitting attending physician orders. - Time Time Spent: 50 to 70 Minutes Medications reviewed and adjusted accordingly: Yes Anticipated discharge: Home - Inpatient Certification Based on my medical assessment, after consideration of the patient's comorbidities, presenting symptoms, or acuity I expect that the services needed warrant INPATIENT care.: Yes I certify that my determination is in accordance with my understanding of Medicare's requirements for reasonable and necessary INPATIENT services [42 CFR 412.3e].: Yes Medical Necessity: Need Close Monitoring Due to Risk of Patient Decompensation, Need For IV Fluids, Need For Continuous Telemetry Monitoring, Need for IV Antibiotics, Risk of Complication if Not Cared For in Hospital Post Hospital Care: D/C Maintenance Representative Documentation - Plan Summary Plan Summary: See admitting attending physician orders.
[2017-12-26] MEDS ORDERED: DEXTROSE 40% GEL 15 GM TUBE PO PRN ×2 (15:10)
[2017-12-26] MEDS ORDERED: DEXTROSE 50%-WATER 25 GM/50 ML DISP.SYRIN IV PRN ×2 (15:10)
[2017-12-26] MEDS ORDERED: GLUCAGON,HUMAN RECOMB 1 MG INJ IM PRN (15:10)
[2017-12-26] MEDS ORDERED: VANCOMYCIN HCL 0 MG in DEXTROSE 5%-WATER 250 ML IV NR (15:15)
[2017-12-26] MEDS: IMIPENEM/CILASTATIN SODIUM 500 MG in NORMAL SALINE 100 ML IV SCH (18:12)
[2017-12-26] MEDS: CETIRIZINE 5 MG TABLET PO SCH (18:13)
[2017-12-26] MEDS: TAMSULOSIN HCL 0.4 MG CAP.SR.24H PO SCH (18:13)
[2017-12-26] MEDS: METFORMIN HCL 850 MG TABLET PO SCH (18:14)
[2017-12-26] MEDS: ACETAMINOPHEN 325 MG TABLET PO PRN (19:07)
[2017-12-26] MEDS ORDERED: (PENDING PHARMACY ID) (Dofetilide [Tikosyn] 250 MCG) PO SCH (22:00)
[2017-12-26] MEDS ORDERED: LABETALOL HCL PO SCH (22:00)
[2017-12-26] MEDS: ATORVASTATIN CALCIUM 10 MG TABLET PO SCH (22:54)
[2017-12-26] MEDS: DOFETILIDE 125 MCG CAPSULE PO SCH (22:54)
[2017-12-26] MEDS: LABETALOL HCL 200 MG TABLET PO SCH (22:54)
[2017-12-26] MEDS: DOXAZOSIN MESYLATE 4 MG TABLET PO SCH (22:55)
[2017-12-26] MEDS: VANCOMYCIN HCL 1,000 MG in DEXTROSE 5%-WATER 250 ML IV SCH (22:55)
[2017-12-26] MEDS: APIXABAN 5 MG TABLET PO SCH (22:55)
[2017-12-27] MEDS: IMIPENEM/CILASTATIN SODIUM 500 MG in NORMAL SALINE 100 ML IV SCH ×4 (00:48→17:38)
[2017-12-27] MEDS: ACETAMINOPHEN 325 MG TABLET PO PRN ×2 (00:56→16:12)
[2017-12-27] MEDS: LANSOPRAZOLE 30 MG TAB.RAP.DR PO SCH (05:22)
[2017-12-27] MEDS: METOCLOPRAMIDE HCL INJ/PF 10 MG/2 ML SDV IV PRN ×3 (08:43→22:36)
--- NOTE | 2017-12-27 08:50 | PDOC PROGRESS REPORT ---
Subjective Progress Note for:: 12/27/17 Subjective:: Patient reported continue episodic nausea but no vomiting. No abdominal pain. No chest pain or difficulty with breathing. There has been intermittent fever. Reason For Visit: COMPLICATED UTI,KIDNEY STONE,NAUSEA,ACUTE KIDNEY Physical Exam Vital Signs: Temp Pulse Resp BP Pulse Ox 98.7 F 101 H 20 154/96 H 98 12/27/17 07:13 12/27/17 07:13 12/27/17 07:13 12/27/17 07:13 12/27/17 07:13 Intake & Output 12/26/17 12/27/17 12/28/17 06:59 06:59 06:59 Intake Total 1754 Output Total 275 Balance 1479 Weight 140.7 kg General appearance: PRESENT: no acute distress, morbidly obese Head exam: PRESENT: atraumatic, normocephalic Eye exam: PRESENT: conjunctiva pink, EOMI, PERRLA. ABSENT: scleral icterus Ear exam: PRESENT: normal external ear exam Mouth exam: PRESENT: moist Respiratory exam: PRESENT: clear to auscultation warner Cardiovascular exam: PRESENT: RRR. ABSENT: diastolic murmur, rubs, systolic murmur Vascular exam: ABSENT: pallor GI/Abdominal exam: PRESENT: normal bowel sounds, soft. ABSENT: distended, guarding, mass, organolmegaly, rebound, tenderness Extremities exam: ABSENT: pedal edema Musculoskeletal exam: PRESENT: normal inspection Neurological exam: PRESENT: alert, awake, oriented to person, oriented to place , oriented to time, oriented to situation, CN II-XII grossly intact. ABSENT: motor sensory deficit Psychiatric exam: PRESENT: appropriate affect, normal mood. ABSENT: homicidal ideation, suicidal ideation Skin exam: PRESENT: dry, intact, warm. ABSENT: cyanosis, rash Results Laboratory Results: I reviewed his recent lab results on [employer] and form significant part on my medical decision making at this time. Assessment & Plan - Diagnosis (1) Gram-positive cocci bacteremia Is this a current diagnosis for this admission?: Yes Plan: Maintain on current antibiotic coverage including IV Primaxin and Vancomycin for complicated UTI with renal stone. (2) Complicated UTI (urinary tract infection) Is this a current diagnosis for this admission?: Yes Plan: Continue IV Vancomycin and Primaxin coverage. (3) Kidney stone on left side Is this a current diagnosis for this admission?: Yes Plan: Continue current medical management. (4) Nausea alone Is this a current diagnosis for this admission?: Yes (5) Acute kidney injury Is this a current diagnosis for this admission?: Yes Plan: Improving renal indices. (6) Diabetes mellitus type 2 in obese Is this a current diagnosis for this admission?: Yes Plan: Continue current medication management. (7) Chronic atrial fibrillation Is this a current diagnosis for this admission?: Yes Plan: Continue current medication management. (8) Hypertension Qualifiers: Hypertension type: essential hypertension Qualified Code(s): I10 - Essential (primary) hypertension Is this a current diagnosis for this admission?: Yes Plan: Continue current medication management. (9) HLD (hyperlipidemia) Qualifiers: Hyperlipidemia type: pure hypercholesterolemia Qualified Code(s): E78.00 - Pure hypercholesterolemia, unspecified; E78.0 - Pure hypercholesterolemia Is this a current diagnosis for this admission?: Yes Plan: Continue current medication management. (10) BPH loc w urin obs/LUTS Is this a current diagnosis for this admission?: Yes Plan: Continue current medication management. (11) Morbid obesity Is this a current diagnosis for this admission?: Yes Plan: Continue current medication management. - Time Time Spent with patient: 25-34 minutes Medications reviewed and adjusted accordingly: Yes Anticipated discharge: Home Within: Other - Inpatient Certification Based on my medical assessment, after consideration of the patient's comorbidities, presenting symptoms, or acuity I expect that the services needed warrant INPATIENT care.: Yes I certify that my determination is in accordance with my understanding of Medicare's requirements for reasonable and necessary INPATIENT services [42 CFR 412.3e].: Yes Medical Necessity: Need Close Monitoring Due to Risk of Patient Decompensation, Need For IV Fluids, Need For Continuous Telemetry Monitoring, Need for IV Antibiotics, Risk of Complication if Not Cared For in Hospital Post Hospital Care: D/C Kelly Machine Operator Documentation - Plan Summary Plan Summary: Continue current IV antibiotic therapy and medication management.
[2017-12-27] MEDS: GLIMEPIRIDE 4 MG TABLET PO SCH (08:56)
[2017-12-27] MEDS: METFORMIN HCL 850 MG TABLET PO SCH ×2 (08:56→17:40)
[2017-12-27] MEDS: FLUTICASONE NASAL SPRAY 50 MCG/SPRY 120 SPRAY/16 GM NASL SCH (09:14)
[2017-12-27] MEDS: DOFETILIDE 125 MCG CAPSULE PO SCH ×2 (09:16→22:30)
[2017-12-27] MEDS: SPIRONOLACTONE 25 MG TABLET PO SCH (09:19)
[2017-12-27] MEDS: MULTIVITAMIN TABLET PO SCH (09:19)
[2017-12-27] MEDS: ISOSORBIDE MONONITRATE 60 MG TAB.ER.24H PO SCH (09:21)
[2017-12-27] MEDS: DILTIAZEM HCL 180 MG CAPSULE.CR PO SCH (09:22)
[2017-12-27] MEDS: LOSARTAN POTASSIUM 50 MG TABLET PO SCH (09:23)
[2017-12-27] MEDS: LABETALOL HCL 200 MG TABLET PO SCH ×2 (09:24→22:30)
[2017-12-27] MEDS: APIXABAN 5 MG TABLET PO SCH ×2 (09:24→22:30)
[2017-12-27] MEDS: VANCOMYCIN HCL 1,000 MG in DEXTROSE 5%-WATER 250 ML IV SCH ×2 (09:27→22:30)
[2017-12-27] MEDS ORDERED: (PENDING PHARMACY ID) (Olmesartan Medoxomil [Benicar] 40 MG) PO SCH (10:00)
[2017-12-27] MEDS ORDERED: (PENDING PHARMACY ID) (Isosorbide Mononitrate [Isosorbide Mononitrate Er] 120 MG) PO SCH (10:00)
[2017-12-27] MEDS ORDERED: (PENDING PHARMACY ID) (Diltiazem Hcl [Diltiazem 24hr Er] 360 MG) PO SCH (10:00)
[2017-12-27 10:13] LABS: ABSOLUTE EOSINOPHILS # (AUTO) 0.2 10^3/uL (0.0-0.6); ABSOLUTE LYMPHOCYTES (AUTO) 0.9 10^3/uL (0.5-4.7); ABSOLUTE MONOCYTES (AUTO) 1.5 10^3/uL (0.1-1.4); ABSOLUTE NEUT (AUTO) 10.3 10^3/uL (1.7-8.2); BASOPHILS % (AUTO) 0.2 % (0-2); EOSINOPHILS % (AUTO) 1.2 % (0-6); HEMOGLOBIN 12.4 g/dL (13.5-17.0); MEAN CORPUSCULAR HEMOGLOBIN 27.9 pg (27.0-33.4); MEAN CORPUSCULAR HGB CONC 33.4 g/dL (32.0-36.0); MEAN CORPUSCULAR VOLUME 84 fl (80-97); MONOCYTES % (AUTO) 11.4 % (3-13); PLATELET COUNT 200 10^3/uL (150-450); RED BLOOD COUNT 4.43 10^6/uL (4.35-5.55); SEGMENTED NEUTROPHILS % (AUTO) 80.2 % (42-78); TOTAL CELLS COUNTED % (AUTO) 100 %; WHITE BLOOD COUNT 12.8 10^3/uL (4.0-10.5)
[2017-12-27 10:37] LABS: ANION GAP 13 (5-19); BLOOD UREA NITROGEN 16 mg/dL (7-20); CALCIUM 8.1 mg/dL (8.4-10.2); CARBON DIOXIDE 23 mmol/L (22-30); CHLORIDE 98 mmol/L (98-107); GLUCOSE 154 mg/dL (75-110); POTASSIUM 3.9 mmol/L (3.6-5.0); SODIUM 133.6 mmol/L (137-145)
[2017-12-27] MEDS: TAMSULOSIN HCL 0.4 MG CAP.SR.24H PO SCH (17:39)
[2017-12-27] MEDS: CETIRIZINE 5 MG TABLET PO SCH (17:39)
[2017-12-27] MEDS: DOXAZOSIN MESYLATE 4 MG TABLET PO SCH (22:29)
[2017-12-27] MEDS: ATORVASTATIN CALCIUM 10 MG TABLET PO SCH (22:30)
[2017-12-27] MEDS: INSULIN LISPRO 100 UNIT/ML 3 ML VIAL SUBCUT PRN (22:31)
[2017-12-28] MEDS: IMIPENEM/CILASTATIN SODIUM 500 MG in NORMAL SALINE 100 ML IV SCH ×5 (00:26→23:37)
[2017-12-28 09:21] LABS: ABSOLUTE EOSINOPHILS # (AUTO) 0.4 10^3/uL (0.0-0.6); ABSOLUTE LYMPHOCYTES (AUTO) 1.3 10^3/uL (0.5-4.7); ABSOLUTE MONOCYTES (AUTO) 1.6 10^3/uL (0.1-1.4); ABSOLUTE NEUT (AUTO) 8.3 10^3/uL (1.7-8.2); BASOPHILS % (AUTO) 0.3 % (0-2); EOSINOPHILS % (AUTO) 3.1 % (0-6); HEMATOCRIT 35.4 % (37.9-51.0); HEMOGLOBIN 11.9 g/dL (13.5-17.0); LYMPHOCYTES % (AUTO) 11.2 % (13-45); MEAN CORPUSCULAR HGB CONC 33.7 g/dL (32.0-36.0); MEAN CORPUSCULAR VOLUME 83 fl (80-97); MONOCYTES % (AUTO) 13.7 % (3-13); PLATELET COUNT 224 10^3/uL (150-450); RED BLOOD COUNT 4.25 10^6/uL (4.35-5.55); RED CELL DISTRIBUTION WIDTH 14.1 % (11.5-14.0); SEGMENTED NEUTROPHILS % (AUTO) 71.7 % (42-78); TOTAL CELLS COUNTED % (AUTO) 100 %; WHITE BLOOD COUNT 11.6 10^3/uL (4.0-10.5)
[2017-12-28 09:29] LABS: ANION GAP 11 (5-19); BLOOD UREA NITROGEN 26 mg/dL (7-20); CALCIUM 8.1 mg/dL (8.4-10.2); CARBON DIOXIDE 22 mmol/L (22-30); CHLORIDE 101 mmol/L (98-107); GLUCOSE 83 mg/dL (75-110); POTASSIUM 3.7 mmol/L (3.6-5.0); SODIUM 134.3 mmol/L (137-145)
[2017-12-28] MEDS: GLIMEPIRIDE 4 MG TABLET PO SCH (10:34)
[2017-12-28] MEDS: LANSOPRAZOLE 30 MG TAB.RAP.DR PO SCH (10:34)
[2017-12-28] MEDS: METFORMIN HCL 850 MG TABLET PO SCH ×2 (10:35→17:56)
[2017-12-28] MEDS: DILTIAZEM HCL 180 MG CAPSULE.CR PO SCH (10:41)
[2017-12-28] MEDS: APIXABAN 5 MG TABLET PO SCH ×2 (10:41→21:53)
[2017-12-28] MEDS: FLUTICASONE NASAL SPRAY 50 MCG/SPRY 120 SPRAY/16 GM NASL SCH (10:42)
[2017-12-28] MEDS: DOFETILIDE 125 MCG CAPSULE PO SCH ×2 (10:43→21:55)
[2017-12-28] MEDS: LABETALOL HCL 200 MG TABLET PO SCH ×2 (10:44→21:56)
[2017-12-28] MEDS: VANCOMYCIN HCL 1,000 MG in DEXTROSE 5%-WATER 250 ML IV SCH (11:01)
[2017-12-28] MEDS: SPIRONOLACTONE 25 MG TABLET PO SCH (11:02)
[2017-12-28] MEDS: LOSARTAN POTASSIUM 50 MG TABLET PO SCH (11:02)
[2017-12-28] MEDS: MULTIVITAMIN TABLET PO SCH (11:02)
[2017-12-28] MEDS: METOCLOPRAMIDE HCL INJ/PF 10 MG/2 ML SDV IV PRN (11:05)
[2017-12-28] MEDS: ISOSORBIDE MONONITRATE 60 MG TAB.ER.24H PO SCH (11:12)
[2017-12-28 11:29] LABS: VANCOMYCIN,TROUGH 8.2 ug/mL (5.0-20.0)
[2017-12-28] MEDS: CETIRIZINE 5 MG TABLET PO SCH (17:56)
[2017-12-28] MEDS: TAMSULOSIN HCL 0.4 MG CAP.SR.24H PO SCH (17:56)
--- NOTE | 2017-12-28 17:58 | PDOC PROGRESS REPORT ---
Subjective Progress Note for:: 12/28/17 Subjective:: No chest pain or difficulty with breathing. Patient denied abdominal pain or vomiting but continue to report intermittent nausea. Tolerating oral feeding. No diarrhea or constipation. Reason For Visit: COMPLICATED UTI,KIDNEY STONE,NAUSEA,ACUTE KIDNEY Physical Exam Vital Signs: Temp Pulse Resp BP Pulse Ox 99.0 F 74 16 129/64 H 96 12/28/17 16:04 12/28/17 16:04 12/28/17 16:04 12/28/17 16:04 12/28/17 16:04 Intake & Output 12/27/17 12/28/17 12/29/17 06:59 06:59 06:59 Intake Total 1854 1616 812 Output Total 275 Balance 1579 1616 812 Weight 140.7 kg 140.7 kg Physical Exam: General appearance: PRESENT: no acute distress, morbidly obese Head exam: PRESENT: atraumatic, normocephalic Eye exam: PRESENT: conjunctiva pink, EOMI, PERRLA. ABSENT: scleral icterus Ear exam: PRESENT: normal external ear exam Mouth exam: PRESENT: moist Respiratory exam: PRESENT: clear to auscultation warner Cardiovascular exam: PRESENT: RRR. ABSENT: diastolic murmur, rubs, systolic murmur Vascular exam: ABSENT: pallor GI/Abdominal exam: PRESENT: normal bowel sounds, soft. ABSENT: distended, guarding, mass, organomegaly, rebound, tenderness Extremities exam: ABSENT: pedal edema Musculoskeletal exam: PRESENT: normal inspection Neurological exam: PRESENT: alert, awake, oriented to person, oriented to place , oriented to time, oriented to situation, CN II-XII grossly intact. ABSENT: motor sensory deficit Psychiatric exam: PRESENT: appropriate affect, normal mood. ABSENT: homicidal ideation, suicidal ideation Skin exam: PRESENT: dry, intact, warm. ABSENT: cyanosis, rash Results Laboratory Results: 12/28/17 05:09 12/28/17 10:19 12/28/17 12/28/17 12/28/17 05:09 05:09 10:19 WBC 11.6 H RBC 4.25 L Hgb 11.9 L Hct 35.4 L MCV 83 MCH 28.0 MCHC 33.7 RDW 14.1 H Plt Count 224 Seg Neutrophils % 71.7 Lymphocytes % 11.2 L Monocytes % 13.7 H Eosinophils % 3.1 Basophils % 0.3 Absolute Neutrophils 8.3 H Absolute Lymphocytes 1.3 Absolute Monocytes 1.6 H Absolute Eosinophils 0.4 Absolute Basophils 0.0 Sodium 134.3 L Potassium 3.7 Chloride 101 Carbon Dioxide 22 Anion Gap 11 BUN 26 H Creatinine 1.41 H 1.33 H Est GFR ( Amer) > 60 > 60 Est GFR (Non-Af Amer) 51 L 54 L Glucose 83 Calcium 8.1 L Assessment & Plan - Diagnosis (1) Gram-positive cocci bacteremia Is this a current diagnosis for this admission?: Yes Plan: Continue IV Vancomycin and Zosyn coverage. Follow up on blood culture organism identification and sensitivity report. (2) Enterococcus faecalis infection Is this a current diagnosis for this admission?: Yes Plan: Continue IV Vancomycin and Zosyn coverage. (3) Complicated UTI (urinary tract infection) Is this a current diagnosis for this admission?: Yes Plan: Continue IV Vancomycin and Zosyn coverage. (4) Kidney stone on left side Is this a current diagnosis for this admission?: Yes (5) Nausea alone Is this a current diagnosis for this admission?: Yes (6) Acute kidney injury Is this a current diagnosis for this admission?: Yes (7) Diabetes mellitus type 2 in obese Is this a current diagnosis for this admission?: Yes (8) Chronic atrial fibrillation Is this a current diagnosis for this admission?: Yes (9) Hypertension Qualifiers: Hypertension type: essential hypertension Qualified Code(s): I10 - Essential (primary) hypertension Is this a current diagnosis for this admission?: Yes (10) HLD (hyperlipidemia) Qualifiers: Hyperlipidemia type: pure hypercholesterolemia Qualified Code(s): E78.00 - Pure hypercholesterolemia, unspecified; E78.0 - Pure hypercholesterolemia Is this a current diagnosis for this admission?: Yes (11) BPH loc w urin obs/LUTS Is this a current diagnosis for this admission?: Yes (12) Morbid obesity Is this a current diagnosis for this admission?: Yes - Time Time Spent with patient: 25-34 minutes Medications reviewed and adjusted accordingly: Yes Anticipated discharge: Home Within: Other - Inpatient Certification Based on my medical assessment, after consideration of the patient's comorbidities, presenting symptoms, or acuity I expect that the services needed warrant INPATIENT care.: Yes I certify that my determination is in accordance with my understanding of Medicare's requirements for reasonable and necessary INPATIENT services [42 CFR 412.3e].: Yes Medical Necessity: Need Close Monitoring Due to Risk of Patient Decompensation, Need For IV Fluids, Need For Continuous Telemetry Monitoring, Need for IV Antibiotics, Risk of Complication if Not Cared For in Hospital Post Hospital Care: D/C Fur Machine Operator Documentation - Plan Summary Plan Summary: See attending physician orders. Follow up on blood culture findings.
[2017-12-28] MEDS: ATORVASTATIN CALCIUM 10 MG TABLET PO SCH (21:53)
[2017-12-28] MEDS: DOXAZOSIN MESYLATE 4 MG TABLET PO SCH (21:53)
[2017-12-28] MEDS: VANCOMYCIN HCL 1,250 MG in DEXTROSE 5%-WATER 250 ML IV SCH (21:54)
[2017-12-29] MEDS: METOCLOPRAMIDE HCL INJ/PF 10 MG/2 ML SDV IV PRN (03:44)
[2017-12-29] MEDS: LANSOPRAZOLE 30 MG TAB.RAP.DR PO SCH (05:19)
[2017-12-29] MEDS: IMIPENEM/CILASTATIN SODIUM 500 MG in NORMAL SALINE 100 ML IV SCH ×3 (05:19→17:13)
[2017-12-29] MEDS: GLIMEPIRIDE 4 MG TABLET PO SCH (09:06)
[2017-12-29] MEDS: METFORMIN HCL 850 MG TABLET PO SCH ×2 (09:06→17:12)
[2017-12-29] MEDS: VANCOMYCIN HCL 1,250 MG in DEXTROSE 5%-WATER 250 ML IV SCH ×2 (10:17→21:54)
[2017-12-29] MEDS: LABETALOL HCL 200 MG TABLET PO SCH ×2 (10:18→21:55)
[2017-12-29] MEDS: DOFETILIDE 125 MCG CAPSULE PO SCH ×2 (10:19→21:55)
[2017-12-29] MEDS: ISOSORBIDE MONONITRATE 60 MG TAB.ER.24H PO SCH (10:20)
[2017-12-29] MEDS: MULTIVITAMIN TABLET PO SCH (10:20)
[2017-12-29] MEDS: LOSARTAN POTASSIUM 50 MG TABLET PO SCH (10:20)
[2017-12-29] MEDS: APIXABAN 5 MG TABLET PO SCH ×2 (10:20→21:54)
[2017-12-29] MEDS: DILTIAZEM HCL 180 MG CAPSULE.CR PO SCH (10:21)
[2017-12-29] MEDS: FLUTICASONE NASAL SPRAY 50 MCG/SPRY 120 SPRAY/16 GM NASL SCH (10:23)
[2017-12-29] MEDS: SPIRONOLACTONE 25 MG TABLET PO SCH (10:23)
--- NOTE | 2017-12-29 15:07 | PDOC PROGRESS REPORT ---
Subjective Progress Note for:: 12/29/17 Subjective:: No chest pain or difficulty with breathing. Patient denied abdominal pain or vomiting. Patient continue to experience intermittent nausea that particularly wake him up from his sleep. There is concern about possible gallbladder disease process. Reason For Visit: COMPLICATED UTI,KIDNEY STONE,NAUSEA,ACUTE KIDNEY Physical Exam Vital Signs: Temp Pulse Resp BP Pulse Ox 98.1 F 89 16 152/86 H 98 12/29/17 11:49 12/29/17 11:49 12/29/17 11:49 12/29/17 11:49 12/29/17 11:49 Intake & Output 12/28/17 12/29/17 12/30/17 06:59 06:59 06:59 Intake Total 1616 2042 250 Balance 1616 2042 250 Weight 140.7 kg 148.1 kg Physical Exam: General appearance: PRESENT: no acute distress, morbidly obese Head exam: PRESENT: atraumatic, normocephalic Eye exam: PRESENT: conjunctiva pink, EOMI, PERRLA. ABSENT: scleral icterus Ear exam: PRESENT: normal external ear exam Mouth exam: PRESENT: moist Respiratory exam: PRESENT: clear to auscultation warner Cardiovascular exam: PRESENT: RRR. ABSENT: diastolic murmur, rubs, systolic murmur Vascular exam: ABSENT: pallor GI/Abdominal exam: PRESENT: normal bowel sounds, soft. ABSENT: distended, guarding, mass, organomegaly, rebound, tenderness Extremities exam: ABSENT: pedal edema Musculoskeletal exam: PRESENT: normal inspection Neurological exam: PRESENT: alert, awake, oriented to person, oriented to place , oriented to time, oriented to situation, CN II-XII grossly intact. ABSENT: motor sensory deficit Psychiatric exam: PRESENT: appropriate affect, normal mood. ABSENT: homicidal ideation, suicidal ideation Skin exam: PRESENT: dry, intact, warm. ABSENT: cyanosis, rash Results Laboratory Results: 12/28/17 05:09 12/28/17 10:19 Assessment & Plan - Diagnosis (1) Gram-positive cocci bacteremia Is this a current diagnosis for this admission?: Yes Plan: Very likely E. Faecalis from discussion with bacteriology lab staff. Continue current antibiotic coverage pending official culture organism identification and sensitivity report. (2) Enterococcus faecalis infection Is this a current diagnosis for this admission?: Yes (3) Complicated UTI (urinary tract infection) Is this a current diagnosis for this admission?: Yes (4) Kidney stone on left side Is this a current diagnosis for this admission?: Yes (5) Nausea alone Is this a current diagnosis for this admission?: Yes (6) Acute kidney injury Is this a current diagnosis for this admission?: Yes (7) Diabetes mellitus type 2 in obese Is this a current diagnosis for this admission?: Yes (8) Chronic atrial fibrillation Is this a current diagnosis for this admission?: Yes (9) Hypertension Qualifiers: Hypertension type: essential hypertension Qualified Code(s): I10 - Essential (primary) hypertension Is this a current diagnosis for this admission?: Yes (10) HLD (hyperlipidemia) Qualifiers: Hyperlipidemia type: pure hypercholesterolemia Qualified Code(s): E78.00 - Pure hypercholesterolemia, unspecified; E78.0 - Pure hypercholesterolemia Is this a current diagnosis for this admission?: Yes (11) BPH loc w urin obs/LUTS Is this a current diagnosis for this admission?: Yes (12) Morbid obesity Is this a current diagnosis for this admission?: Yes - Time Time Spent with patient: 25-34 minutes Medications reviewed and adjusted accordingly: Yes Anticipated discharge: Home Within: Other - Inpatient Certification Based on my medical assessment, after consideration of the patient's comorbidities, presenting symptoms, or acuity I expect that the services needed warrant INPATIENT care.: Yes I certify that my determination is in accordance with my understanding of Medicare's requirements for reasonable and necessary INPATIENT services [42 CFR 412.3e].: Yes Medical Necessity: Need Close Monitoring Due to Risk of Patient Decompensation, Need For IV Fluids, Need For Continuous Telemetry Monitoring, Need for IV Antibiotics, Risk of Complication if Not Cared For in Hospital Post Hospital Care: D/C Hat Measurer Documentation - Plan Summary Plan Summary: Continue all current medication management. Obtain abdominal ultrasound evaluation for nausea with consideration of gallstone disease and further evaluation of his renal stones.
[2017-12-29] MEDS: CETIRIZINE 5 MG TABLET PO SCH (17:13)
[2017-12-29] MEDS: TAMSULOSIN HCL 0.4 MG CAP.SR.24H PO SCH (17:13)
[2017-12-29] MEDS: ATORVASTATIN CALCIUM 10 MG TABLET PO SCH (21:54)
[2017-12-29] MEDS: DOXAZOSIN MESYLATE 4 MG TABLET PO SCH (21:55)
[2017-12-30] MEDS: IMIPENEM/CILASTATIN SODIUM 500 MG in NORMAL SALINE 100 ML IV SCH ×2 (00:40→05:58)
[2017-12-30] MEDS: METOCLOPRAMIDE HCL INJ/PF 10 MG/2 ML SDV IV PRN (03:29)
--- NOTE | 2017-12-30 08:30 | RADIOLOGY REPORT (SQ) ---
EXAM DESCRIPTION: U/S ABDOMEN COMPLETE W/DOPPLER COMPLETED DATE/TIME: 12/30/2017 7:02 am REASON FOR STUDY: Nausea, r/o Gallbladder and Renal stones, Obesity COMPARISON: Renal ultrasound 06/24/2014. CT renal 11/14/2017. TECHNIQUE: Dynamic and static grayscale images acquired of the abdomen and recorded on PACS. Additio nal selected color Doppler and spectral images recorded. LIMITATIONS: None. FINDINGS: PANCREAS: Not well seen. LIVER: Increased echogenicity of hepatic parenchyma consistent with fatty infiltration the liver prev iously noted. The liver is normal in size measuring 15.6 cm. LIVER VASCULATURE: Normal directional flow of the main portal vein and hepatic veins. GALLBLADDER: No abnormality of the gallbladder. The gallbladder wall measures 1.9 mm. ULTRASOUND-DETECTED HERNANDEZ'S SIGN: Negative. INTRAHEPATIC DUCTS AND COMMON DUCT: CBD measures 2.5 mm. Intrahepatic ducts normal caliber. No filli ng defects. INFERIOR VENA CAVA: Not seen due to bowel gas. AORTA: Not well seen. The mid abdominal aorta measures 1.8 cm in AP diameter and distally 1.4 cm. RIGHT KIDNEY: The right kidney measures 15.1 x 5.9 by 6.8 cm. , burden again noted in mid right kidn ey as seen on prior ultrasound and CT. LEFT KIDNEY: The left kidney measures 14.6 x 7 by 6.6 cm. Mild hydronephrosis. . SPLEEN: The spleen demonstrates normal echogenicity measuring 12.7 cm. IMPRESSION: 1. Fatty infiltration the liver. Left hydronephrosis. TECHNICAL DOCUMENTATION: JOB ID: [id number] [employer]- All Rights Reserved Reading location - IP/workstation name: [email or web address]
[2017-12-30] MEDS: METFORMIN HCL 850 MG TABLET PO SCH ×2 (09:12→18:20)
[2017-12-30] MEDS: DOFETILIDE 125 MCG CAPSULE PO SCH ×2 (09:12→21:31)
[2017-12-30] MEDS: ISOSORBIDE MONONITRATE 60 MG TAB.ER.24H PO SCH (09:12)
[2017-12-30] MEDS: DILTIAZEM HCL 180 MG CAPSULE.CR PO SCH (09:12)
[2017-12-30] MEDS: LABETALOL HCL 200 MG TABLET PO SCH ×2 (09:12→21:30)
[2017-12-30] MEDS: APIXABAN 5 MG TABLET PO SCH ×2 (09:13→21:30)
[2017-12-30] MEDS: SPIRONOLACTONE 25 MG TABLET PO SCH (09:13)
[2017-12-30] MEDS: MULTIVITAMIN TABLET PO SCH (09:13)
[2017-12-30] MEDS: LOSARTAN POTASSIUM 50 MG TABLET PO SCH (09:14)
[2017-12-30] MEDS: GLIMEPIRIDE 4 MG TABLET PO SCH (09:14)
[2017-12-30] MEDS: FLUTICASONE NASAL SPRAY 50 MCG/SPRY 120 SPRAY/16 GM NASL SCH (09:15)
[2017-12-30 11:13] LABS: VANCOMYCIN,TROUGH 10.9 ug/mL (5.0-20.0)
[2017-12-30] MEDS: VANCOMYCIN HCL 1,250 MG in DEXTROSE 5%-WATER 250 ML IV SCH (11:43)
--- NOTE | 2017-12-30 14:09 | PDOC PROGRESS REPORT ---
Subjective Progress Note for:: 12/30/17 Subjective:: Patient was seen by the bedside, the blood culture grew Enterococcus faecalis, urine culture grew Enterococcus faecalis, he was admitted for the management of UTI and sepsis, presently on imipenem, the bacteria is very sensitive to ampicillin, imipenem will be discontinued. The ultrasound was done it demonstrated left hydronephrosis, history of kidney stone status post lithotripsy Reason For Visit: COMPLICATED UTI,KIDNEY STONE,NAUSEA,ACUTE KIDNEY Physical Exam Vital Signs: Temp Pulse Resp BP Pulse Ox 98.8 F 76 16 172/81 H 98 12/30/17 07:54 12/30/17 07:54 12/30/17 07:54 12/30/17 07:54 12/30/17 07:54 Intake & Output 12/29/17 12/30/17 12/31/17 06:59 06:59 06:59 Intake Total 2041 2253 Balance 2041 2253 Weight 148.1 kg General appearance: PRESENT: no acute distress Eye exam: PRESENT: PERRLA Respiratory exam: PRESENT: clear to auscultation warner Cardiovascular exam: PRESENT: +S1, +S2 GI/Abdominal exam: PRESENT: soft Neurological exam: PRESENT: alert Results Laboratory Results: 12/28/17 05:09 12/30/17 09:56 12/30/17 09:56 Creatinine 1.01 Est GFR ( Amer) > 60 Est GFR (Non-Af Amer) > 60 Impressions: Abdomen Ultrasound 12/30/17 00:00 IMPRESSION: 1. Fatty infiltration the liver. Left hydronephrosis. Assessment & Plan - Diagnosis (1) Septicemia due to Enterobacter species Is this a current diagnosis for this admission?: Yes Plan: The results of the blood culture was discussed with the patient, presently on imipenem, DC imipenem, start ampicillin, no beta-lactam allergy (2) Urinary tract infection due to Enterococcus Is this a current diagnosis for this admission?: Yes (3) Hydronephrosis Qualifiers: Hydronephrosis type: unspecified Qualified Code(s): N13.30 - Unspecified hydronephrosis Is this a current diagnosis for this admission?: Yes
[2017-12-30] MEDS: INSULIN LISPRO 100 UNIT/ML 3 ML VIAL SUBCUT PRN ×2 (16:27→21:39)
[2017-12-30] MEDS ORDERED: VANCOMYCIN HCL 1,250 MG in DEXTROSE 5%-WATER 250 ML IV SCH (18:00)
[2017-12-30] MEDS: CETIRIZINE 5 MG TABLET PO SCH (18:20)
[2017-12-30] MEDS: AMPICILLIN SODIUM 1 GM in NORMAL SALINE 50 ML IV SCH (18:20)
[2017-12-30] MEDS: TAMSULOSIN HCL 0.4 MG CAP.SR.24H PO SCH (18:20)
[2017-12-30] MEDS: LANSOPRAZOLE 30 MG TAB.RAP.DR PO SCH (20:38)
[2017-12-30] MEDS: ATORVASTATIN CALCIUM 10 MG TABLET PO SCH (21:30)
[2017-12-30] MEDS: DOXAZOSIN MESYLATE 4 MG TABLET PO SCH (21:30)
[2017-12-31] MEDS: AMPICILLIN SODIUM 1 GM in NORMAL SALINE 50 ML IV SCH ×5 (00:13→23:16)
[2017-12-31] MEDS: METOCLOPRAMIDE HCL INJ/PF 10 MG/2 ML SDV IV PRN ×2 (04:14→21:16)
[2017-12-31] MEDS: LANSOPRAZOLE 30 MG TAB.RAP.DR PO SCH (06:40)
[2017-12-31] MEDS: DILTIAZEM HCL 180 MG CAPSULE.CR PO SCH (09:43)
[2017-12-31] MEDS: LOSARTAN POTASSIUM 50 MG TABLET PO SCH (09:44)
[2017-12-31] MEDS: GLIMEPIRIDE 4 MG TABLET PO SCH (09:45)
[2017-12-31] MEDS: SPIRONOLACTONE 25 MG TABLET PO SCH (09:46)
[2017-12-31] MEDS: MULTIVITAMIN TABLET PO SCH (09:46)
[2017-12-31] MEDS: ISOSORBIDE MONONITRATE 60 MG TAB.ER.24H PO SCH (09:46)
[2017-12-31] MEDS: APIXABAN 5 MG TABLET PO SCH ×2 (09:46→21:16)
[2017-12-31] MEDS: METFORMIN HCL 850 MG TABLET PO SCH ×2 (09:47→17:56)
[2017-12-31] MEDS: DOFETILIDE 125 MCG CAPSULE PO SCH ×2 (09:47→21:15)
[2017-12-31] MEDS: FLUTICASONE NASAL SPRAY 50 MCG/SPRY 120 SPRAY/16 GM NASL SCH (09:48)
[2017-12-31] MEDS: LABETALOL HCL 200 MG TABLET PO SCH ×2 (09:54→21:16)
--- NOTE | 2017-12-31 14:02 | PDOC PROGRESS REPORT ---
Subjective Progress Note for:: 12/31/17 Subjective:: He was seen by the bedside, complained of nausea after the administration of IV antibiotic, back pain Reason For Visit: COMPLICATED UTI,KIDNEY STONE,NAUSEA,ACUTE KIDNEY Physical Exam Vital Signs: Temp Pulse Resp BP Pulse Ox 97.7 F 83 16 165/90 H 98 12/31/17 11:57 12/31/17 11:57 12/31/17 11:57 12/31/17 11:57 12/31/17 11:57 Intake & Output 12/30/17 12/31/17 01/01/18 06:59 06:59 06:59 Intake Total 2254 1926 50 Balance 2254 1926 50 Weight 141.7 kg General appearance: PRESENT: no acute distress Head exam: PRESENT: atraumatic, normocephalic Eye exam: PRESENT: conjunctiva pink, EOMI, PERRLA Ear exam: PRESENT: normal external ear exam Neck exam: PRESENT: full ROM Respiratory exam: PRESENT: clear to auscultation warner Cardiovascular exam: PRESENT: RRR, +S1, +S2 Pulses: PRESENT: normal dorsalis pedis pul, +2 pedal pulses bilateral Vascular exam: PRESENT: normal capillary refill GI/Abdominal exam: PRESENT: normal bowel sounds, soft Rectal exam: PRESENT: deferred Neurological exam: PRESENT: alert, awake, oriented to person, oriented to place , oriented to time, oriented to situation, CN II-XII grossly intact Psychiatric exam: PRESENT: appropriate affect, normal mood Skin exam: PRESENT: dry, intact, warm Results Laboratory Results: 12/28/17 05:09 12/30/17 09:56 Impressions: Abdomen Ultrasound 12/30/17 00:00 IMPRESSION: 1. Fatty infiltration the liver. Left hydronephrosis. Assessment & Plan - Diagnosis (1) Septicemia due to Enterobacter species Is this a current diagnosis for this admission?: Yes Plan: Continue IV ampicillin (2) Urinary tract infection due to Enterococcus Is this a current diagnosis for this admission?: Yes (3) Hydronephrosis Qualifiers: Hydronephrosis type: unspecified Qualified Code(s): N13.30 - Unspecified hydronephrosis Is this a current diagnosis for this admission?: Yes (4) Back pain Qualifiers: Back pain location: low back pain Chronicity: acute Back pain laterality : unspecified Sciatica presence: with sciatica Sciatica laterality: sciatica laterality unspecified Qualified Code(s): M54.40 - Lumbago with sciatica, unspecified side Is this a current diagnosis for this admission?: Yes Plan: 4. Opioid as needed
[2017-12-31] MEDS ORDERED: TRAMADOL HCL 50 MG TABLET PO PRN (14:04)
[2017-12-31] MEDS: CETIRIZINE 5 MG TABLET PO SCH (17:56)
[2017-12-31] MEDS: TAMSULOSIN HCL 0.4 MG CAP.SR.24H PO SCH (17:57)
[2017-12-31] MEDS: INSULIN LISPRO 100 UNIT/ML 3 ML VIAL SUBCUT PRN ×2 (17:59→21:27)
[2017-12-31] MEDS: ATORVASTATIN CALCIUM 10 MG TABLET PO SCH (21:15)
[2017-12-31] MEDS: DOXAZOSIN MESYLATE 4 MG TABLET PO SCH (21:15)
[2018-01-01] MEDS: LANSOPRAZOLE 30 MG TAB.RAP.DR PO SCH (05:22)
[2018-01-01] MEDS: AMPICILLIN SODIUM 1 GM in NORMAL SALINE 50 ML IV SCH (05:22)
[2018-01-01] MEDS: LABETALOL HCL 200 MG TABLET PO SCH (09:04)
[2018-01-01] MEDS: METFORMIN HCL 850 MG TABLET PO SCH ×2 (09:05→17:39)
[2018-01-01] MEDS: LOSARTAN POTASSIUM 50 MG TABLET PO SCH (09:05)
[2018-01-01] MEDS: GLIMEPIRIDE 4 MG TABLET PO SCH (09:05)
[2018-01-01] MEDS: DILTIAZEM HCL 180 MG CAPSULE.CR PO SCH (09:05)
[2018-01-01] MEDS: MULTIVITAMIN TABLET PO SCH (09:06)
[2018-01-01] MEDS: DOFETILIDE 125 MCG CAPSULE PO SCH (09:06)
[2018-01-01] MEDS: ISOSORBIDE MONONITRATE 60 MG TAB.ER.24H PO SCH (09:06)
[2018-01-01] MEDS: SPIRONOLACTONE 25 MG TABLET PO SCH (09:06)
[2018-01-01] MEDS: APIXABAN 5 MG TABLET PO SCH (09:06)
[2018-01-01] MEDS: FLUTICASONE NASAL SPRAY 50 MCG/SPRY 120 SPRAY/16 GM NASL SCH (09:07)
[2018-01-01 09:14] LABS: ABSOLUTE BASOPHILS # (AUTO) 0.1 10^3/uL (0.0-0.2); ABSOLUTE EOSINOPHILS # (AUTO) 0.4 10^3/uL (0.0-0.6); ABSOLUTE LYMPHOCYTES (AUTO) 2.2 10^3/uL (0.5-4.7); ABSOLUTE MONOCYTES (AUTO) 1.1 10^3/uL (0.1-1.4); BASOPHILS % (AUTO) 0.6 % (0-2); EOSINOPHILS % (AUTO) 3.5 % (0-6); HEMATOCRIT 35.9 % (37.9-51.0); HEMOGLOBIN 12.1 g/dL (13.5-17.0); MEAN CORPUSCULAR HEMOGLOBIN 27.8 pg (27.0-33.4); MEAN CORPUSCULAR HGB CONC 33.7 g/dL (32.0-36.0); MEAN CORPUSCULAR VOLUME 82 fl (80-97); MONOCYTES % (AUTO) 8.7 % (3-13); PLATELET COUNT 380 10^3/uL (150-450); RED BLOOD COUNT 4.35 10^6/uL (4.35-5.55); RED CELL DISTRIBUTION WIDTH 14.1 % (11.5-14.0); SEGMENTED NEUTROPHILS % (AUTO) 70.2 % (42-78); TOTAL CELLS COUNTED % (AUTO) 100 %; WHITE BLOOD COUNT 12.8 10^3/uL (4.0-10.5)
[2018-01-01 09:41] LABS: ANION GAP 13 (5-19); BLOOD UREA NITROGEN 19 mg/dL (7-20); CALCIUM 9.4 mg/dL (8.4-10.2); CARBON DIOXIDE 26 mmol/L (22-30); CHLORIDE 100 mmol/L (98-107); GLUCOSE 131 mg/dL (75-110); POTASSIUM 4.2 mmol/L (3.6-5.0); SODIUM 138.8 mmol/L (137-145)
[2018-01-01 11:55] VITALS: BP 139/85
[2018-01-01] MEDS: AMPICILLIN TRIHYD 500 MG CAPSULE PO SCH ×2 (12:51→17:39)
[2018-01-01] MEDS: TAMSULOSIN HCL 0.4 MG CAP.SR.24H PO SCH (17:39)
[2018-01-01] MEDS: CETIRIZINE 5 MG TABLET PO SCH (17:39)
[2018-01-01] MEDS: INSULIN LISPRO 100 UNIT/ML 3 ML VIAL SUBCUT PRN (17:39)
--- NOTE | 2018-01-01 18:09 | PDOC DISCHARGE SUMMARY ---
General - Admit/Disc Date/PCP Admission Date/Primary Care Provider: 12/26/17 10:56 CHARLIE MALDONADO Discharge Date: 01/01/18 - Discharge Diagnosis (1) Gram-positive cocci bacteremia Is this a current diagnosis for this admission?: Yes (2) Enterococcus faecalis infection Is this a current diagnosis for this admission?: Yes (3) Complicated UTI (urinary tract infection) Is this a current diagnosis for this admission?: Yes (4) Kidney stone on left side Is this a current diagnosis for this admission?: Yes (5) Nausea alone Is this a current diagnosis for this admission?: Yes (6) Acute kidney injury Is this a current diagnosis for this admission?: Yes (7) Diabetes mellitus type 2 in obese Is this a current diagnosis for this admission?: Yes (8) Chronic atrial fibrillation Is this a current diagnosis for this admission?: Yes (9) Hypertension Is this a current diagnosis for this admission?: Yes (10) HLD (hyperlipidemia) Is this a current diagnosis for this admission?: Yes (11) BPH loc w urin obs/LUTS Is this a current diagnosis for this admission?: Yes (12) Morbid obesity Is this a current diagnosis for this admission?: Yes - Additional Information Resuscitation Status: Full Code Discharge Diet: Cardiac, Diabetic Discharge Activity: Activity As Tolerated Prescriptions: Amoxicillin/Potassium Clav [Amox-Clav 875-125 mg Tablet] 1 each PO BID #14 tablet Metoclopramide HCl [Metoclopramide HCl Odt] 5 mg PO TIDP PRN #30 tab.rapdis PRN Reason: For Nausea/Vomiting Home Medications: Apixaban [Eliquis 5 mg Tablet] 5 mg PO Q12 12/26/17 Atorvastatin Calcium [Lipitor 10 mg Tablet] 10 mg PO QPM 12/26/17 Diltiazem HCl [Diltiazem 24Hr ER] 360 mg PO DAILY 12/26/17 Dofetilide [Tikosyn] 250 mcg PO Q12 12/26/17 Doxazosin Mesylate [Cardura 4 mg Tablet] 4 mg PO QPM 12/26/17 Fluticasone Propionate [Flonase Nasal Landers 50 Mcg/Landers 16 gm] 1 spray NASL DAILY 12/26/17 Glimepiride [Amaryl 4 mg Tablet] 4 mg PO DAILY 12/26/17 Isosorbide Mononitrate [Isosorbide Mononitrate ER] 120 mg PO DAILY 12/26/17 Labetalol HCl [Trandate] 150 mg PO Q12 12/26/17 Levocetirizine Dihydrochloride [Xyzal] 5 mg PO QPM 12/26/17 Metformin HCl [Glucophage] 850 mg PO BID 12/26/17 Multivitamin [Multiple Vitamins] 1 each PO DAILY 12/26/17 Olmesartan Medoxomil [Benicar] 40 mg PO DAILY 12/26/17 Spironolactone [Aldactone 25 mg Tablet] 25 mg PO DAILY 12/26/17 Tamsulosin HCl [Flomax 0.4 mg Cap.sr] 0.4 mg PO QPM 12/26/17 Amoxicillin/Potassium Clav [Amox-Clav 875-125 mg Tablet] 1 each PO BID #14 tablet 01/01/18 Metoclopramide HCl [Metoclopramide HCl Odt] 5 mg PO TIDP PRN #30 tab.rapdis 02/08 History of Present Illness History of Present Illness: LEATHA CAPONE is a 62 year old male known to my practice who presented to the ED with worsening nausea and dry heaving. he denied definite vomiting or abdominal pain. no fever or chills. He denied dysuria, hematuria or flank pain. Patient has history of renal stone with recent lithotripsy and ureteral stent removal since 12/20/2017 without any post removal issue with his urination. he denied any diarrhea or constipation. His morbidities include Hypertension, chronic atrial fibrillation, hyperlipidemia, Diabetes Mellitus Type 2 and Renal stone. His initial evaluation in the ED revealed significant leukocytosis with left shift and urinalysis suggestive of infectious process. He was advised hospitalization for further evaluation and management. Hospital Course Hospital Course: Patient was managed with IV Vancomycin and Primaxin. His urine and blood culture did grew E. Faecalis with penicillin sensitivity. He denied any recurrent fever or chills. His nausea did improved but recurred intermittently. His leukocytosis did improved. No hematuria. His abdominal ultrasound revealed mild left hydronephrosis. He will be discharge home on Augmentin 875/125 mg p.o bid x 7 days. he will need referral to urologist that will be arranged on outpatient Physical Exam Vital Signs: Temp Pulse Resp BP Pulse Ox 98.5 F 84 20 139/85 H 98 01/01/18 11:54 01/01/18 14:00 01/01/18 11:54 01/01/18 11:54 01/01/18 11:54 Intake & Output 12/31/17 01/01/18 01/02/18 06:59 06:59 06:59 Intake Total 1925 2863 500 Balance 1925 2863 500 Weight 141.7 kg 139.7 kg Physical Exam: General appearance: PRESENT: no acute distress, morbidly obese Head exam: PRESENT: atraumatic, normocephalic Eye exam: PRESENT: conjunctiva pink, EOMI, PERRLA. ABSENT: scleral icterus Ear exam: PRESENT: normal external ear exam Mouth exam: PRESENT: moist Respiratory exam: PRESENT: clear to auscultation warner Cardiovascular exam: PRESENT: RRR. ABSENT: diastolic murmur, rubs, systolic murmur Vascular exam: ABSENT: pallor GI/Abdominal exam: PRESENT: normal bowel sounds, soft. ABSENT: distended, guarding, mass, organomegaly, rebound, tenderness Extremities exam: ABSENT: pedal edema Musculoskeletal exam: PRESENT: normal inspection Neurological exam: PRESENT: alert, awake, oriented to person, oriented to place , oriented to time, oriented to situation, CN II-XII grossly intact. ABSENT: motor sensory deficit Psychiatric exam: PRESENT: appropriate affect, normal mood. ABSENT: homicidal ideation, suicidal ideation Skin exam: PRESENT: dry, intact, warm. ABSENT: cyanosis, rash Results Laboratory Results: 01/01/18 08:48 01/01/18 08:48 01/01/18 01/01/18 08:48 08:48 WBC 12.8 H RBC 4.35 Hgb 12.1 L Hct 35.9 L MCV 82 MCH 27.8 MCHC 33.7 RDW 14.1 H Plt Count 380 Seg Neutrophils % 70.2 Lymphocytes % 17.0 Monocytes % 8.7 Eosinophils % 3.5 Basophils % 0.6 Absolute Neutrophils 9.0 H Absolute Lymphocytes 2.2 Absolute Monocytes 1.1 Absolute Eosinophils 0.4 Absolute Basophils 0.1 Sodium 138.8 Potassium 4.2 Chloride 100 Carbon Dioxide 26 Anion Gap 13 BUN 19 Creatinine 0.98 Est GFR ( Amer) > 60 Est GFR (Non-Af Amer) > 60 Glucose 131 H Calcium 9.4 Impressions: Abdomen Ultrasound 12/30/17 00:00 IMPRESSION: 1. Fatty infiltration the liver. Left hydronephrosis. Qualifiers - * PATIENT BEING DISCHARGED WITH ANY OF THE FOLLOWING DIAGNOSIS: No Plan Discharge Plan: Discharge home today with follow up appointments instructed upon discharge.
== END 2018-01-01 18:00 | disposition home or self-care (01) | DRG 872 ==
LOC: ER 06:21 → EH 10:56 → 3W 12:53
PROVIDERS: ADMIT Internal Medicine Geriatric Medicine; ATTEND Internal Medicine Geriatric Medicine
DX: R78.81 Bacteremia (principal); N17.9 Acute kidney failure, unspecified; N39.0 Urinary tract infection, site not specified; Z68.41 Body mass index [BMI] 40.0-44.9, adult; N13.2 Hydronephrosis with renal and ureteral calculous obstruction; B95.2 Enterococcus as the cause of diseases classified elsewhere; I48.2 Chronic atrial fibrillation; I10 Essential (primary) hypertension; E78.5 Hyperlipidemia, unspecified; N40.1 Benign prostatic hyperplasia with lower urinary tract symptoms; M54.40 Lumbago with sciatica, unspecified side; E66.01 Morbid (severe) obesity due to excess calories; E11.9 Type 2 diabetes mellitus without complications; Z79.02 Long term (current) use of antithrombotics/antiplatelets; Z79.899 Other long term (current) drug therapy; Z88.8 Allergy status to other drugs, medicaments and biological substances; Z79.84 Long term (current) use of oral hypoglycemic drugs
CPT/HCPCS: 36415; 76700; 80048; 80053; 80202; 81001; 82565; 82962; 85025; 87040; 87077; 87086; 87088; 87186; 93976; 96361; 96374; 96375; 96376; 99285; J0290; J0743; J1815; J1956; J2765; J3370; J3490; J7030; J7060; L0120

== ENCOUNTER 2018-01-16 06:09 | Emergency (ER) | payer BC ==
[2018-01-16] MEDS ORDERED: NORMAL SALINE 1000 ML 1,000 ML IV ONE (07:45)
[2018-01-16] MEDS ORDERED: METOCLOPRAMIDE HCL INJ/PF 10 MG/2 ML SDV IV ONE (07:45)
--- NOTE | 2018-01-16 08:05 | ER Document Report ---
ED General - General Chief Complaint: Nausea/Vomiting Stated Complaint: NAUSEA AND VOMITING Time Seen by Provider: 01/16/18 07:18 Mode of Arrival: Ambulatory Information source: Patient Notes: Patient is a 62-year-old male who presents with chief complaint of nausea and vomiting 2 days. Patient reports he has vomited at least 7-8 times per day since then. Denies any fevers, abdominal pain or diarrhea. Patient denies any blood in the vomitus or stool. Patient reports that his nausea vomiting has actually been ongoing for about 6 months however it had resolved for the last month. Patient states he has been seen by his primary care provider for this, has had a complete workup and they can never find anything wrong with him. TRAVEL OUTSIDE OF THE [place] IN LAST 30 DAYS: No - Related Data Allergies/Adverse Reactions: bismuth subsalicylate [From Pepto-Bismol] Allergy (Verified 11/14/17 11:03) hydrocodone Adverse Reaction (Verified 12/20/17 12:26) ondansetron [From Zofran] Adverse Reaction (Verified 12/20/17 12:26) oxycodone Adverse Reaction (Verified 12/20/17 12:26) Past Medical History - General Information source: Patient - Social History Smoking Status: Never Smoker Family History: Reviewed & Not Pertinent Patient has suicidal ideation: No Patient has homicidal ideation: No - Past Medical History Cardiac Medical History: Reports: Hx Atrial Fibrillation - ablation, Hx Hypercholesterolemia, Hx Hypertension Denies: Hx Coronary Artery Disease, Hx Heart Attack Pulmonary Medical History: Denies: Hx Asthma, Hx Bronchitis, Hx COPD, Hx Pneumonia Neurological Medical History: Denies: Hx Cerebrovascular Accident, Hx Seizures Endocrine Medical History: Reports: Hx Diabetes Mellitus Type 2 Renal/ Medical History: Reports: Hx Kidney Stones. Denies: Hx Peritoneal Dialysis GI Medical History: Reports: Hx Diverticulitis Musculoskeletal Medical History: Denies Hx Arthritis Past Surgical History: Reports: Hx Cardiac Surgery - ablation, Hx Tonsillectomy - Immunizations Hx Diphtheria, Pertussis, Tetanus Vaccination: Yes Hx Pneumococcal Vaccination: 04/24/15 Review of Systems - Review of Systems Gastrointestinal: Nausea, Vomiting -: Yes All other systems reviewed and negative Physical Exam - Vital signs Vitals: Temp Pulse BP Pulse Ox 98.2 F 86 129/82 H 93 01/16/18 06:17 01/16/18 06:17 01/16/18 06:17 01/16/18 06:17 - Notes Notes: PHYSICAL EXAMINATION: GENERAL: Well-appearing, well-nourished and in no acute distress. HEAD: Atraumatic, normocephalic. EYES: Pupils equal round and reactive to light, extraocular movements intact, sclera anicteric, conjunctiva are normal. ENT: Nares patent, oropharynx clear without exudates. Moist mucous membranes. NECK: Normal range of motion, supple without lymphadenopathy LUNGS: Breath sounds clear to auscultation bilaterally and equal. No wheezes rales or rhonchi. HEART: Regular rate and rhythm without murmurs ABDOMEN: Soft, nontender, nondistended abdomen. No guarding, no rebound. No masses appreciated. Musculoskeletal: Normal range of motion, no pitting or edema. No cyanosis. NEUROLOGICAL: Cranial nerves grossly intact. Normal speech, normal gait. Normal sensory, motor exams PSYCH: Normal mood, normal affect. SKIN: Warm, Dry, normal turgor, no rashes or lesions noted. Course - Re-evaluation Re-evalutation: CBC with mild leukocytosis. Comprehensive metabolic panel are unremarkable. Urinalysis with leukocyte esterase 140 white blood cells. Patient is stable and without hypotension or tachycardia. Patient does not appear to be septic. Based upon patient's most recent urine culture patient will be placed on Macrobid for his urinary tract infection. Patient already has follow-up appointment scheduled with both his primary care doctor as well as urology in [place]. - Vital Signs Vital signs: Temp Pulse Resp BP Pulse Ox 98.3 F 91 16 168/94 H 96 01/16/18 13:40 01/16/18 13:40 01/16/18 13:40 01/16/18 13:40 01/16/18 13:40 - Laboratory Result Diagrams: 01/16/18 09:09 01/16/18 09:09 Laboratory results interpreted by me: 01/16/18 01/16/18 01/16/18 09:09 09:09 11:10 WBC 12.8 H Hgb 13.4 L RDW 14.3 H Lymphocytes % 11.4 L Absolute Neutrophils 9.5 H Absolute Monocytes 1.6 H Sodium 134.5 L Glucose 145 H Total Bilirubin 1.7 H Direct Bilirubin 0.7 H Urine Ketones TRACE H Urine Blood MODERATE H Urine Urobilinogen 2.0 H Ur Leukocyte Esterase LARGE H Discharge - Discharge Clinical Impression: Urinary tract bacterial infections Condition: Stable Disposition: HOME, SELF-CARE Additional Instructions: URINARY TRACT INFECTION: Your evaluation indicates that you have a urinary tract infection. This is due to germs growing in the bladder. This is a common problem. This infection usually responds quickly to antibiotics. Your antibiotic should be taken exactly as prescribed. Drink plenty of fluids -- three to four quarts a day. Occasionally, a bladder anesthetic will be prescribed to help stop the feeling of urgency until the antibiotic has a chance to clear the infection. This may cause your urine to be dark orange. Certain urine infections require a culture. If the doctor obtained a culture, the results will be back in two days. You should call to see if a change in treatment is needed. A repeat urinalysis after you finish treatment is often recommended. The physician will let you know if further testing is required. Call the doctor if you develop fever, chills, flank pain, inability to urinate, or blood in the urine. ANTIBIOTIC THERAPY: You have been given an antibiotic prescription. It's important that you take all the medication, unless instructed otherwise by your physician. Failure to complete the entire course can result in relapse of your condition. Common side effects of antibiotics include nausea, intestinal cramping, or diarrhea. Women may develop vaginal yeast infections, and babies can get yeast (thrush) in the mouth following the use of antibiotics. Contact your physician if you develop significant side effects from this medication. Allergy to this antibiotic can result in hives, wheezing, faintness, or itching. If symptoms of allergy occur, stop the medication and call the doctor. NITROFURANTOIN (MACRODANTIN, MACROBID): You have received a prescription for nitrofurantoin (Macrodantin). This antibiotic is used for urinary tract infections. If you have ever had a problem caused by this medication in the past, be sure the physician is aware of it. Common side effects of this medicine include nausea, vomiting, or decreased appetite. Notify your physician if these side effects become severe. Immediately stop this medicine and call the physician if you develop cough , shortness of breath, chest pain, weakness, jaundice (yellow color of the skin and whites of the eyes), or a skin rash. FOLLOW-UP CARE: If you have been referred to a physician for follow-up care, call the physician s office for an appointment as you were instructed or within the next two days. If you experience worsening or a significant change in your symptoms, notify the physician immediately or return to the Emergency Department at any time for re-evaluation. I have sent the urine for a culture. The urinalysis today reveals that you do still have a urinary tract infection however it looks improved from the previous one. I am placing you on a medication called Macrobid based upon the culture that was done at your most recent visit. It is very important that you follow-up with a urologist. I am also prescribing you some Reglan to help with the nausea. The rest of your workup was negative today for any worrisome findings. Prescriptions: Metoclopramide HCl [Reglan 10 mg Tablet] 1 - 2 tab PO ASDIR PRN #25 tablet PRN Reason: Nitrofurantoin/Nitrofuran Mac [Macrobid 100 mg Capsule] 1 tab PO BID #20 capsule Referrals: CHARLIE MALDONADO MD [Primary Care Provider] - Follow up as needed
[2018-01-16 09:27] LABS: ABSOLUTE EOSINOPHILS # (AUTO) 0.2 10^3/uL (0.0-0.6); ABSOLUTE LYMPHOCYTES (AUTO) 1.4 10^3/uL (0.5-4.7); ABSOLUTE MONOCYTES (AUTO) 1.6 10^3/uL (0.1-1.4); ABSOLUTE NEUT (AUTO) 9.5 10^3/uL (1.7-8.2); BASOPHILS % (AUTO) 0.3 % (0-2); EOSINOPHILS % (AUTO) 1.2 % (0-6); HEMATOCRIT 39.5 % (37.9-51.0); HEMOGLOBIN 13.4 g/dL (13.5-17.0); LYMPHOCYTES % (AUTO) 11.4 % (13-45); MEAN CORPUSCULAR HEMOGLOBIN 28.4 pg (27.0-33.4); MEAN CORPUSCULAR VOLUME 84 fl (80-97); MONOCYTES % (AUTO) 12.8 % (3-13); PLATELET COUNT 269 10^3/uL (150-450); RED BLOOD COUNT 4.72 10^6/uL (4.35-5.55); RED CELL DISTRIBUTION WIDTH 14.3 % (11.5-14.0); SEGMENTED NEUTROPHILS % (AUTO) 74.3 % (42-78); TOTAL CELLS COUNTED % (AUTO) 100 %; WHITE BLOOD COUNT 12.8 10^3/uL (4.0-10.5)
[2018-01-16 09:51] LABS: ALANINE AMINOTRANSFERASE 32 U/L (21-72); ALBUMIN 3.7 g/dL (3.5-5.0); ALKALINE PHOSPHATASE 84 U/L (38-126); ANION GAP 11 (5-19); ASPARTATE AMINO TRANSFERASE 22 U/L (17-59); BILIRUBIN,DIRECT 0.7 mg/dL (0.0-0.4); BILIRUBIN,TOTAL 1.7 mg/dL (0.2-1.3); BLOOD UREA NITROGEN 18 mg/dL (7-20); CALCIUM 9.4 mg/dL (8.4-10.2); CARBON DIOXIDE 25 mmol/L (22-30); CHLORIDE 99 mmol/L (98-107); GLUCOSE 145 mg/dL (75-110); LIPASE 72.5 U/L (23-300); POTASSIUM 4.6 mmol/L (3.6-5.0); SODIUM 134.5 mmol/L (137-145); TOTAL PROTEIN 6.8 g/dL (6.3-8.2)
[2018-01-16 11:47] LABS: APPEARANCE,URINE CLEAR; BILIRUBIN,URINE NEGATIVE (NEGATIVE); COLOR,URINE YELLOW; GLUCOSE, URINE NEGATIVE (NEGATIVE); KETONES,URINE TRACE mg/dL (NEGATIVE); LEUKOCYTE ESTERASE,URINE LARGE (NEGATIVE); NITRITE,URINE NEGATIVE (NEGATIVE); PROTEIN,URINE NEGATIVE (NEGATIVE); URINE SPECIFIC GRAVITY 1.013
[2018-01-16] MEDS ORDERED: CEFTRIAXONE INJ 1000 MG VIAL IV ONE (11:50)
[2018-01-16 13:45] VITALS: BP 168/94
== END 2018-01-16 13:45 | disposition home or self-care (01) ==
LOC: ER 06:09
DX: N39.0 Urinary tract infection, site not specified (principal); B96.89 Other specified bacterial agents as the cause of diseases classified elsewhere; R11.2 Nausea with vomiting, unspecified; I10 Essential (primary) hypertension; E11.9 Type 2 diabetes mellitus without complications; Z88.8 Allergy status to other drugs, medicaments and biological substances
CPT/HCPCS: 99284; 96361; 96375; 96365; 36415; 87086; 83690; 85025; 80053; 81001; J2765; J0696

== ENCOUNTER → 2019-01-28 | Outpatient (CLI) | payer BC ==
--- NOTE | 2019-01-28 13:22 | RADIOLOGY REPORT (SQ) ---
EXAM DESCRIPTION: CAROTID DOPPLER COMPLETED DATE/TIME: 01/28/2019 11:36 am REASON FOR STUDY: PVD I73.9 PERIPHERAL VASCULAR DISEASE, UNSPECIFIED COMPARISON: None. TECHNIQUE: Grayscale ultrasound, Doppler velocity and spectra, and color Doppler images acquired of the extra-cranial carotid and vertebral arteries. Images stored on PACS. LIMITATIONS: None. FINDINGS: RIGHT CAROTID CCA Velocities: Within normal limits. ICA Velocities Peak systolic 38 cm/s. End diastolic 11 cm/s. Proximal ICA/CCA peak systolic ratio 0.64. Spectra normal. No significant plaque. LEFT CAROTID CCA Velocities: Within normal limits. ICA Velocities Peak systolic 72 cm/s. End diastolic 22 cm/s. Proximal ICA/CCA peak systolic ratio 1.2. Spectra normal. No significant plaque. VERTEBRAL ARTERIES: Antegrade flow. Normal waveforms. SUBCLAVIAN ARTERIES: No finding. OTHER: No other significant finding. IMPRESSION: NO HEMODYNAMICALLY SIGNIFICANT STENOSIS. COMMENT: Quality ID #[id number]: Velocity criteria are extrapolated from the diameter data as defined by t he Society of Radiologists in Ultrasound Consensus Conference. Radiology 2003: 229; 340-346. TECHNICAL DOCUMENTATION: JOB ID: [id number] [employer]- All Rights Reserved Reading location - IP/workstation name: [email or web address]
--- NOTE | 2019-01-29 10:33 | XCELERA REPORT ---
[address] [address] Lower Extremity Arterial Evaluation Name: LEATHA CAPONE Age: 64 yrs Gender: Male : 1955 Patient Status: Outpatient Patient Location: Study Date: 01/28/2019 09:22 AM Procedure: A color flow and duplex scan of the lower extremity arteries was performed bilaterally with velocity and waveform anaylsis. Reason For Study: PVD Ordering Physician: CHARLIE MALDONADO Performed By: Lupe Wallace Measurements and Calculations Right Left BOARD CERTIFIED ARTS THERAPIST PSV 71.7 78.9 cm/sec Prox PFA PSV 86.0 72.2 cm/sec Prox SFA PSV 92.1 -69.5 cm/sec Mid SFA PSV -68.9 -90.4 cm/sec Dist SFA PSV -73.3 -64.5 cm/sec Prox Pop A PSV -41.9 76.6 cm/sec Mid MORALES PSV 48.5 60.5 cm/sec Mid CAREERS ADVISER PSV 54.6 36.1 cm/sec Jimy Pedis PSV 63.3 57.0 cm/sec Right Side Arterial Evaluation Normal velocity and triphasic waveforms noted from the Common Femoral artery to the infrageniculate vessels . Ankle Brachial index not ordered. Left Side Arterial Evaluation Normal velocity and triphasic waveforms noted from the Common Femoral artery to the infrageniculate vessels . Ankle Brachial index not ordered. Interpretation Summary No hemodynamically significant lesions in the bilateral lower extremities, on duplex imaging, at rest. : CHARLIE MALDONADO > Timothy Arguello
== END ==
LOC: SP 08:56
PROVIDERS: ATTEND Internal Medicine Geriatric Medicine
DX: I73.9 Peripheral vascular disease, unspecified (principal)
CPT/HCPCS: 93880; 93925

== ENCOUNTER → 2019-02-12 | Outpatient (CLI) | payer BC ==
--- NOTE | 2019-02-12 11:40 | RADIOLOGY REPORT (SQ) ---
EXAM DESCRIPTION: U/S ABDOMEN LIMITED W/O DOP COMPLETED DATE/TIME: 02/12/2019 9:41 am REASON FOR STUDY: (R11.0)NAUSEA R11.0 NAUSEA COMPARISON: 12/30/2017 TECHNIQUE: Dynamic and static grayscale images acquired of the abdomen and recorded on PACS. Additio nal selected color Doppler and spectral images recorded. LIMITATIONS: Limited examination due to body habitus and overlying bowel gas. FINDINGS: PANCREAS: Limited visualization of the pancreas due to overlying bowel gas. LIVER: Fatty liver appear The liver measures 19.0 cm in length, hepatomegaly. LIVER VASCULATURE: Normal directional flow of the main portal vein and hepatic veins. GALLBLADDER: No stones. The gallbladder wall measures 1.7 mm, normal wall thickness. No pericholecys tic fluid. ULTRASOUND-DETECTED HERNANDEZ'S SIGN: Negative. INTRAHEPATIC DUCTS AND COMMON DUCT: CBD measures 5.0 mm in diameter, normal. The intrahepatic ducts normal caliber. No filling defects. INFERIOR VENA CAVA: Normal flow. AORTA: The proximal and mid segments of the abdominal aorta are patent. The distal segment is obscu red by overlying bowel gas. RIGHT KIDNEY: The right kidney measures 11.1 cm in length, normal size. Normal echogenicity. No francisca id or suspicious masses. No hydronephrosis. No calcifications. PERITONEAL AND RIGHT PLEURAL SPACE: No ascites or effusions. OTHER: No other significant findings. IMPRESSION: 1. Fatty liver. Hepatomegaly. 2. The pancreas and distal segment of the abdominal aorta are obscured by overlying bowel gas. TECHNICAL DOCUMENTATION: JOB ID: [id number] [employer]- All Rights Reserved Reading location - IP/workstation name: [email or web address]
== END ==
LOC: RAD 08:53
PROVIDERS: ATTEND Internal Medicine Gastroenterology
DX: R11.0 Nausea (principal)
CPT/HCPCS: 76705

== ENCOUNTER 2019-03-05 08:21 | Emergency (ER) | payer BC ==
[2019-03-05 08:56] LABS: ABSOLUTE EOSINOPHILS # (AUTO) 0.2 10^3/uL (0.0-0.6); ABSOLUTE LYMPHOCYTES (AUTO) 1.9 10^3/uL (0.5-4.7); ABSOLUTE MONOCYTES (AUTO) 0.8 10^3/uL (0.1-1.4); ABSOLUTE NEUT (AUTO) 5.9 10^3/uL (1.7-8.2); BASOPHILS % (AUTO) 0.4 % (0-2); EOSINOPHILS % (AUTO) 1.8 % (0-6); HEMATOCRIT 44.1 % (37.9-51.0); HEMOGLOBIN 14.8 g/dL (13.5-17.0); LYMPHOCYTES % (AUTO) 21.7 % (13-45); MEAN CORPUSCULAR HEMOGLOBIN 28.6 pg (27.0-33.4); MEAN CORPUSCULAR HGB CONC 33.6 g/dL (32.0-36.0); MEAN CORPUSCULAR VOLUME 85 fl (80-97); MONOCYTES % (AUTO) 9.2 % (3-13); PLATELET COUNT 245 10^3/uL (150-450); RED CELL DISTRIBUTION WIDTH 14.3 % (11.5-14.0); SEGMENTED NEUTROPHILS % (AUTO) 66.9 % (42-78); TOTAL CELLS COUNTED % (AUTO) 100 %; WHITE BLOOD COUNT 8.8 10^3/uL (4.0-10.5)
[2019-03-05 09:25] LABS: ALBUMIN 4.2 g/dL (3.5-5.0); ALKALINE PHOSPHATASE 104 U/L (38-126); ANION GAP 12 (5-19); ASPARTATE AMINO TRANSFERASE 31 U/L (17-59); BILIRUBIN,DIRECT 0.1 mg/dL (0.0-0.4); BILIRUBIN,TOTAL 0.9 mg/dL (0.2-1.3); BLOOD UREA NITROGEN 17 mg/dL (7-20); CALCIUM 10.2 mg/dL (8.4-10.2); CARBON DIOXIDE 26 mmol/L (22-30); CHLORIDE 99 mmol/L (98-107); CREATINE KINASE 69 U/L (55-170); GLUCOSE 193 mg/dL (75-110); POTASSIUM 4.8 mmol/L (3.6-5.0); TOTAL PROTEIN 7.1 g/dL (6.3-8.2)
[2019-03-05 09:34] LABS: CREATINE KINASE MB 0.96 ng/mL (<4.55)
[2019-03-05 09:35] LABS: TROPONIN I < 0.012 ng/mL
[2019-03-05] MEDS ORDERED: MECLIZINE HCL 25 MG TABLET PO ONE (10:20)
--- NOTE | 2019-03-05 10:26 | ER Document Report ---
ED Dizziness/Weakness - General Chief Complaint: Dizziness Stated Complaint: DIZZINESS Time Seen by Provider: 03/05/19 09:56 Primary Care Provider: CHARLIE MALDONADO MD [Primary Care Provider] - Follow up as needed Information source: Patient TRAVEL OUTSIDE OF THE [place] IN LAST 30 DAYS: No - HPI Patient complains to provider of: Dizziness Onset/Duration: Sudden Quality of pain: No pain Severity: Moderate Pain Level: 2 Context: Chronic dizziness Associated symptoms: None Exacerbated by: Change in position, Movement of head Baseline gait: Walks w/o assistance Notes: 64 year old male with complaints of dizziness is here with rather abrupt onset of vertigo. Couldn't stand or walk well this am due to that. Nausea accompanie s. No fever or chills or rash. H/O a fib. - Related Data Allergies/Adverse Reactions: bismuth subsalicylate [From Pepto-Bismol] Allergy (Verified 11/14/17 11:03) hydrocodone Adverse Reaction (Verified 12/20/17 12:26) ondansetron [From Zofran] Adverse Reaction (Verified 12/20/17 12:26) oxycodone Adverse Reaction (Verified 12/20/17 12:26) Home Medications: Doxazosin Mesylate. Atorvastatin. Tamsulosin HCL. Metformi n. Glimepiride. Diltiazem. Isosorbide [place] ER. Eliquis. Dofetilide. Labetalol HCL. Spionolactone. Reglan. Levocetirizine. Fluticasone Propionate. Sodium Bicarbonate. Allopurinol. Men's Multivitamin. Sertraline HCL. Vitamin E. Vitamin C. Alpha Lipoic Acid Past Medical History - Social History Smoking Status: Unknown if Ever Smoked Frequency of alcohol use: None Drug Abuse: None Family History: Reviewed & Not Pertinent Patient has suicidal ideation: No Patient has homicidal ideation: No - Past Medical History Cardiac Medical History: Reports: Hx Atrial Fibrillation - ablation, Hx Hypercholesterolemia, Hx Hypertension Denies: Hx Coronary Artery Disease, Hx Heart Attack Pulmonary Medical History: Denies: Hx Asthma, Hx Bronchitis, Hx COPD, Hx Pneumonia Neurological Medical History: Denies: Hx Cerebrovascular Accident, Hx Seizures Endocrine Medical History: Reports: Hx Diabetes Mellitus Type 2 Renal/ Medical History: Reports: Hx Kidney Stones. Denies: Hx Peritoneal Dialysis GI Medical History: Reports: Hx Diverticulitis Musculoskeletal Medical History: Denies Hx Arthritis Past Surgical History: Reports: Hx Cardiac Surgery - ablation, Hx Tonsillectomy - Immunizations Hx Diphtheria, Pertussis, Tetanus Vaccination: Yes Hx Pneumococcal Vaccination: 04/24/15 Review of Systems - Review of Systems Constitutional: No symptoms reported EENT: No symptoms reported Cardiovascular: No symptoms reported Respiratory: No symptoms reported Gastrointestinal: No symptoms reported Genitourinary: No symptoms reported Male Genitourinary: No symptoms reported Musculoskeletal: No symptoms reported Skin: No symptoms reported Hematologic/Lymphatic: No symptoms reported Neurological/Psychological: No symptoms reported Physical Exam - Vital signs Vitals: Temp Pulse Resp BP Pulse Ox 97.6 F 79 16 141/75 H 94 03/05/19 08:26 03/05/19 08:26 03/05/19 08:26 03/05/19 08:26 03/05/19 08:26 Interpretation: Normal - General General appearance: Appears well, Alert - HEENT Head: Normocephalic, Atraumatic Eyes: Normal Pupils: PERRL - Respiratory Respiratory status: No respiratory distress Chest status: Nontender Breath sounds: Normal Chest palpation: Normal - Cardiovascular Rhythm: Regular Heart sounds: Normal auscultation Murmur: No - Abdominal Inspection: Normal Distension: No distension Bowel sounds: Normal Tenderness: Nontender Organomegaly: No organomegaly - Back Back: Normal, Nontender - Extremities General upper extremity: Normal inspection, Nontender, Normal color, Normal ROM, Normal temperature General lower extremity: Normal inspection, Nontender, Normal color, Normal ROM, Normal temperature, Normal weight bearing. No: Faye's sign - Neurological Neuro grossly intact: Yes Cognition: Normal Orientation: AAOx4 Aly Coma Scale Eye Opening: Spontaneous Aly Coma Scale Verbal: Oriented [place] Coma Scale Motor: Obeys Commands Aly Coma Scale Total: 15 Speech: Normal Motor strength normal: LUE, RUE, LLE, RLE Sensory: Normal - Psychological Associated symptoms: Normal affect, Normal mood - Skin Skin Temperature: Warm Skin Moisture: Dry Skin Color: Normal Course - Re-evaluation Re-evalutation: 03/05/19 10:25 MDM 64 year old with A fib and chronic dizziness. Imaging brain and checking metabolic causes. Upon recheck he has some nausea that persists but otherwise is improved. Given benzo and reglan here for that. - Vital Signs Vital signs: Temp Pulse Resp BP Pulse Ox 97.6 F 79 16 141/75 H 94 03/05/19 08:26 03/05/19 08:26 03/05/19 08:26 03/05/19 08:26 03/05/19 08:26 - Laboratory Result Diagrams: 03/05/19 08:44 03/05/19 08:44 Laboratory results interpreted by me: 03/05/19 03/05/19 08:44 08:44 RDW 14.3 H Glucose 193 H - Diagnostic Test Radiology reviewed: Reports reviewed - EKG Interpretation by Me EKG shows normal: Sinus rhythm Rhythm: NSR Heart block present: 1st Degree - NSR NL [place] 1st degree av block nno st elevation or depression my interpretaiton. Discharge - Discharge Clinical Impression: Dizziness, Vertigo, Nausea Hyperglycemia due to type 2 diabetes mellitus Qualifiers: Diabetes mellitus snf insulin use: unspecified machine long goods helper insulin use status Qualified Code(s): E11.65 - Type 2 diabetes mellitus with hyperglycemia Condition: Good Disposition: HOME, SELF-CARE Instructions: Antinausea Medication ([facility]), Dizziness ([facility]), Meclizine ([facility]), Vertigo ([facility]) Additional Instructions: See your doctor in follow up. Reschedule the ENT appointment you were not able to make today. Return here for any problems or any concerns. Prescriptions: Meclizine HCl [Antivert 12.5 mg Tablet] 12.5 mg PO TID #21 tablet Referrals: CHARLIE MALDONADO MD [Primary Care Provider] - Follow up as needed
--- NOTE | 2019-03-05 11:02 | RADIOLOGY REPORT (SQ) ---
EXAM DESCRIPTION: CHEST SINGLE VIEW COMPLETED DATE/TIME: 03/05/2019 10:53 am REASON FOR STUDY: HTN COMPARISON: None. EXAM PARAMETERS: NUMBER OF VIEWS: One view. TECHNIQUE: Single frontal radiographic view of the chest acquired. RADIATION DOSE: NA LIMITATIONS: None. FINDINGS: LUNGS AND PLEURA: Low inspiratory lung volumes without a superimposed consolidation, pleur al effusion or pneumothorax. MEDIASTINUM AND HILAR STRUCTURES: No mediastinal or hilar contour abnormality. HEART AND VASCULAR STRUCTURES: The cardiac silhouette and pulmonary vasculature are within normal louise its given the low inspiratory lung volumes. BONES: No acute findings. HARDWARE: None in the chest. OTHER: No other finding. IMPRESSION: Low inspiratory lung volumes without a superimposed acute cardiopulmonary process. TECHNICAL DOCUMENTATION: JOB ID: [id number] [employer]- All Rights Reserved Reading location - IP/workstation name: [email or web address]
--- NOTE | 2019-03-05 11:06 | RADIOLOGY REPORT (SQ) ---
EXAM DESCRIPTION: CT HEAD WITHOUT COMPLETED DATE/TIME: 03/05/2019 10:54 am REASON FOR STUDY: dizziness COMPARISON: None. TECHNIQUE: Axial images acquired through the brain without intravenous contrast. Images reviewed wi th bone, brain and subdural windows. Additional sagittal and coronal reconstructions were generated. Images stored on PACS. All CT scanners at this facility use dose modulation, iterative reconstruction, and/or weight based d osing when appropriate to reduce radiation dose to as low as reasonably achievable (ALARA). [facility]: Dose Right [facility]: CareDose [facility]: Dose Right [facility]: Teradose 4D [facility]: Gift Pinpoint RADIATION DOSE: CT Rad equipment meets quality standard of care and radiation dose reduction techniq ues were employed. CTDIvol: 53.2 mGy. DLP: 1044 mGy-cm. mGy. LIMITATIONS: None. FINDINGS: The patchy areas of hypoattenuation within the supratentorial periventricular and subcorti sarah white matter are nonspecific and could represent the sequela of chronic microvascular ischemia. There is no acute intracranial hemorrhage, vascular territorial infarct, extra-axial fluid collection , mass effect or midline shift. There is no effacement of the cerebral sulci or basal subarachnoid c isterns. The perez-white matter differentiation is preserved. The caliber of the ventricles is conco rdant with the degree of sulcation. The orbits and globes are intact. The paranasal sinuses and the mastoid air cells are clear. There is no fracture of the calvarium. IMPRESSION: No acute intracranial abnormality. EVIDENCE OF ACUTE STROKE: NO. COMMENT: Quality ID # [id number]: Final reports with documentation of one or more dose reduction techniques (e.g., Automated exposure control, adjustment of the mA and/or kV according to patient size, use of iterative reconstruction technique) TECHNICAL DOCUMENTATION: JOB ID: [id number] [employer]- All Rights Reserved Reading location - IP/workstation name: [email or web address]
[2019-03-05] MEDS ORDERED: METOCLOPRAMIDE HCL INJ/PF 10 MG/2 ML SDV IV ONE (12:32)
[2019-03-05] MEDS ORDERED: LORAZEPAM INJ 2 MG/1 ML VIAL IV ONE (12:33)
[2019-03-05 14:15] VITALS: BP 141/76
--- NOTE | 2019-03-05 16:19 | EKG REPORT ---
SEVERITY:- ABNORMAL ECG - SINUS RHYTHM FIRST DEGREE AV BLOCK : Confirmed by: Rand Marshall MD 05-Mar-2019 16:17:12
== END 2019-03-05 14:07 | disposition home or self-care (01) ==
LOC: ER 08:21
DX: R11.0 Nausea (principal); R42 Dizziness and giddiness; E11.65 Type 2 diabetes mellitus with hyperglycemia; I48.91 Unspecified atrial fibrillation; E78.00 Pure hypercholesterolemia, unspecified; I10 Essential (primary) hypertension; Z88.6 Allergy status to analgesic agent; Z87.442 Personal history of urinary calculi
CPT/HCPCS: 93005; 36415; 82553; 82550; 84443; 85025; 80053; 84484; 71045; 70450; 93010; J2765; J2060; 96374; 96375; 99285

== ENCOUNTER → 2019-10-18 | Outpatient (CLI) | payer BC ==
--- NOTE | 2019-10-18 13:13 | RADIOLOGY REPORT (SQ) ---
EXAM DESCRIPTION: NM GASTRIC EMPTYING STUDY IMAGES COMPLETED DATE/TIME: 10/18/2019 12:56 pm REASON FOR STUDY: NAUSEA (R11.0) R11.0 NAUSEA COMPARISON: 06/25/2014 RADIONUCLIDE AND DOSE: 2.2 millicuries Tc-99m Sulfur Colloid. A wide variety of solid foods have been used. The route of agent administration: Oral. TECHNIQUE: 1 minute serial static imaging performed at time of meal, 1 hour, 2 hours, 3 hours, and 4 hours as needed. Once stomach reaches 90% emptying, the test is complete. Image intensity values pl otted with respect to time with linear regression algorithm. LIMITATIONS: None. FINDINGS: Patient was observed for 4 hours. Immediate post meal serves as baseline. Gastric emptying at 60 minutes was 52%. Gastric emptying at 90 minutes was 67% Gastric emptying at 120 minutes was 77%. Gastric emptying at 240 minutes was 95%. Normal values: 60 minutes: 30-90% retained. If less than 30%, abnormally rapid emptying. If greater than 90%, delaye d gastric emptying. 120 minutes: <60% retained. If greater than 60%, delayed gastric emptying. 240 minutes: <10% retained. If greater than 10%, delayed gastric emptying. IMPRESSION: NORMAL GASTRIC EMPTYING. TECHNICAL DOCUMENTATION: JOB ID: [id number] [email or web address]- All Rights Reserved Reading location - IP/workstation name: [email or web address]
== END ==
LOC: RAD 07:50
PROVIDERS: ATTEND Internal Medicine Geriatric Medicine
DX: R11.0 Nausea (principal)
CPT/HCPCS: 78264; A9541

== ENCOUNTER 2019-11-14 09:45 | Emergency (ER) | payer BC ==
--- NOTE | 2019-11-14 11:31 | ER Document Report ---
ED General - General Chief Complaint: Nausea Stated Complaint: NAUSEA Time Seen by Provider: 11/14/19 11:07 Primary Care Provider: CHARLIE MALDONADO MD [Primary Care Provider] - Follow up as needed Notes: Patient presents with over 5 weeks of nausea. He says he is nauseous every day gets better at 5 or 6 in the evening is able to eat normally but before that is not. Has been seen multiple times in the ED had multiple testing and work-up and is scheduled to have an endoscopy soon with GI. He is tried Zofran but cannot take it because "of my heart" and says that oral Phenergan is not working quite as well. Has had no weight loss no bleeding has no current abdominal pain or nausea in the ED today. TRAVEL OUTSIDE OF THE [place] IN LAST 30 DAYS: No - Related Data Allergies/Adverse Reactions: bismuth subsalicylate [From Pepto-Bismol] Allergy (Verified 11/14/19 11:20) hydrocodone Adverse Reaction (Verified 11/14/19 11:20) ondansetron [From Zofran] Adverse Reaction (Verified 11/14/19 11:20) oxycodone Adverse Reaction (Verified 11/14/19 11:20) Past Medical History - Social History Smoking Status: Never Smoker Frequency of alcohol use: None Drug Abuse: None Family History: Reviewed & Not Pertinent Patient has homicidal ideation: No - Past Medical History Cardiac Medical History: Reports: Hx Atrial Fibrillation - ablation, Hx Hypercholesterolemia, Hx Hypertension Denies: Hx Coronary Artery Disease, Hx Heart Attack Pulmonary Medical History: Denies: Hx Asthma, Hx Bronchitis, Hx COPD, Hx Pneumonia Neurological Medical History: Denies: Hx Cerebrovascular Accident, Hx Seizures Endocrine Medical History: Reports: Hx Diabetes Mellitus Type 2 Renal/ Medical History: Reports: Hx Kidney Stones. Denies: Hx Peritoneal Dialysis GI Medical History: Reports: Hx Diverticulitis Musculoskeletal Medical History: Denies Hx Arthritis Past Surgical History: Reports: Hx Cardiac Surgery - ablation, Hx Kidney (Renal Surgery), Hx Tonsillectomy - Immunizations Hx Diphtheria, Pertussis, Tetanus Vaccination: Yes Hx Pneumococcal Vaccination: 04/24/15 Review of Systems - Review of Systems Notes: REVIEW OF SYSTEMS GEN: Denies fever, chills, weight loss ENT: Denies sore throat, nasal discharge, ear pain EYES: Denies blurry vision, eye pain, discharge CV: Denies chest pain, palpitations, edema RESP: Denies cough, shortness of breath, wheezing GI: Nausea no vomiting MSK: Denies joint pain/swelling, edema, SKIN: Denies rash, skin lesions LYMPH: Denies swollen glands/lymph nodes NEURO: Denies headache, focal weakness or numbness, dizziness PSYCH: Denies depression, suicidal or homicidal ideation PHYSICAL EXAMINATION General: No acute distress, well-nourished Head: Atraumatic, normocephalic ENT: Mouth normal, oropharynx moist, no exudates or tonsillar enlargement Eyes: Conjunctiva normal, pupils equal, lids normal Neck: No JVD, supple, no guarding CVS: Normal rate, regular rhythm, no murmurs Resp: No resp distress, equal and normal breath sounds bilaterally GI: Nondistended, soft, no tenderness to palpation, no rebound or guarding Ext: No deformities, no edema, normal range of motion in upper and lower ext Back: No CVA or midline TTP Skin: No rash, warm Lymphatic: No lymphadeopathy noted Neuro: Awake, alert. Face symmetric. GCS 15. Physical Exam - Vital signs Vitals: Temp Pulse Resp BP Pulse Ox 97.0 F 71 18 147/94 H 100 11/14/19 09:45 11/14/19 09:45 11/14/19 09:45 11/14/19 09:45 11/14/19 09:45 Course - Re-evaluation Re-evalutation: 11/14/19 14:57 Subacute nausea without abdominal pain no tenderness normal vital signs multiple negative work-ups and I do not think he needs a work-up today again given lack of pain and the fact that his nausea gets better every evening. We discussed at length his need for follow-up and I will switch him to a Phenergan suppository to see if that helps Doubt pancreatitis or any kind of malignancy given the fact that he says he is had negative imaging I have discussed with the patient there likely diagnosis, aftercare plan, follow-up plans and my usual and customary return precautions. They verbalized understanding of this. - Vital Signs Vital signs: Temp Pulse Resp BP Pulse Ox 97.5 F 70 18 148/88 H 100 11/14/19 12:03 11/14/19 12:03 11/14/19 12:03 11/14/19 12:03 11/14/19 12:03 Discharge - Discharge Clinical Impression: Nausea & vomiting Qualifiers: Vomiting type: unspecified Vomiting Intractability: non-intractable Qualified Code(s): R11.2 - Nausea with vomiting, unspecified Condition: Good Disposition: HOME, SELF-CARE Instructions: Antinausea Medication ([facility]) Additional Instructions: Take Phenergan if you are taking Reglan. Pick 1 and stick with it. Prescriptions: Promethazine HCl [Phenergan 25 mg Supp.rect] 1 supp NE Q6H #12 supp.rect Referrals: CHARLIE MALDONADO MD [Primary Care Provider] - Follow up as needed
[2019-11-14 12:04] VITALS: BP 148/88
== END 2019-11-14 12:00 | disposition home or self-care (01) ==
LOC: ER 09:45
DX: R11.2 Nausea with vomiting, unspecified (principal); I10 Essential (primary) hypertension; E11.9 Type 2 diabetes mellitus without complications; Z88.8 Allergy status to other drugs, medicaments and biological substances
CPT/HCPCS: 99282